=== PATIENT | male | born 1945 | race American Indian/Alaskan Native ===

== ENCOUNTER 2019-06-04 16:38 | Outpatient (CLI) | payer SELFPAY ==
[2019-06-04 17:12] LABS: Basophils # (Auto) 0.1 K/mm3 (0.0-0.1); Eosinophils # (Auto) 0.1 K/mm3 (0.0-0.4); Eosinophils % (Auto) 1.5 % (0.0-4.3); Hematocrit 34.4 % (35.5-45.6); Hemoglobin 10.9 gm/dl (11.8-15.2); Lymphocytes # (Auto) 0.8 K/mm3 (1.2-5.4); Lymphocytes % (Auto) 10.1 % (13.4-35.0); Mean Corpuscular HGB Conc 32 % (32-34); Mean Corpuscular Volume 86 fl (84-94); Monocytes # (Auto) 0.5 K/mm3 (0.0-0.8); Monocytes % (Auto) 6.3 % (0.0-7.3); Platelet Count 264 K/mm3 (140-440); Red Blood Count 4.02 M/mm3 (3.65-5.03); Red Cell Distribution Width 19.3 % (13.2-15.2)
[2019-06-04 17:46] LABS: INR 5.77 (0.87-1.13)
== END 2019-06-04 16:39 | disposition home or self-care (01) ==
LOC: LAB 16:38
PROVIDERS: ATTEND Internal Medicine
DX: I48.2 Chronic atrial fibrillation (principal); I12.0 Hypertensive chronic kidney disease with stage 5 chronic kidney disease or end stage renal disease; E11.22 Type 2 diabetes mellitus with diabetic chronic kidney disease; N18.6 End stage renal disease
CPT/HCPCS: 36415; 85025; 85610

== ENCOUNTER 2020-10-07 20:45 | Inpatient (IN) | payer MEDICARE ==
--- NOTE | 2020-10-07 21:07 | Consultation ---
History of Present Illness Consult date: 10/07/20 Medications and Allergies Allergies Allergy/AdvReac Type Severity Reaction Status Date / Time minoxidil Allergy Severe Angioedema Verified 07/30/13 01:36 Home Medications Medication Instructions Recorded Confirmed Last Taken Type Glimepiride [Amaryl] 1 mg PO QAM #30 tablet 08/09/13 Unknown Rx Metoprolol [Lopressor TAB] 100 mg PO BID #60 tablet 08/09/13 Unknown Rx Pantoprazole [Protonix] 40 mg PO QDAY #30 tablet 08/09/13 Unknown Rx Sodium Bicarbonate 650 mg PO TID #90 tablet 08/09/13 Unknown Rx Warfarin [Coumadin] 5 mg PO QDAY #30 tablet 08/09/13 Unknown Rx Warfarin [Coumadin] 5 mg PO QDAY #30 tablet 08/09/13 Unknown Rx cloNIDine [Catapres] 0.2 mg PO TID #90 tablet 08/09/13 Unknown Rx dilTIAZem CD [Cardizem CD] 120 mg PO BID #60 cap 08/09/13 Unknown Rx Assessment and Plan [facility] Tele[facility] Consult Services Date of Service: 10/07/2020 20:41:16 Impression: Rule Out Acute Ischemic Stroke Comments/Sign-Out: Patient with history of stroke (Aug), GI bleed (one week ago), CKD, left leg amputation Presents with aphasia Head CT: No acute Intracranial hemorrhage. NIHSS 14 Symptoms/presentation is consistent with Acute Ischemic Stroke. Due to recent Stroke and recent GI Bleed he is not a candidate for IV Alteplase. Will do STAT head and neck CTA to investigate for Large Vessel Occlusion. Mechanism of Stroke: Small Vessel Disease Metrics: Last Known Well: 10/07/2020 19:45:00 [facility] Notification Time: 10/07/2020 20:41:00 Arrival Time: 10/07/2020 20:45:00 Stamp Time: 10/07/2020 20:41:16 Time First Login Attempt: 10/07/2020 20:45:02 Video Start Time: 10/07/2020 20:45:02 Symptoms: aphasia NIHSS Start Assessment Time: 10/07/2020 20:56:00 Patient is not a candidate for Alteplase/Activase. Patient was not deemed candidate for Alteplase/Activase thrombolytics because of GI Malignancy or GI Bleeding (Within 21 Days). Video End Time: 10/07/2020 21:08:10 CT head was reviewed. Clinical Presentation is Suggestive of Large Vessel Occlusive Disease, Recommendations are as Follows CTA Head and Neck. ED Physician notified of diagnostic impression and management plan on 10/07/2020 21:11:45 Our recommendations are outlined below. Recommendations: Activate Stroke Protocol Admission/Order Set Stroke/Telemetry Floor Neuro Checks Bedside Swallow Eval DVT Prophylaxis IV Fluids, Normal Saline Head of Bed 30 Degrees Euglycemia and Avoid Hyperthermia (PRN Acetaminophen) Antiplatelet therapy if no contraindication (given recent GI Bleed) Noncontrast brain MRI consider ECHO Physical Therapy/Occupational Therapy/Speech Therapy Routine Consultation with Inhouse Neurology for Follow up Care Sign Out: Discussed with Emergency Department Provider History of Present Illness: Patient is a 74 year old Male. Patient was brought by EMS for symptoms of aphasia Patient with history of stroke (Aug), GI bleed (one week ago), CKD, left leg amputation last known well per EMS and Presenting symptoms/Chief compl aint/reason for consult: 19:45 Lost ability to speak. Anticoagulation or Antiplatelet use: no Chart reviewed for Pertinent medical, surgical, family history. Chart reviewed for Medications list and allergies. Pertinent positive and negative review of systems noted in History of Present Illness. There is history of recent stroke. Past Medical History: Stroke Anticoagulant use: No Antiplatelet use: No Examination: BP(171/83), Pulse(114), Blood Glucose(pending) 1A: Level of Consciousness - Movements to Pain + 2 1B: Ask Month and Age - Aphasic + 2 1C: Blink Eyes & Squeeze Hands - Performs Both Tasks + 0 2: Test Horizontal Extraocular Movements - Normal + 0 3: Test Visual Basurto - No Visual Loss + 0 4: Test Facial Palsy (Use Grimace if Obtunded) - Partial paralysis (lower face) + 2 5A: Test Left Arm Motor Drift - Drift, but doesn't hit bed + 1 5B: Test Right Arm Motor Drift - No Drift for 10 Seconds + 0 6A: Test Left Leg Motor Drift - Drift, hits bed + 2 6B: Test Right Leg Motor Drift - No Drift for 5 Seconds + 0 7: Test Limb Ataxia (FNF/Heel-Garibay) - No Ataxia + 0 8: Test Sensation - Normal; No sensory loss + 0 9: Test Language/Aphasia - Mute/Global Aphasia: No Usable Speech/Auditory Comprehension + 3 10: Test Dysarthria - Mute/Anarthric + 2 11: Test Extinction/Inattention - No abnormality + 0 NIHSS Score: 14 Patient/Family was informed the Neurology Consult would happen via TeleHealth consult by way of interactive audio and video telecommunications and consented to receiving care in this manner. Due to the immediate potential for life-threatening deterioration due to underlying acute neurologic illness, I spent 23 minutes providing critical care. This time includes time for face to face visit via telemedicine, review of medical records, imaging studies and discussion of findings with providers, the patient and/or family. Dr Taye Jensen [facility] Case [id number]
[2020-10-07] MEDS ORDERED: ASPIRIN 325 MG TAB PO ONE (21:18)
--- NOTE | 2020-10-07 21:18 | Cat Scan Report ---
CT HEAD WITHOUT CONTRAST INDICATION / CLINICAL INFORMATION: neuro deficits <6hrs or sx present upon awakening. Cerebrovascular accident. Code stroke patient. TECHNIQUE: All CT scans at this location are performed using CT dose reduction for ALARA by means of automated e xposure control. COMPARISON: None available. FINDINGS: HEMORRHAGE: No evidence of intracranial hemorrhage or extra-axial fluid collection. EXTRA-AXIAL SPACES: Cortical sulci and sylvian fissures are enlarged reflecting a degree of parenchym al volume loss which is within normal limits for the patient's age of . Basilar cisterns have an unre markable appearance. VENTRICULAR SYSTEM: The third and lateral ventricles are enlarged reflecting presence of age related parenchymal volume loss. CEREBRAL PARENCHYMA: A large area of decreased brain parenchymal attenuation is seen in the right cer ebral hemisphere involving portions of the frontal and parietal lobes. The appearance suggests the pr esence of a remote right MCA infarction. An area of decreased attenuation along the superior margin o f the insular cortex on the left may represent a remote small infarction. I do not identify definite evidence of an acute infarction. MIDLINE SHIFT OR HERNIATION: There is no mass effect. CEREBELLUM / BRAINSTEM: Brainstem has an unremarkable appearance. Age related cerebellar atrophy is n oted. MIDLINE STRUCTURES:Pituitary gland has an unremarkable appearance. No abnormalities are seen in the p ineal region. INTRACRANIAL VESSELS:Calcified atherosclerotic plaque is present along the course of the cavernous se gments of both internal carotid arteries. Similar findings are seen at the distal vertebral arteries. ORBITS: visualized portions of the orbits have an unremarkable appearance. SOFT TISSUES of HEAD: No significant abnormality. CALVARIUM: Evaluation of bone windows reveals no abnormalities. PARANASAL SINUSES / MASTOID AIR CELLS: Paranasal sinuses are free from inflammatory mucosal disease. Mastoid air cells are normally pneumatized. IMPRESSION: 1. Findings indicate the presence of remote right MCA infarction and possible old left insular infarc tion. 2. No indication of intracranial hemorrhage or mass. CODE STROKE: Time of Communication (GUEST SERVICES ATTENDANT/CDT): 2010 Central standard time Licensed Practitioner Receiving Report: Dr. Fox of the [facility] emergency de partment. Signer Name: Christiano Hopper MD Signed: 10/07/2020 9:14 PM Workstation Name: [id number]
--- NOTE | 2020-10-07 21:18 | Emergency Department Report ---
HPI - General Time Seen by Provider: 10/07/20 20:49 - HPI HPI: Room 1 The patient is a 74-year-old male present with a chief complaint of aphasia. Per EMS patient began having difficulty speaking approximately 1 hour prior to arrival. Patient has had a recent CVA but was able to speak per EMS. Approximate 1 hour prior to arrival the patient appeared to attempt to speak but was not able to get any words out. Patient mumbles and moans sounds but no clear words are appreciated. Patient communicates by shaking and nodding his head ED Past Medical Hx - Past Medical History Hx Hypertension: Yes Hx CVA: Yes Hx Diabetes: Yes Additional medical history: GI bleed - Family History Family history: no significant - Social History Smoking Status: Unknown if ever smoked Substance Use Type: None - Medications Home Medications: Home Medications Medication Instructions Recorded Confirmed Last Taken Type Glimepiride [Amaryl] 1 mg PO QAM #30 tablet 08/09/13 10/07/20 1 Day Ago Rx ~10/06/20 Pantoprazole [Protonix] 40 mg PO QDAY #30 tablet 08/09/13 10/07/20 1 Day Ago Rx ~10/06/20 Apixaban [Eliquis] 2.5 mg PO BID 10/07/20 10/07/20 1 Day Ago History ~10/06/20 AtorvaSTATin [Lipitor] 40 mg PO QHS 10/07/20 10/07/20 1 Day Ago History ~10/06/20 Calcium Acetate [Phoslo] 667 mg PO TID 10/07/20 10/07/20 1 Day Ago History ~10/06/20 Cyproheptadine 4 mg PO DAILY 10/07/20 10/07/20 Unknown History Folic Acid 1 mg PO DAILY 10/07/20 10/07/20 1 Day Ago History ~10/06/20 L. Acidophilus/Bifid. Animalis 1 each PO DAILY 10/07/20 10/07/20 Unknown History [Dialyvite Chewable Probiotic] Losartan [Cozaar] 25 mg PO QDAY 10/07/20 10/07/20 1 Day Ago History ~10/06/20 Metoprolol [Lopressor TAB] 50 mg PO BID 10/07/20 10/07/20 1 Day Ago History ~10/06/20 Vancomycin 1,250 mg/12.5 ml Vl 125 mg PO DAILY 10/07/20 10/07/20 1 Day Ago History ~10/06/20 amLODIPine [Norvasc] 10 mg PO DAILY 10/07/20 10/07/20 1 Day Ago History ~10/06/20 ED Review of Systems ROS: Stated complaint: POSS STROKE Other details as noted in HPI Comment: Unobtainable due to pts medical conditions (Aphasia) Physical Exam - Physical Exam Physical Exam: GENERAL: The patient is well-developed well-nourished male lying on stretcher not appearing to be in acute distress. [] HEENT: Normocephalic. Atraumatic. Extraocular motions are intact. Patient has moist mucous membranes. NECK: Supple. Trachea midline CHEST/LUNGS: Clear to auscultation. There is no respiratory distress noted. HEART/CARDIOVASCULAR: Regular. There is no tachycardia. There is no gallop rub or murmur. ABDOMEN: Abdomen is soft, nontender. Patient has normal bowel sounds. There is no abdominal distention. SKIN: There is no rash. There is no edema. There is no diaphoresis. NEURO: The patient is awake and alert. The patient is cooperative. The patient is aphasic. Cranial nerves II to XII grossly intact with exception of tongue deviating to the right MUSCULOSKELETAL: There is no evidence of acute injury. ED Course - Consultations Consultation #1: 10/07/20 21:12 Case discussed with telemetry neurologist-no TPA. Recommend CTA brain and neck. If negative admit for CVA work-up ED Medical Decision Making - Lab Data Result diagrams: 10/07/20 21:09 10/07/20 21:09 - Radiology Data Radiology results: report reviewed (CT head, CTA head, CTA neck), image reviewed (CT head, CTA neck, CTA head) [facility] [address] [place] [address] Cat Scan Report Signed Patient: Rob HARTMAN JR MR#: [id number] 5 : 1945 Acct:[id number] Age/Sex: 74 / M ADM Date: 10/07/20 Loc: ED Attending Dr: Ordering Physician: SAUNDRA PARKINSON MD Date of Service: 10/07/20 Procedure(s): CT head/brain wo con Accession Number(s): [id number] cc: SAUNDRA PARKINSON MD CT HEAD WITHOUT CONTRAST INDICATION / CLINICAL INFORMATION: neuro deficits <6hrs or sx present upon awakening. Cerebrovascular accident. Code stroke patient. TECHNIQUE: All CT scans at this location are performed using CT dose reduction for ALARA by means of automated exposure control. COMPARISON: None available. FINDINGS: HEMORRHAGE: No evidence of intracranial hemorrhage or extra-axial fluid collection. EXTRA-AXIAL SPACES: Cortical sulci and sylvian fissures are enlarged reflecting a degree of parenchymal volume loss which is within normal limits for the patient's age of . Basilar cisterns have an unremarkable appearance. VENTRICULAR SYSTEM: The third and lateral ventricles are enlarged reflecting presence of age related parenchymal volume loss. CEREBRAL PARENCHYMA: A large area of decreased brain parenchymal attenuation is seen in the right cerebral hemisphere involving portions of the frontal and parietal lobes. The appearance suggests the presence of a remote right MCA infarction. An area of decreased attenuation along the superior margin of the insular cortex on the left may represent a remote small infarction. I do not identify definite evidence of an acute infarction. MIDLINE SHIFT OR HERNIATION: There is no mass effect. CEREBELLUM / BRAINSTEM: Brainstem has an unremarkable appearance. Age related cerebellar atrophy is noted. MIDLINE STRUCTURES:Pituitary gland has an unremarkable appearance. No abnormalities are seen in the pineal region. INTRACRANIAL VESSELS:Calcified atherosclerotic plaque is present along the course of the cavernous segments of both internal carotid arteries. Similar findings are seen at the distal vertebral arteries. ORBITS: visualized portions of the orbits have an unremarkable appearance. SOFT TISSUES of HEAD: No significant abnormality. CALVARIUM: Evaluation of bone windows reveals no abnor malities. PARANASAL SINUSES / MASTOID AIR CELLS: Paranasal sinuses are free from inflammatory mucosal disease. Mastoid air cells are normally pneumatized. IMPRESSION: 1. Findings indicate the presence of remote right MCA infarction and possible old left insular infarction. 2. No indication of intracranial hemorrhage or mass. CODE STROKE: Time of Communication (VALVE LAPPER/CDT): 2010 Central standard time Licensed Practitioner Receiving Report: Dr. Parkinson of the [facility] emergency department. Signer Name: Christiano Hopper MD Signed: 10/07/2020 9:14 PM Workstation Name: [id number] Transcribed By: Dictated By: Christiano Hopper MD Electronically Authenticated By: Christiano Hopper MD Signed Date/Time: 10/07/202113 DD/ 99 TD/TT: [facility] [address] [id number] Cat Scan Report Signed Patient: Rob HARTMAN JR MR#: [id number] 5 : 1945 Acct:[id number] Age/Sex: 74 / M ADM Date: 10/07/20 Loc: ED Attending Dr: Ordering Physician: GERALD VALDEZ MD Date of Service: 10/07/20 Procedure(s): CT angio neck Accession Number(s): [id number] cc: GERALD VALDEZ MD CTA neck without and with intravenous contrast material CLINICAL HISTORY: stroke TECHNIQUE: Following acquisition of a timing bolus 0.625 mm thick contiguous axial scans were obtained from aortic arch to the skull base during rapid bolus intravenous contrast infusion. In addition to evaluation of axial source images multiplanar reconstructions were produced and reviewed for this report. 3 plane MIP reconstructions were produced and reviewed. Contrast dose report: Omnipaque 350: 100 ml, administered intravenously All CT examinations performed at this facility utilize modulated dose reduction, iterative reconstruction or weight-ba sed dosing, as appropriate, to obtain a radiation dose which is as low as can reasonably be achieved. FINDINGS: Thoracic aorta:Calcified atherosclerotic plaque is present along the aortic arch. No additional abnormalities are identified along the course of the visualized portions of the thoracic aor ta..The origins of the great vessels have an unremarkable appearance. Brachiocephalic artery, left common carotid artery origin and left subclavian artery are all free from hemodynamically significant atherosclerotic disease.. Right carotid artery: Mild calcified atherosclerotic plaque is seen at the right carotid bifurcation. There is no associated stenosis. Common carotid artery and cervical segments of the R ICA are free from significant atherosclerotic disease. Left carotid artery: Mild calcified atherosclerotic plaque is observed at the left carotid bifurcation. Left common carotid artery and cervical portions of the LICA are free from significant intercranial atherosclerotic disease. Posterior circulation: Right vertebral artery is dominant. Both vertebral arteries contribute to the basilar artery origin. The degree of stenosis, if any, is determined utilizing NASCET like criteria. In this case there is no indication of hemodynamically significant stenosis at the carotid bifurcations or elsewhere. Evaluation of the nonvascular soft tissue structures reveal no abnormality. There is no indication of cervical lymphadenopathy. No abnormalities are seen along the course of the airway. Visualized portions of the parotid glands and the submandibular salivary glands have a normal a ppearance. Thyroid gland has a normal appearance. Evaluation of the lung apices reveals no evidence of lung nodule or infiltrate. Small bilateral pleural effusions are demonstrated. Evaluation of the cervical spine is remarkable for widespread cervical spondylosis with no definite central canal stenosis. Note is made of a multi lumen right internal jugular central venous catheter. Catheter tip is not included on this study. IMPRESSION: 1. No indication of hemodynamically significant stenosis at the carotid bifurcations or elsewhere. Signer Name: Christiano Hopper MD Signed: 10/07/2020 10:53 PM Workstation Name: [id number] Transcribed By: Dictated By: Christiano Hopper MD Electronically Authenticated By: Christiano Hopper MD Signed Date/Time: 10/07/202252 DD/ 33 TD/TT: [place] [address] Cat Scan Report Signed Patient: Rob HARTMAN JR MR#: [id number] 5 : 1945 Acct:[id number] Age/Sex: 74 / M ADM Date: 10/07/20 Loc: ED Attending Dr: Ordering Physician: GERALD VALDEZ MD Date of Service: 10/07/20 Procedure(s): CT angio head Accession Number(s): [id number] cc: GERALD VALDEZ MD CTA head with intravenous contrast CLINICAL HISTORY: stroke TECHNIQUE: 0.625 mm thick contiguous axial scans were obtained from the skull base to the skull vertex during rapid bolus administration of intravenous contrast material. Multiplanar reconstructions were produced in the coronal and sagittal planes. In addition 3 plane MIP instructions were produced and reviewed for this report. The axial source images and reconstructed images were reviewed for this report. CONTRAST DOSE REPORT: Omnipaque 350: 100 ml administered intravenously. All CT scans at this location are performed using CT dose reduction for ALARA by means of automated exposure control. FINDINGS: Internal carotid arteries: Calcified atherosclerotic plaque is present along the course of the cavernous segments of both internal carotid arteries. There is no associated hemodynamically significant stenosis. Middle cerebral arteries:Normal and symmetrical M1 segments of the middle cerebral arteries are demonstrated. No abnormalities are seen on evaluation of the insular or opercular branches. Anterior cerebral arteries:Bilaterally symmetrical A1 segments are demonstrated. An intact anterior communicating artery is identified. No abnormalities are seen along the course of the A2 segments or their visualized pericallosal branches. Vertebral arteries:Bilaterally symmetrical vertebral arteries are demonstrated. Both vert ebral arteries contribute to the basilar artery origin. Basilar artery:Basilar artery has an unremarkable appearance. Posterior cerebral arteries: Bilaterally symmetrical posterior cerebral arteries are identified. Small posterior communicating arteries are present bilaterally. Dural sinuses: Dural venous sinuses are well demonstrated on this exam. There is no evidence of dural sinus thrombosis. IMPRESSION: 1. No evidence of intracranial stenosis or large vessel occlusion. Signer Name: Christiano Hopper MD Signed: 10/07/2020 10:48 PM Workstation Name: [id number] Transcribed By: Dictated By: Christiano Hopper MD Electronically Authenticated By: Christiano Hopper MD Signed Date/Time: 10/07/202247 DD/ 37 TD/TT: - Medical Decision Making Patient took Eliquis today. Subsequently, aspirin not administered in the ED - Differential Diagnosis CVA Critical care attestation.: If time is entered above; I have spent that time in minutes in the direct care of this critically ill patient, excluding procedure time. ED Disposition Clinical Impression: CVA (cerebral vascular accident) Disposition: -09 OP ADMIT IP TO THIS HOSP Is pt being admited?: Yes Does the pt Need Aspirin: No Condition: Fair Referrals: EMERALD HAYES MD [Primary Care Provider] - 3-5 Days Time of Disposition: 23:05 (Hospitalist paged (Dr Gaston))
[2020-10-07 21:21] LABS: Basophils # (Auto) 0.1 K/mm3 (0.0-0.1); Eosinophils # (Auto) 0.3 K/mm3 (0.0-0.4); Hematocrit 22.9 % (35.5-45.6); Hemoglobin 7.7 gm/dl (11.8-15.2); Lymphocytes # (Auto) 0.9 K/mm3 (1.2-5.4); Lymphocytes % (Auto) 15.7 % (13.4-35.0); Mean Corpuscular HGB Conc 34 % (32-34); Mean Corpuscular Volume 89 fl (84-94); Monocytes # (Auto) 0.5 K/mm3 (0.0-0.8); Monocytes % (Auto) 8.8 % (0.0-7.3); Platelet Count 192 K/mm3 (140-440); Red Blood Count 2.58 M/mm3 (3.65-5.03); Red Cell Distribution Width 16.9 % (13.2-15.2)
[2020-10-07] MEDS ORDERED: ASPIRIN EC 325 MG TAB PO ONE (21:21)
[2020-10-07 21:30] LABS: Calcium 9.7 mg/dL (8.4-10.2)
[2020-10-07 21:34] LABS: INR 1.15 (0.87-1.13)
[2020-10-07 21:48] LABS: Chol/HDL Ratio 1.84 %
--- NOTE | 2020-10-07 22:53 | Cat Scan Report ---
CTA head with intravenous contrast CLINICAL HISTORY: stroke TECHNIQUE: 0.625 mm thick contiguous axial scans were obtained from the skull base to the skull vertex during r apid bolus administration of intravenous contrast material. Multiplanar reconstructions were produced in the coronal and sagittal planes. In addition 3 plane MIP instructions were produced and reviewed for this report. The axial source images and reconstructed images were reviewed for this report. CONTRAST DOSE REPORT: Omnipaque 350: 100 ml administered intravenously. All CT scans at this location are performed using CT dose reduction for ALARA by means of automated e xposure control. FINDINGS: Internal carotid arteries: Calcified atherosclerotic plaque is present along the course of the cavern ous segments of both internal carotid arteries. There is no associated hemodynamically significant st enosis. Middle cerebral arteries:Normal and symmetrical M1 segments of the middle cerebral arteries are demon strated. No abnormalities are seen on evaluation of the insular or opercular branches. Anterior cerebral arteries:Bilaterally symmetrical A1 segments are demonstrated. An intact anterior c ommunicating artery is identified. No abnormalities are seen along the course of the A2 segments or t heir visualized pericallosal branches. Vertebral arteries:Bilaterally symmetrical vertebral arteries are demonstrated. Both vertebral arteri es contribute to the basilar artery origin. Basilar artery:Basilar artery has an unremarkable appearance. Posterior cerebral arteries: Bilaterally symmetrical posterior cerebral arteries are identified. Smal l posterior communicating arteries are present bilaterally. Dural sinuses: Dural venous sinuses are well demonstrated on this exam. There is no evidence of dural sinus thrombosis. IMPRESSION: 1. No evidence of intracranial stenosis or large vessel occlusion. Signer Name: Christiano Hopper MD Signed: 10/07/2020 10:48 PM Workstation Name: [id number]
--- NOTE | 2020-10-07 22:58 | Cat Scan Report ---
CTA neck without and with intravenous contrast material CLINICAL HISTORY: stroke TECHNIQUE: Following acquisition of a timing bolus 0.625 mm thick contiguous axial scans were obtained from aort ic arch to the skull base during rapid bolus intravenous contrast infusion. In addition to evaluation of axial source images multiplanar reconstructions were produced and reviewed for this report. 3 masoud ne MIP reconstructions were produced and reviewed. Contrast dose report: Omnipaque 350: 100 ml, administered intravenously All CT examinations performed at this facility utilize modulated dose reduction, iterative reconstruc tion or weight-based dosing, as appropriate, to obtain a radiation dose which is as low as can reason ably be achieved. FINDINGS: Thoracic aorta:Calcified atherosclerotic plaque is present along the aortic arch. No additional abnor malities are identified along the course of the visualized portions of the thoracic aorta..The origin s of the great vessels have an unremarkable appearance. Brachiocephalic artery, left common carotid a rtery origin and left subclavian artery are all free from hemodynamically significant atherosclerotic disease.. Right carotid artery: Mild calcified atherosclerotic plaque is seen at the right carotid bifurcation. There is no associated stenosis. Common carotid artery and cervical segments of the R ICA are free f rom significant atherosclerotic disease. Left carotid artery: Mild calcified atherosclerotic plaque is observed at the left carotid bifurcatio n. Left common carotid artery and cervical portions of the LICA are free from significant intercrania l atherosclerotic disease. Posterior circulation: Right vertebral artery is dominant. Both vertebral arteries contribute to the basilar artery origin. The degree of stenosis, if any, is determined utilizing NASCET like criteria. In this case there is no indication of hemodynamically significant stenosis at the carotid bifurcations or elsewhere. Evaluation of the nonvascular soft tissue structures reveal no abnormality. There is no indication of cervical lymphadenopathy. No abnormalities are seen along the course of the airway. Visualized porti ons of the parotid glands and the submandibular salivary glands have a normal appearance. Thyroid gla nd has a normal appearance. Evaluation of the lung apices reveals no evidence of lung nodule or infil trate. Small bilateral pleural effusions are demonstrated. Evaluation of the cervical spine is remarkable for widespread cervical spondylosis with no definite c entral canal stenosis. Note is made of a multi lumen right internal jugular central venous catheter. Catheter tip is not inc luded on this study. IMPRESSION: 1. No indication of hemodynamically significant stenosis at the carotid bifurcations or elsewhere. Signer Name: Christiano Hopper MD Signed: 10/07/2020 10:53 PM Workstation Name: [id number]
[2020-10-07] MEDS ORDERED: ONDANSETRON 4 MG/2 ML INJ IV PRN ×2 (23:14)
[2020-10-07] MEDS ORDERED: PROMETHAZINE 25 MG RECT SUPP PR PRN (23:14)
[2020-10-07] MEDS ORDERED: ACETAMINOPHEN 325 MG TAB PO PRN (23:14)
[2020-10-07] MEDS ORDERED: MAGNESIUM HYDROXIDE (MOM) ORAL LIQD UDC PO PRN (23:14)
[2020-10-07] MEDS ORDERED: METOCLOPRAMIDE 10 MG TAB PO PRN (23:14)
[2020-10-07] MEDS ORDERED: DEXTROSE 50% IN WATER (25GM) 50 ML SYRINGE IV PRN (23:14)
[2020-10-07] MEDS ORDERED: SODIUM CHLORIDE 0.9% 1000 ML 1,000 ML IV SCH (23:15)
--- NOTE | 2020-10-07 23:29 | History and Physical Report ---
History of Present Illness Date of examination: 10/07/20 Date of admission: 10/07/2020 Chief complaint: Aphasia History of present illness: 74-year-old male with known history of hypertension, diabetes mellitus, history of GI bleed and CVA in the past presented to the emergency room today with chief complaint of difficulty speaking for about an hour prior to arrival in the emergency room. Most of the history was gotten from the ER staff as patient is only able to mumble some words. He was also able to respond by nodding or shaking his head when asked questions. Patient was said to have had a stroke about a week ago. Upon arrival in the emergency room patient's condition improved and was able to put out some words. He was also evaluated by the tele-neurologist. He was deemed not to be a TPA candidate . CT scan of the head reveals: the presence of remote right MCA infarction and possible old left insular infarction. No indication of intracranial hemorrhage or mass He has been admitted for evaluation of possible CVA. Past History Past Medical History: diabetes, GERD, hypertension, hyperlipidemia, stroke, other (GI bleed) Past Surgical History: No surgical history Social history: no significant social history Family history: no significant family history Medications and Allergies Allergies Allergy/AdvReac Type Severity Reaction Status Date / Time minoxidil Allergy Severe Angioedema Verified 07/30/13 01:36 Home Medications Medication Instructions Recorded Confirmed Last Taken Type Glimepiride [Amaryl] 1 mg PO QAM #30 tablet 08/09/13 10/07/20 1 Day Ago Rx ~10/06/20 Pantoprazole [Protonix] 40 mg PO QDAY #30 tablet 08/09/13 10/07/20 1 Day Ago Rx ~10/06/20 Apixaban [Eliquis] 2.5 mg PO BID 10/07/20 10/07/20 1 Day Ago History ~10/06/20 AtorvaSTATin [Lipitor] 40 mg PO QHS 10/07/20 10/07/20 1 Day Ago History ~10/06/20 Calcium Acetate [Phoslo] 667 mg PO TID 10/07/20 10/07/20 1 Day Ago History ~10/06/20 Cyproheptadine 4 mg PO DAILY 10/07/20 10/07/20 Unknown History Folic Acid 1 mg PO DAILY 10/07/20 10/07/20 1 Day Ago History ~10/06/20 L. Acidophilus/Bifid. Animalis 1 each PO DAILY 10/07/20 10/07/20 Unknown History [Dialyvite Chewable Probiotic] Losartan [Cozaar] 25 mg PO QDAY 10/07/20 10/07/20 1 Day Ago History ~10/06/20 Metoprolol [Lopressor TAB] 50 mg PO BID 10/07/20 10/07/20 1 Day Ago History ~10/06/20 Vancomycin 1,250 mg/12.5 ml Vl 125 mg PO DAILY 10/07/20 10/07/20 1 Day Ago History ~10/06/20 amLODIPine [Norvasc] 10 mg PO DAILY 10/07/20 10/07/20 1 Day Ago History ~10/06/20 Active Meds: Active Medications Acetaminophen (Tylenol) 650 mg PO Q4H PRN PRN Reason: Pain MILD(1-3)/Fever >100.5/HAMMONDS Acetaminophen (Tylenol) 650 mg PO Q4H PRN PRN Reason: Pain, Mild (1-3) Bisacodyl (Dulcolax) 10 mg [place] QDAY PRN PRN Reason: Constipation Magnesium Hydroxide (Milk Of Magnesia) 30 ml PO Q4H PRN PRN Reason: Constipation Metoclopramide HCl (Reglan) 10 mg PO Q6H PRN PRN Reason: Nausea And Vomiting Ondansetron HCl (Zofran) 4 mg IV Q8H PRN PRN Reason: Nausea And Vomiting Promethazine HCl (Phenergan) 25 mg [place] Q6H PRN PRN Reason: Nausea And Vomiting Sodium Chloride (Sodium Chloride Flush Syringe 10 Ml) 10 ml IV BID [place] Sodium Chloride (Sodium Chloride Flush Syringe 10 Ml) 10 ml IV PRN PRN PRN Reason: LINE FLUSH Sodium Chloride (Sodium Chloride Flush Syringe 10 Ml) 10 ml INJ PRN PRN PRN Reason: LINE FLUSH Review of Systems ROS unobtainable: due to mental status Exam - Constitutional Vitals: Temp Pulse Resp BP Pulse Ox 83 18 164/89 96 10/07/20 22:47 10/07/20 22:47 10/07/20 22:47 10/07/20 22:47 General appearance: Present: no acute distress, well-nourished, other (Moderate Pallor) - EENT Eyes: Present: PERRL, EOM intact. Absent: scleral icterus ENT: hearing intact, clear oral mucosa, dentition normal - Neck Neck: Present: supple, normal ROM - Respiratory Respiratory effort: normal Respiratory: bilateral: CTA - Cardiovascular Rhythm: regular Heart Sounds: Present: S1 & S2. Absent: gallop, systolic murmur, diastolic murmur, rub - Extremities Extremities: No edema, Full ROM, abnormal (Bilateral BKA, Dressing over stump of right BKA) Peripheral Pulses: within normal limits - Abdominal General gastrointestinal: Present: soft, non-tender, non-distended, normal bowel sounds. Absent: mass - Integumentary Integumentary: Present: clear, warm, dry - Musculoskeletal Musculoskeletal: strength equal bilaterally - Psychiatric Psychiatric: cooperative - Neurologic Neurologic: CNII-XII intact, moves all extremities, other (Mild facial assymetry) HEART Score - HEART Score Troponin: Troponin T 0.358 ng/mL (0.00-0.029) H* 10/07/20 21:09 Results - Labs CBC & Chem 7: 10/07/20 21:09 10/07/20 21:09 Labs: Abnormal lab results 10/07/20 10/07/20 10/07/20 Range/Units 21:09 21:09 21:09 RBC 2.58 L (3.65-5.03) M/mm3 Hgb 7.7 L (11.8-15.2) gm/dl Hct 22.9 L (35.5-45.6) % RDW 16.9 H (13.2-15.2) % [place] % (Auto) 8.8 H (0.0-7.3) % Eos % (Auto) 5.0 H (0.0-4.3) % Lymph # (Auto) 0.9 L (1.2-5.4) K/mm3 INR 1.15 H (0.87-1.13) Thrombin Time (15.1-19.6) Sec. Creatinine 3.4 H (0.8-1.3) mg/dL Glucose 195 H (75-100) mg/dL POC Glucose (70-105) mg/dL Troponin T 0.358 H* (0.00-0.029) ng/mL LDL Cholesterol Direct 38 L (50-130) mg/dL HDL Cholesterol 64 H (40-59) mg/dL 10/07/20 10/07/20 Range/Units 21:09 21:34 RBC (3.65-5.03) M/mm3 Hgb (11.8-15.2) gm/dl Hct (35.5-45.6) % RDW (13.2-15.2) % [place] % (Auto) (0.0-7.3) % Eos % (Auto) (0.0-4.3) % Lymph # (Auto) (1.2-5.4) K/mm3 INR (0.87-1.13) Thrombin Time 15.0 L (15.1-19.6) Sec. Creatinine (0.8-1.3) mg/dL Glucose (75-100) mg/dL POC Glucose 253 H (70-105) mg/dL Troponin T (0.00-0.029) ng/mL LDL Cholesterol Direct (50-130) mg/dL HDL Cholesterol (40-59) mg/dL Assessment and Plan - Patient Problems (1) CVA (cerebral vascular accident) Current Visit: Yes Status: Acute Plan to address problem: Patient will be scheduled for carotid Doppler and MRI of the brain. We will place a consult to neurology for evaluation. We will also place patient on daily aspirin and statin (2) Anemia Current Visit: No Status: Chronic Plan to address problem: This appears chronic. We will monitor CBC and transfuse with packed red blood cells if needed. (3) Hypertension Current Visit: No Status: Chronic Plan to address problem: We will monitor vital signs closely and resume routine home medications once reconciled. (4) Type 2 diabetes mellitus Current Visit: No Status: Chronic Plan to address problem: We will monitor Accu-Cheks closely. (5) End stage renal disease Current Visit: No Status: Chronic Plan to address problem: Will appreciate Nephrology follow up. (6) DVT prophylaxis Current Visit: Yes Status: Acute Plan to address problem: Patient currently on anticoagulation. (7) Full code status Current Visit: Yes Status: Acute
[2020-10-08] MEDS ORDERED: METOPROLOL TARTRATE 50 MG TAB PO SCH (08:00)
[2020-10-08] MEDS ORDERED: VANCOMYCIN PO SCH (10:00)
[2020-10-08] MEDS ORDERED: [UNRECOGNIZED DRUG - OTHER] PO SCH (10:00)
[2020-10-08] MEDS ORDERED: ASPIRIN 325 MG TAB PO SCH (10:00)
--- NOTE | 2020-10-08 10:19 | Consultation ---
Past History Past Medical History: diabetes, GERD, hypertension, hyperlipidemia, stroke, other (GI bleed) Past Surgical History: No surgical history Social history: no significant social history Family history: no significant family history Medications and Allergies Allergies Allergy/AdvReac Type Severity Reaction Status Date / Time minoxidil Allergy Severe Angioedema Verified 07/30/13 01:36 Home Medications Medication Instructions Recorded Confirmed Last Taken Type Glimepiride [Amaryl] 1 mg PO QAM #30 tablet 08/09/13 10/07/20 1 Day Ago Rx ~10/06/20 Pantoprazole [Protonix] 40 mg PO QDAY #30 tablet 08/09/13 10/07/20 1 Day Ago Rx ~10/06/20 Apixaban [Eliquis] 2.5 mg PO BID 10/07/20 10/07/20 1 Day Ago History ~10/06/20 AtorvaSTATin [Lipitor] 40 mg PO QHS 10/07/20 10/07/20 1 Day Ago History ~10/06/20 Calcium Acetate [Phoslo] 667 mg PO TID 10/07/20 10/07/20 1 Day Ago History ~10/06/20 Cyproheptadine 4 mg PO DAILY 10/07/20 10/07/20 Unknown History Folic Acid 1 mg PO DAILY 10/07/20 10/07/20 1 Day Ago History ~10/06/20 L. Acidophilus/Bifid. Animalis 1 each PO DAILY 10/07/20 10/07/20 Unknown History [Dialyvite Chewable Probiotic] Losartan [Cozaar] 25 mg PO QDAY 10/07/20 10/07/20 1 Day Ago History ~10/06/20 Metoprolol [Lopressor TAB] 50 mg PO BID 10/07/20 10/07/20 1 Day Ago History ~10/06/20 Vancomycin 1,250 mg/12.5 ml Vl 125 mg PO DAILY 10/07/20 10/07/20 1 Day Ago History ~10/06/20 amLODIPine [Norvasc] 10 mg PO DAILY 10/07/20 10/07/20 1 Day Ago History ~10/06/20 Active Meds: Active Medications Acetaminophen (Tylenol) 650 mg PO Q4H PRN PRN Reason: Pain, Mild (1-3) Amlodipine Besylate (Amlodipine) 10 mg PO DAILY@0800 [place] Apixaban (Eliquis) 2.5 mg PO BID [facility] [place]; Protocol Aspirin (Halfprin Ec) 81 mg PO QDAY [facility] [place] Atorvastatin Calcium (Lipitor) 40 mg PO QHS [facility] [place] Bisacodyl (Dulcolax) 10 mg [place] QDAY PRN PRN Reason: Constipation Calcium Acetate (Phoslo) 667 mg PO TIDWM [facility] [place] Cyproheptadine HCl (Periactin) 4 mg PO DAILY [facility] [place] Dextrose (D50w (25gm) Syringe) 0 ml IV Q30MIN PRN; Protocol PRN Reason: Hypoglycemia Folic Acid (Folvite) 1 mg PO DAILY [facility] [place] Hydralazine HCl (Apresoline) 100 mg PO TID [facility] [place] Sodium Chloride (Nacl 0.9% 1000 Ml) 1,000 mls @ 75 mls/hr IV DIRECT [facility] [place] Insulin Human Lispro (Humalog) 0 unit SUB-Q ACHS [facility] [place]; Protocol Lactobacillus Acidophilus (Lactinex) 1 each PO QDAY [facility] [place] Losartan Potassium (Cozaar) 25 mg PO QDAY [facility] [place] Magnesium Hydroxide (Milk Of Magnesia) 30 ml PO Q4H PRN PRN Reason: Constipation Metoclopramide HCl (Reglan) 5 mg PO Q6H PRN PRN Reason: Nausea And Vomiting Metoprolol Tartrate (Metoprolol) 50 mg PO BID@0800,1700 [facility] [place] Morphine Sulfate (Morphine) 2 mg IV Q4H PRN PRN Reason: Pain, Moderate (4-6) Ondansetron HCl (Zofran) 4 mg IV Q8H PRN PRN Reason: Nausea And Vomiting Pantoprazole Sodium (Protonix) 40 mg PO QDAY [facility] [place] Promethazine HCl (Phenergan) 25 mg [place] Q6H PRN PRN Reason: Nausea And Vomiting Sodium Chloride (Sodium Chloride Flush Syringe 10 Ml) 10 ml IV BID [facility] [place] Sodium Chloride (Sodium Chloride Flush Syringe 10 Ml) 10 ml IV PRN PRN PRN Reason: LINE FLUSH Physical Examination Vital Signs Pulse Resp BP Pulse Ox 83 12 171/83 99 10/07/20 21:46 10/07/20 21:46 10/07/20 21:46 10/07/20 21:46 Results 10/07/20 21:09 10/07/20 21:09 Coagulation 10/07/20 Range/Units 21:09 PT 14.8 (12.2-14.9) Sec. INR 1.15 H (0.87-1.13) APTT 33.0 (24.2-36.6) Sec. Lipids 10/07/20 Range/Units 21:09 Triglycerides 97 (2-149) mg/dL Cholesterol 118 (50-199) mg/dL HDL Cholesterol 64 H (40-59) mg/dL Cholesterol/HDL Ratio 1.84 % CBC 10/07/20 Range/Units 21:09 WBC 5.5 (4.5-11.0) K/mm3 RBC 2.58 L (3.65-5.03) M/mm3 Hgb 7.7 L (11.8-15.2) gm/dl Hct 22.9 L (35.5-45.6) % Plt Count 192 (140-440) K/mm3 Lymph # (Auto) 0.9 L (1.2-5.4) K/mm3 [place] # (Auto) 0.5 (0.0-0.8) K/mm3 Eos # (Auto) 0.3 (0.0-0.4) K/mm3 Baso # (Auto) 0.1 (0.0-0.1) K/mm3 Comprehensive Metabolic Panel 10/07/20 Range/Units 21:09 Sodium 137 (137-145) mmol/L Potassium 3.7 (3.6-5.0) mmol/L Chloride 98.9 (98-107) mmol/L Carbon Dioxide 27 (22-30) mmol/L BUN 15 (9-20) mg/dL Creatinine 3.4 H (0.8-1.3) mg/dL Glucose 195 H (75-100) mg/dL Calcium 9.7 (8.4-10.2) mg/dL Assessment and Plan full consult dictated.
[2020-10-08] MEDS ORDERED: SODIUM CHLORIDE 0.9% 1000 ML 1,000 ML ONE (10:20)
[2020-10-08] MEDS ORDERED: PANTOPRAZOLE 40 MG TAB PO ONE (10:21)
[2020-10-08] MEDS ORDERED: METOPROLOL TARTRATE 50 MG TAB ONE (10:21)
[2020-10-08] MEDS ORDERED: FOLIC ACID 1 MG TAB ONE (10:21)
[2020-10-08] MEDS ORDERED: ASPIRIN EC 81 MG TAB PO ONE (10:22)
[2020-10-08] MEDS ORDERED: hydrALAZINE 100 MG TAB ONE ×2 (10:22→11:42)
[2020-10-08] MEDS ORDERED: amLODIPine 10 MG TAB ONE (10:22)
[2020-10-08] MEDS ORDERED: APIXABAN 5 MG TAB ONE (10:22)
[2020-10-08] MEDS ORDERED: LOSARTAN 50 MG TAB ONE (10:23)
[2020-10-08] MEDS: PANTOPRAZOLE 40 MG TAB PO SCH (10:40)
[2020-10-08] MEDS: ASPIRIN EC 81 MG TAB PO SCH (10:40)
[2020-10-08] MEDS: hydrALAZINE 100 MG TAB PO SCH ×3 (10:41→21:40)
[2020-10-08] MEDS: FOLIC ACID 1 MG TAB PO SCH (10:41)
[2020-10-08] MEDS: amLODIPine 10 MG TAB PO SCH (10:50)
[2020-10-08] MEDS: LOSARTAN 25 MG TAB PO SCH (10:50)
[2020-10-08] MEDS: APIXABAN 2.5 MG TAB PO SCH ×2 (10:50→21:40)
[2020-10-08] MEDS: INSULIN LISPRO 100 UNIT/ML VIAL 3 mL SUB-Q SCH ×4 (11:25→21:40)
[2020-10-08] MEDS ORDERED: METOPROLOL TARTRATE 5 MG/5 ML INJ IV ONE (11:42)
[2020-10-08] MEDS: LACTINEX CHEW TAB PO SCH (12:05)
[2020-10-08] MEDS: CALCIUM ACETATE 667 MG CAP PO SCH ×2 (12:06)
[2020-10-08] MEDS: CYPROHEPTADINE 4 MG TAB PO SCH (12:06)
[2020-10-08] MEDS: METOPROLOL TARTRATE 5 MG/5 ML INJ IV SCH (12:07)
--- NOTE | 2020-10-08 14:20 | Progress Note ---
Assessment and Plan Assessment and plan: 74-year-old male with known history of hypertension, end-stage renal disease, on HD, diabetes mellitus, bilateral BKA, history of GI bleed and CVA in the past presented to the emergency room today with chief complaint of difficulty speaking for about an hour prior to arrival in the emergency room. Most of the history was gotten from the ER staff as patient is only able to mumble some words. He was also able to respond by nodding or shaking his head when asked questions. Patient was said to have had a stroke about a week ago. Upon arrival in the emergency room patient's condition improved and was able to put out some words. He was also evaluated by the tele-neurologist. He was deemed not to be a TPA candidate . CT scan of the head reveals: the presence of remote right MCA infarction and possible old left insular infarction. No indication of intracranial hemorrhage or mass He has been admitted for evaluation of possible CVA. CT head shows findings consistent with remote right MCA infarct and possible old left insular infarct. (1) CVA (cerebral vascular accident) Current Visit: Yes Status: Acute Plan to address problem: Patient will be scheduled for carotid Doppler and MRI of the brain. We will place a consult to neurology for evaluation. We will also place patient on daily aspirin and statin Monitor closely H&H has patient has a history of remote GI bleed (2) anemia Current Visit: No Status: Chronic Plan to address problem: This appears chronic. We will monitor CBC and transfuse with packed red blood cells if needed. (3) Hypertension Current Visit: No Status: Chronic Plan to address problem: We will monitor vital signs closely and resume routine home medications once reconciled. (4) Type 2 diabetes mellitus Current Visit: No Status: Chronic Plan to address problem: We will monitor Accu-Cheks closely. (5) End stage renal disease Current Visit: No Status: Chronic Plan to address problem: Will appreciate Nephrology follow up. (6) bilateral BKA Will obtain physical therapy evaluation and treat continue wound care [7] DVT prophylaxis Current Visit: Yes Status: Acute Plan to address problem: Patient currently on anticoagulation. (8) Full code status Current Visit: Yes Status: Acute History Interval history: Patient seen and examined, still expressive aphasia Hospitalist Physical - Physical exam Narrative exam: VITAL SIGNS: Reviewed. GENERAL: The patient appears normally developed, Vital signs as documented. HEAD: No signs of head trauma. EYES: Pupils are equal. Extraocular motions intact. EARS: Hearing grossly intact. MOUTH: Oropharynx is normal. NECK: No adenopathy, no JVD. CHEST: Chest with clear breath sounds bilaterally. No wheezes, rales, or rhon chi. CARDIAC: Regular rate and rhythm. S1 and S2, without murmurs, gallops, or rubs. VASCULAR: No Edema. Peripheral pulses normal and equal in all extremities. ABDOMEN: Soft, non tender and non distended. No rebound or guarding, and no masses palpated. Bowel Sounds normal. MUSCULOSKELETAL: Good range of motion of all major joints patient also noted to have (Bilateral BKA, Dressing over stump of right BKA) with cast. Extremities without clubbing, cyanosis or edema. NEUROLOGIC EXAM: Alert and oriented x 3 No focal sensory or strength deficits except for mild facial asymmetry. Speech normal. Follows commands. PSYCHIATRIC: Mood normal. SKIN: detail exam as documented in skin assessment - Constitutional Vitals: Temp Pulse Resp BP Pulse Ox 98.4 F 86 22 172/82 99 10/08/20 07:30 10/08/20 12:07 10/08/20 11:00 10/08/20 12:07 10/08/20 11:00 General appearance: Present: no acute distress, well-nourished, other (Moderate Pallor) HEART Score - HEART Score Troponin: Troponin T 0.358 ng/mL (0.00-0.029) H* 10/07/20 21:09 Results - Labs CBC & Chem 7: 10/07/20 21:09 10/07/20 21:09 Labs: Laboratory Last Values WBC 5.5 K/mm3 (4.5-11.0) 10/07/20 21:09 RBC 2.58 M/mm3 (3.65-5.03) L 10/07/20 21:09 Hgb 7.7 gm/dl (11.8-15.2) L 10/07/20 21:09 Hct 22.9 % (35.5-45.6) L 10/07/20 21:09 MCV 89 fl (84-94) 10/07/20 21:09 MCH 30 pg (28-32) 10/07/20 21: MCHC 34 % (32-34) 10/07/20 21:09 RDW 16.9 % (13.2-15.2) H 10/07/20 21:09 Plt Count 192 K/mm3 (140-440) 10/07/20 21:09 Lymph % (Auto) 15.7 % (13.4-35.0) 10/07/20 21:09 [place] % (Auto) 8.8 % (0.0-7.3) H 10/07/20 21:09 Eos % (Auto) 5.0 % (0.0-4.3) H 10/07/20 21:09 Baso % (Auto) 1.0 % (0.0-1.8) 10/07/20 21:09 Lymph # (Auto) 0.9 K/mm3 (1.2-5.4) L 10/07/20 21:09 [place] # (Auto) 0.5 K/mm3 (0.0-0.8) 10/07/20 21:09 Eos # (Auto) 0.3 K/mm3 (0.0-0.4) 10/07/20 21:09 Baso # (Auto) 0.1 K/mm3 (0.0-0.1) 10/07/20 21:09 Seg Neutrophils % 69.5 % (40.0-70.0) 10/07/20 21:09 Seg Neutrophils # 3.8 K/mm3 (1.8-7.7) 10/07/20 21:09 PT 14.8 Sec. (12.2-14.9) 10/07/20 21:09 INR 1.15 (0.87-1.13) H 10/07/20 21:09 APTT 33.0 Sec. (24.2-36.6) 10/07/20 21:09 Thrombin Time 15.0 Sec. (15.1-19.6) L 10/07/20 21:09 Sodium 137 mmol/L (137-145) 10/07/20 21:09 Potassium 3.7 mmol/L (3.6-5.0) 10/07/20 21:09 Chloride 98.9 mmol/L (98-107) 10/07/20 21:09 Carbon Dioxide 27 mmol/L (22-30) 10/07/20 21:09 Anion Gap 15 mmol/L 10/07/20 21:09 BUN 15 mg/dL (9-20) 10/07/20 21:09 Creatinine 3.4 mg/dL (0.8-1.3) H 10/07/20 21:09 Estimated GFR 22 ml/min 10/07/20 21:09 BUN/Creatinine Ratio 4 % 10/07/20 21:09 Glucose 195 mg/dL (75-100) H 10/07/20 21:09 POC Glucose 114 mg/dL (70-105) H 10/08/20 10:31 Calcium 9.7 mg/dL (8.4-10.2) 10/07/20 21:09 Troponin T 0.358 ng/mL (0.00-0.029) H* 10/07/20 21:09 Triglycerides 97 mg/dL (2-149) 10/07/20 21:09 Cholesterol 118 mg/dL (50-199) 10/07/20 21:09 LDL Cholesterol Direct 38 mg/dL (50-130) L 10/07/20 21:09 HDL Cholesterol 64 mg/dL (40-59) H 10/07/20 21:09 Cholesterol/HDL Ratio 1.84 % 10/07/20 21:09 [place]aley/IV: IV Catheter Type [Right INT / Saline Lock Antecubital] Active Medications - Current Medications Current Medications: Generic Name Dose Route Start Last Admin Trade Name Freq PRN Reason Stop Dose Admin Acetaminophen 650 mg 10/07/20 23:14 Tylenol PO Q4H PRN Pain, Mild (1-3) Amlodipine Besylate 10 mg 10/08/20 08:00 10/08/20 10:50 Amlodipine PO 10 mg DAILY@0800 [facility] Administration Apixaban 2.5 mg 10/08/20 10:00 10/08/20 10:50 Eliquis PO 2.5 mg BID [facility] Administration Protocol Aspirin 81 mg 10/08/20 10:00 10/08/20 10:40 Halfprin Ec PO 81 mg QDAY [facility] Administration Atorvastatin Calcium 40 mg 10/08/20 22:00 Lipitor PO QHS [facility] Bisacodyl 10 mg 10/07/20 23:14 Dulcolax AL QDAY PRN Constipation Calcium Acetate 667 mg 10/08/20 08:00 10/08/20 12:06 Phoslo PO 667 mg TIDWM [facility] Administration Cyproheptadine HCl 4 mg 10/08/20 10:00 10/08/20 12:06 Periactin PO 4 mg DAILY [facility] Administration Dextrose 0 ml 10/07/20 23:14 D50w (25gm) Syringe IV Q30MIN PRN Hypoglycemia Protocol Folic Acid 1 mg 10/08/20 10:00 10/08/20 10:41 Folvite PO 1 mg DAILY [facility] Administration Hydralazine HCl 100 mg 10/08/20 09:00 10/08/20 13:47 Apresoline PO 100 mg TID [facility] Administration Sodium Chloride 1,000 mls @ 75 mls/hr 10/07/20 23:15 Nacl 0.9% 1000 Ml IV DIRECT [facility] Insulin Human Lispro 0 unit 10/08/20 07:30 10/08/20 11:54 Humalog SUB-Q Not Given ACHS [facility] Protocol Lactobacillus Acidophilus 1 each 10/08/20 10:00 10/08/20 12:05 Lactinex PO 1 each QDAY [facility] Administration Losartan Potassium 25 mg 10/08/20 10:00 10/08/20 10:50 Cozaar PO 25 mg QDAY [facility] Administration Magnesium Hydroxide 30 ml 10/07/20 23:14 Milk Of Magnesia PO Q4H PRN Constipation Metoclopramide HCl 5 mg 10/07/20 23:14 Reglan PO Q6H PRN Nausea And Vomiting Metoprolol Tartrate 2.5 mg 10/08/20 12:00 10/08/20 12:07 Metoprolol IV 2.5 mg Q6HR [facility] Administration Morphine Sulfate 2 mg 10/07/20 23:14 Morphine IV Q4H PRN Pain, Moderate (4-6) Ondansetron HCl 4 mg 10/07/20 23:14 Zofran IV Q8H PRN Nausea And Vomiting Pantoprazole Sodium 40 mg 10/08/20 10:00 10/08/20 10:40 Protonix PO 40 mg QDAY [facility] Administration Promethazine HCl 25 mg 10/07/20 23:14 Phenergan AL Q6H PRN Nausea And Vomiting Sodium Chloride 10 ml 10/08/20 10:00 10/08/20 12:07 Sodium Chloride Flush Syringe 10 Ml IV 10 ml BID [facility] Administration Sodium Chloride 10 ml 10/07/20 23:14 Sodium Chloride Flush Syringe 10 Ml IV PRN PRN LINE FLUSH Nutrition/Malnutrition Assess - Dietary Evaluation Nutrition/Malnutrition Findings: Nutrition Notes Start: 10/08/20 13:04 Freq: Status: Active Protocol: Document 10/08/20 13:05 AYE (Rec: 10/08/20 13:12 AYE [email or web address]) Nutrition Notes Need for Assessment generated from: MD Order Initial or Follow up Assessment Current Diagnosis CKD (stage V CKD),Diabetes, Hypertension,Stroke, Hyperlipidemia Other Pertinent Diagnosis CVA Current Diet NPO Labs/Tests Reviewed Pertinent Medications Phoslo, Periactin, Folic acid, Lactinex, NS at 75ml/hr Height 5 ft 7 in Weight 76.249 kg [place] Body Weight (kg) 67.27 BMI 26.3 Weight Status Appropriate Subjective/Other Information RD consulted for diet education and NTR recommendations. Pt in ED at this time. [employer] evaluation ordered. Burn Absent Trauma Absent Minimum of two criteria No #1 Nutrition Diagnosis Inadequate oral intake Etiology recent CVA As Evidenced by Signs and Symptoms pt NPO; awaiting [employer] evaluation Is patient on ventilator? No Is Patient Ambulatory and/or Out of Bed No REE-([place]-St. Jeor-confined to bed) 4310.533 Calculation [facility] Additional Notes Pro needs >1.2g/kg: >91g/day Fluid needs 1-1.5L/day Nutrition Intervention Change Diet Order: Diet advancement to renal/ Consistent CHO when medically feasible Goal #1 Diet advancement to meet nutrient needs Anticipated Discharge Needs: Renal/CHO-controlled diet Follow-Up By: 10/10/20 Additional Comments F/U: diet advancement, diet education needs
--- NOTE | 2020-10-08 14:38 | Consultation ---
History of Present Illness - Reason for Consult Consult date: 10/08/20 end stage renal disease - History of Present Illness Mr. Cordero is a 74yo with ESRD on HD TTS who presents to the ED with change in mental status. He reports that on Friday am he was in usual state of health. He went to dialysis and completed his treatment which was uneventful. He reports that he was awakened from sleep by his later that afternoon and was unable to speak. EMS was called and patient was transported to the ED. Past History Past Medical History: atrial fib, diabetes, GERD, hypertension, hyperlipidemia, stroke, other (GI bleed) Past Surgical History: No surgical history Social history: no significant social history Family history: no significant family history Medications and Allergies Allergies Allergy/AdvReac Type Severity Reaction Status Date / Time minoxidil Allergy Severe Angioedema Verified 07/30/13 01:36 Home Medications Medication Instructions Recorded Confirmed Last Taken Type Glimepiride [Amaryl] 1 mg PO QAM #30 tablet 08/09/13 10/07/20 1 Day Ago Rx ~10/06/20 Pantoprazole [Protonix] 40 mg PO QDAY #30 tablet 08/09/13 10/07/20 1 Day Ago Rx ~10/06/20 Apixaban [Eliquis] 2.5 mg PO BID 10/07/20 10/07/20 1 Day Ago History ~10/06/20 AtorvaSTATin [Lipitor] 40 mg PO QHS 10/07/20 10/07/20 1 Day Ago History ~10/06/20 Calcium Acetate [Phoslo] 667 mg PO TID 10/07/20 10/07/20 1 Day Ago History ~10/06/20 Cyproheptadine 4 mg PO DAILY 10/07/20 10/07/20 Unknown History Folic Acid 1 mg PO DAILY 10/07/20 10/07/20 1 Day Ago History ~10/06/20 L. Acidophilus/Bifid. Animalis 1 each PO DAILY 10/07/20 10/07/20 Unknown History [Dialyvite Chewable Probiotic] Losartan [Cozaar] 25 mg PO QDAY 10/07/20 10/07/20 1 Day Ago History ~10/06/20 Metoprolol [Lopressor TAB] 50 mg PO BID 10/07/20 10/07/20 1 Day Ago History ~10/06/20 Vancomycin 1,250 mg/12.5 ml Vl 125 mg PO DAILY 10/07/20 10/07/20 1 Day Ago History ~10/06/20 amLODIPine [Norvasc] 10 mg PO DAILY 10/07/20 10/07/20 1 Day Ago History ~10/06/20 Active Meds: Active Medications Acetaminophen (Tylenol) 650 mg PO Q4H PRN PRN Reason: Pain, Mild (1-3) Amlodipine Besylate (Amlodipine) 10 mg PO DAILY@0800 [facility] Last Admin: 10/08/20 10:50 Dose: 10 mg Documented by: Apixaban (Eliquis) 2.5 mg PO BID [facility]; Protocol Last Admin: 10/08/20 10:50 Dose: 2.5 mg Documented by: Aspirin (Halfprin Ec) 81 mg PO QDAY [facility] Last Admin: 10/08/20 10:40 Dose: 81 mg Documented by: Atorvastatin Calcium (Lipitor) 40 mg PO QHS [facility] Bisacodyl (Dulcolax) 10 mg AR QDAY PRN PRN Reason: Constipation Calcium Acetate (Phoslo) 667 mg PO TIDWM [facility] Last Admin: 10/08/20 12:06 Dose: 667 mg Documented by: Cyproheptadine HCl (Periactin) 4 mg PO DAILY [facility] Last Admin: 10/08/20 12:06 Dose: 4 mg Documented by: Dextrose (D50w (25gm) Syringe) 0 ml IV Q30MIN PRN; Protocol PRN Reason: Hypoglycemia Folic Acid (Folvite) 1 mg PO DAILY [facility] Last Admin: 10/08/20 10:41 Dose: 1 mg Documented by: Hydralazine HCl (Apresoline) 100 mg PO TID [facility] Last Admin: 10/08/20 13:47 Dose: 100 mg Documented by: Sodium Chloride (Nacl 0.9% 1000 Ml) 1,000 mls @ 75 mls/hr IV DIRECT [facility] Insulin Human Lispro (Humalog) 0 unit SUB-Q ACHS [facility]; Protocol Last Admin: 10/08/20 11:54 Dose: Not Given Documented by: Lactobacillus Acidophilus (Lactinex) 1 each PO QDAY [facility] Last Admin: 10/08/20 12:05 Dose: 1 each Documented by: Losartan Potassium (Cozaar) 25 mg PO QDAY [facility] Last Admin: 10/08/20 10:50 Dose: 25 mg Documented by: Magnesium Hydroxide (Milk Of Magnesia) 30 ml PO Q4H PRN PRN Reason: Constipation Metoclopramide HCl (Reglan) 5 mg PO Q6H PRN PRN Reason: Nausea And Vomiting Metoprolol Tartrate (Metoprolol) 2.5 mg IV Q6HR [facility] Last Admin: 10/08/20 12:07 Dose: 2.5 mg Documented by: Morphine Sulfate (Morphine) 2 mg IV Q4H PRN PRN Reason: Pain, Moderate (4-6) Ondansetron HCl (Zofran) 4 mg IV Q8H PRN PRN Reason: Nausea And Vomiting Pantoprazole Sodium (Protonix) 40 mg PO QDAY [facility] Last Admin: 10/08/20 10:40 Dose: 40 mg Documented by: Promethazine HCl (Phenergan) 25 mg AR Q6H PRN PRN Reason: Nausea And Vomiting Sodium Chloride (Sodium Chloride Flush Syringe 10 Ml) 10 ml IV BID [facility] Last Admin: 10/08/20 12:07 Dose: 10 ml Documented by: Sodium Chloride (Sodium Chloride Flush Syringe 10 Ml) 10 ml IV PRN PRN PRN Reason: LINE FLUSH Review of Systems All systems: negative Exam - Vital Signs Vital signs: Vital Signs Pulse Resp BP Pulse Ox 83 12 171/83 99 10/07/20 21:46 10/07/20 21:46 10/07/20 21:46 10/07/20 21:46 - General Appearance General appearance: well-developed, well-nourished EENT: ATNC Respiratory: Clear to Ascultation Heart: regular, S1S2 Gastrointestinal: Present: other (PD cathter in place). Absent: normal, tenderness, distended Integumentary: no rash, warm and dry Neurologic: other (slurred speech) Musculoskeletal: Present: other (Bilateral BKA) Psychiatric: cooperative Results - Lab Results 10/07/20 21:09 10/07/20 21:09 Most recent lab results Calcium 9.7 mg/dL (8.4-10.2) 10/07/20 21:09 Assessment and Plan Impression * End stage renal disease * Acute CVA * Atrial fibrillation * Peripheral artery disease * Anemia secondary to ESRD * Secondary hyperparathyroidism Plan * No acute need for hemodialysis today * Will continue HD TTS schedule * Neurology recommendations reviewed * Transfuse pRBC prn * Epogen TIW * Renal diet * Dose medications for renal function
[2020-10-08] MEDS ORDERED: EPOETIN ALFA 20,000 UNIT/1 ML INJ IV PRN (19:53)
[2020-10-08] MEDS ORDERED: SODIUM CHLORIDE 0.9% 100 ML IV PRN (19:53)
--- NOTE | 2020-10-08 21:20 | Consultation ---
REFERRING PHYSICIAN: Hospitalist service. HISTORY OF PRESENT ILLNESS: The patient known to me in the office. He is a pleasant 74-year-old -[place] gentleman with history of recent CVA and GI bleed, CKD, left leg amputation, presents with aphasia and acute ischemic stroke. Was seen by Neurology, deemed not a candidate for thrombectomy. He is seen in the Emergency Room, room #1. He is communicative, but with slurred speech. PAST MEDICAL HISTORY: As aforementioned. PHYSICAL EXAMINATION: VITAL SIGNS: Blood pressure is 180/90. He is afebrile. Tele reveals AFib with controlled ventricular response. HEENT: Sclerae are anicteric. PERRL. NECK: Supple, no masses. CHEST: Clear to auscultation bilaterally. Good air movement. CARDIOVASCULAR: Irregularly irregular with controlled ventricular response. ABDOMEN: Soft, nontender, nondistended. Normoactive bowel sounds in all 4 quadrants. EXTREMITIES: No cyanosis, clubbing, edema. Good peripheral pulses. SKIN: Intact. No rashes. LABORATORY DATA: CT shows no evidence of intracranial stenosis or large vessel occlusion, remote right MCA infarction and possible left inferior infarction noted. No intracranial hemorrhage or mass. EKG reveals AFib with CVR. Mild elevation of troponin of 0.35, creatinine is 3.4. WBC is 5.5, hemoglobin 7.7, hematocrit 22.9, platelets 192. ASSESSMENT AND PLAN: In summary, the patient is a pleasant 74-year-old -[place] gentleman. 1. Acute ischemic stroke with dysphagia. 2. Recent cerebrovascular accident. 3. Recent gastrointestinal bleed. 4. History of end-stage renal disease, on hemodialysis. 5. History of atrial fibrillation, on long-term systemic anticoagulation. 6. Peripheral vascular disease with left leg amputation. 7. Anemia, likely multifactorial, recent gastrointestinal bleed and anemia of chronic disease. 8. Hypertension. 9. Diabetes. PLAN: At this point, we will recheck echocardiogram. Add IV. The patient is not taking p.o. medications obviously due to stroke. We will add IV beta blockade. Watch blood pressure. Obviously no Eliquis due to n.p.o. status as well. Consider IV heparin when okay from a neurologic standpoint given recent CVA and risk of hemorrhagic conversion. MRI is pending today. I will follow along. Thank you for this consultation. [facility]# [id number] SBM/NTS
[2020-10-09] MEDS: METOPROLOL TARTRATE 5 MG/5 ML INJ IV SCH ×2 (00:45→05:37)
[2020-10-09 06:19] LABS: Hematocrit 23.6 % (35.5-45.6); Hemoglobin 7.7 gm/dl (11.8-15.2); Mean Corpuscular HGB Conc 33 % (32-34); Mean Corpuscular Volume 90 fl (84-94); Platelet Count 206 K/mm3 (140-440); Red Blood Count 2.63 M/mm3 (3.65-5.03); Red Cell Distribution Width 17.5 % (13.2-15.2)
[2020-10-09 06:36] LABS: Calcium 10.5 mg/dL (8.4-10.2)
--- NOTE | 2020-10-09 10:26 | Progress Note ---
Assessment and Plan Impression * End stage renal disease * Acute CVA * Atrial fibrillation * Peripheral artery disease * Anemia secondary to ESRD * Secondary hyperparathyroidism Plan * Will continue HD TTS schedule * Neurology recommendations reviewed * Transfuse pRBC prn * Epogen TIW * Renal diet * Dose medications for renal function Subjective Date of service: 10/09/20 Principal diagnosis: esrd Interval history: resting in bed today Objective - Exam Narrative Exam: General appearance: well-developed, well-nourished EENT: ATNC Respiratory: Clear to Ascultation Heart: regular, S1S2 Gastrointestinal: Present: other (PD cathter in place). Absent: normal, tenderness, distended Integumentary: no rash, warm and dry Neurologic: other (slurred speech) Musculoskeletal: Present: other (Bilateral BKA) Psychiatric: cooperative - Vital Signs Vital signs: Vital Signs - 12hr 10/08/20 10/08/20 10/09/20 23:13 23:15 00:45 Temperature 99.3 F Pulse Rate 114 H 118 H Respiratory 17 Rate Blood Pressure 141/83 141/83 O2 Sat by Pulse 97 95 Oximetry 10/09/20 10/09/20 10/09/20 01:26 03:30 05:37 Temperature 98.1 F Pulse Rate 120 H 100 H 115 H Respiratory 18 Rate Blood Pressure 136/75 136/83 O2 Sat by Pulse 100 Oximetry - Lab 10/09/20 04:18 10/09/20 04:18 Most recent lab results Calcium 10.5 mg/dL (8.4-10.2) H 10/09/20 04:18 Medications & Allergies - Medications Allergies/Adverse Reactions: Allergies minoxidil Allergy (Severe, Verified 07/30/13 01:36) Angioedema Home Medications: Home Medications Medication Instructions Recorded Confirmed Last Taken Type Glimepiride [Amaryl] 1 mg PO QAM #30 tablet 08/09/13 10/07/20 1 Day Ago Rx ~10/06/20 Pantoprazole [Protonix] 40 mg PO QDAY #30 tablet 08/09/13 10/07/20 1 Day Ago Rx ~10/06/20 Apixaban [Eliquis] 2.5 mg PO BID 10/07/20 10/07/20 1 Day Ago History ~10/06/20 AtorvaSTATin [Lipitor] 40 mg PO QHS 10/07/20 10/07/20 1 Day Ago History ~10/06/20 Calcium Acetate [Phoslo] 667 mg PO TID 10/07/20 10/07/20 1 Day Ago History ~10/06/20 Cyproheptadine 4 mg PO DAILY 10/07/20 10/07/20 Unknown History Folic Acid 1 mg PO DAILY 10/07/20 10/07/20 1 Day Ago History ~10/06/20 L. Acidophilus/Bifid. Animalis 1 each PO DAILY 10/07/20 10/07/20 Unknown History [Dialyvite Chewable Probiotic] Losartan [Cozaar] 25 mg PO QDAY 10/07/20 10/07/20 1 Day Ago History ~10/06/20 Metoprolol [Lopressor TAB] 50 mg PO BID 10/07/20 10/07/20 1 Day Ago History ~10/06/20 Vancomycin 1,250 mg/12.5 ml Vl 125 mg PO DAILY 10/07/20 10/07/20 1 Day Ago History ~10/06/20 amLODIPine [Norvasc] 10 mg PO DAILY 10/07/20 10/07/20 1 Day Ago History ~10/06/20 Active Medications: Generic Name Dose Route Start Last Admin Trade Name Freq PRN Reason Stop Dose Admin Acetaminophen 650 mg 10/07/20 23:14 Tylenol PO Q4H PRN Pain, Mild (1-3) Amlodipine Besylate 10 mg 10/08/20 08:00 10/08/20 10:50 Amlodipine PO 10 mg DAILY@0800 [facility] Administration Aspirin 81 mg 10/08/20 10:00 10/08/20 10:40 Halfprin Ec PO 81 mg QDAY [facility] Administration Atorvastatin Calcium 40 mg 10/08/20 22:00 10/08/20 21:40 Lipitor PO 40 mg QHS [facility] Administration Bisacodyl 10 mg 10/07/20 23:14 Dulcolax [place] QDAY PRN Constipation Calcium Acetate 667 mg 10/08/20 08:00 10/08/20 12:06 Phoslo PO 667 mg TIDWM [facility] Administration Cyproheptadine HCl 4 mg 10/08/20 10:00 10/08/20 12:06 Periactin PO 4 mg DAILY [facility] Administration Dextrose 0 ml 10/07/20 23:14 D50w (25gm) Syringe IV Q30MIN PRN Hypoglycemia Protocol Epoetin Theron 20,000 unit 10/08/20 19:53 Procrit IV BRYAN PRN hemodialysis Ferrous Sulfate 325 mg 10/09/20 10:00 Feosol PO BID [facility] Folic Acid 1 mg 10/08/20 10:00 10/08/20 10:41 Folvite PO 1 mg DAILY [facility] Administration Hydralazine HCl 100 mg 10/08/20 09:00 10/08/20 21:40 Apresoline PO 100 mg TID [facility] Administration Sodium Chloride 1,000 mls @ 75 mls/hr 10/07/20 23:15 Nacl 0.9% 1000 Ml IV DIRECT [facility] Sodium Chloride 100 mls @ 999 mls/hr 10/08/20 19:53 Nacl 0.9% IV BRYAN PRN Hypotension Insulin Human Lispro 0 unit 10/08/20 07:30 10/08/20 21:40 Humalog SUB-Q Not Given ACHS [facility] Protocol Lactobacillus Acidophilus 1 each 10/08/20 10:00 10/08/20 12:05 Lactinex PO 1 each QDAY [facility] Administration Losartan Potassium 25 mg 10/08/20 10:00 10/08/20 10:50 Cozaar PO 25 mg QDAY [facility] Administration Magnesium Hydroxide 30 ml 10/07/20 23:14 Milk Of Magnesia PO Q4H PRN Constipation Metoclopramide HCl 5 mg 10/07/20 23:14 Reglan PO Q6H PRN Nausea And Vomiting Metoprolol Tartrate 2.5 mg 10/08/20 12:00 10/09/20 05:37 Metoprolol IV 2.5 mg Q6HR [facility] Administration Morphine Sulfate 2 mg 10/07/20 23:14 Morphine IV Q4H PRN Pain, Moderate (4-6) Ondansetron HCl 4 mg 10/07/20 23:14 Zofran IV Q8H PRN Nausea And Vomiting Pantoprazole Sodium 40 mg 10/08/20 10:00 10/08/20 10:40 Protonix PO 40 mg QDAY [facility] Administration Promethazine HCl 25 mg 10/07/20 23:14 Phenergan [place] Q6H PRN Nausea And Vomiting Sodium Chloride 10 ml 10/08/20 10:00 10/08/20 21:40 Sodium Chloride Flush Syringe 10 Ml IV 10 ml BID [facility] Administration Sodium Chloride 10 ml 10/07/20 23:14 Sodium Chloride Flush Syringe 10 Ml IV PRN PRN LINE FLUSH
[2020-10-09] MEDS: INSULIN LISPRO 100 UNIT/ML VIAL 3 mL SUB-Q SCH ×3 (10:39→22:46)
--- NOTE | 2020-10-09 11:13 | Progress Note ---
Assessment and Plan tele reviewed - in AFib HR mostly 90s with intermittent bouts of RVR HR 120s noted overnight, isolated PVCs. Pt's diet has been advanced to regular diet with thin liquids per speech therapy. Optimize HR - convert IV lopressor to PO lopressor and titrate as tolerated, d/c hydralazine. Neuro w/u in progress. Pt underwent brain MRI today, results pending. Cont to hold home Eliquis pending neuro w/u. Recommend resumption of systemic AC if/when ok per neurology team. Await echo. Will follow. The patient has been seen in conjunction with Dr. Navarro who agrees with the assessment and plan of care. - Patient Problems (1) Atrial fibrillation Current Visit: Yes Status: Acute (2) CVA (cerebral vascular accident) Current Visit: Yes Status: Suspected (3) History of CVA (cerebrovascular accident) Current Visit: Yes Status: Chronic (4) ESRD on dialysis Current Visit: Yes Status: Chronic (5) Anemia Current Visit: Yes Status: Chronic (6) History of GI bleed Current Visit: Yes Status: Chronic (7) PVD (peripheral vascular disease) Current Visit: Yes Status: Chronic (8) History of leg amputation Current Visit: Yes Status: Chronic (9) Hypertension Current Visit: Yes Status: Chronic (10) Diabetes Current Visit: Yes Status: Chronic (11) NSTEMI (non-ST elevated myocardial infarction) Current Visit: Yes Status: Acute Plan to address problem: suspect type II Subjective Date of service: 10/09/20 Principal diagnosis: esrd Interval history: pt resting in bed, no current cardiac complaints. tele reviewed - in AFib HR mostly 90s with intermittent bouts of RVR HR 120s noted overnight, isolated PVCs. Objective Vital Signs Temp Pulse Resp BP Pulse Ox 10/09/20 07:17 98.1 F 96 H 20 150/86 100 10/09/20 05:37 115 H 136/83 10/09/20 03:30 98.1 F 100 H 18 136/75 100 10/09/20 01:26 120 H 10/09/20 00:45 118 H 141/83 10/08/20 23:15 99.3 F 114 H 17 141/83 95 10/08/20 23:13 97 10/08/20 19:12 98.4 F 103 H 18 149/82 95 10/08/20 17:00 102 H 16 143/87 10/08/20 16:00 98.4 F 87 21 142/87 98 10/08/20 15:01 93 H 24 145/81 97 10/08/20 14:00 157/96 10/08/20 13:00 90 25 H 164/92 10/08/20 12:07 86 172/82 10/08/20 12:00 92 H 14 172/82 98 - Labs and Meds CBC 10/09/20 Range/Units 04:18 WBC 8.2 (4.5-11.0) K/mm3 RBC 2.63 L (3.65-5.03) M/mm3 Hgb 7.7 L (11.8-15.2) gm/dl Hct 23.6 L (35.5-45.6) % Plt Count 206 (140-440) K/mm3 Comprehensive Metabolic Panel 10/09/20 Range/Units 04:18 Sodium 139 (137-145) mmol/L Potassium 3.7 (3.6-5.0) mmol/L Chloride 99.9 (98-107) mmol/L Carbon Dioxide 26 (22-30) mmol/L BUN 32 H (9-20) mg/dL Creatinine 6.0 H D (0.8-1.3) mg/dL Glucose 146 H (75-100) mg/dL Calcium 10.5 H (8.4-10.2) mg/dL
--- NOTE | 2020-10-09 11:22 | Progress Note ---
Assessment and Plan Assessment and plan: 74-year-old male with known history of hypertension, end-stage renal disease, on HD, diabetes mellitus, bilateral BKA, history of GI bleed and CVA in the past presented to the emergency room today with chief complaint of difficulty speaking for about an hour prior to arrival in the emergency room. Most of the history was gotten from the ER staff as patient is only able to mumble some words. He was also able to respond by nodding or shaking his head when asked questions. Patient was said to have had a stroke about a week ago. Upon arrival in the emergency room patient's condition improved and was able to put out some words. He was also evaluated by the tele-neurologist. He was deemed not to be a TPA candidate . CT scan of the head reveals: the presence of remote right MCA infarction and possible old left insular infarction. No indication of intracranial hemorrhage or mass He has been admitted for evaluation of possible CVA. CT head shows findings consistent with remote right MCA infarct and possible old left insular infarct. MRI pending 10/09: Discussed with the who informs me that the patient had a recent episode of GI bleed. And her primary doctors recommended iron sulfate. I do not have full data to display she also tells me that his hemoglobin was 13 prior to the GI bleed hospitalization. We will try to obtain records as patient is on anticoagulation therapy with Eliquis. We will start the patient on iron supplements. Nephrology is following awaiting for continued hemodialysis. I have updated the . Will obtain speech therapy. Also monitors hemoglobin closely. (1) CVA (cerebral vascular accident) with expressive aphasia Current Visit: Yes Status: Acute Plan to address problem: Patient will be scheduled for carotid Doppler and MRI of the brain. We will place a consult to neurology for evaluation. We will also place patient on daily aspirin and statin Monitor closely H&H has patient has a history of remote GI bleed (2) anemia of chronic disease with history of recent GI bleed Current Visit: No Status: Chronic Plan to address problem: This appears chronic. We will monitor CBC and transfuse with packed red blood cells if needed. (3) Hypertension Current Visit: No Status: Chronic Plan to address problem: We will monitor vital signs closely and resume routine home medications once reconciled. (4) Type 2 diabetes mellitus Current Visit: No Status: Chronic Plan to address problem: We will monitor Accu-Cheks closely. (5) End stage renal disease Current Visit: No Status: Chronic Plan to address problem: Will appreciate Nephrology follow up. (6) bilateral BKA Will obtain physical therapy evaluation and treat continue wound care We will also obtain wound care [7] DVT prophylaxis Current Visit: Yes Status: Acute Plan to address problem: Patient currently on anticoagulation. (8) Full code status Current Visit: Yes Status: Acute History Interval history: Patient seen and examined, still expressive aphasia otherwise no other acute issues reported overnight. Hospitalist Physical - Physical exam Narrative exam: VITAL SIGNS: Reviewed. GENERAL: The patient appears normally developed, Vital signs as documented. HEAD: No signs of head trauma. EYES: Pupils are equal. Extraocular motions intact. EARS: Hearing grossly intact. MOUTH: Oropharynx is normal. NECK: No adenopathy, no JVD. CHEST: Chest with clear breath sounds bilaterally. No wheezes, rales, or rhonchi. CARDIAC: Regular rate and rhythm. S1 and S2, without murmurs, gallops, or rubs. VASCULAR: No Edema. Peripheral pulses normal and equal in all extremities. ABDOMEN: Soft, non tender and non distended. No rebound or guarding, and no masses palpated. Bowel Sounds normal. MUSCULOSKELETAL: Good range of motion of all major joints patient also noted to have (Bilateral BKA, Dressing over stump of right BKA) with cast. Extremities without clubbing, cyanosis or edema. NEUROLOGIC EXAM: Alert and oriented x 3 No focal sensory or strength deficits except for mild facial asymmetry. Expressive aphasia. Follows commands. PSYCHIATRIC: Mood normal. SKIN: detail exam as documented in skin assessment - Constitutional Vitals: Temp Pulse Resp BP Pulse Ox 98.1 F 96 H 20 150/86 100 10/09/20 07:17 10/09/20 07:17 10/09/20 07:17 10/09/20 07:17 10/09/20 07:17 General appearance: Present: no acute distress, well-nourished, other (Moderate Pallor) HEART Score - HEART Score Troponin: Troponin T 0.358 ng/mL (0.00-0.029) H* 10/07/20 21:09 Results - Labs CBC & Chem 7: 10/09/20 04:18 10/09/20 04:18 Labs: Laboratory Last Values WBC 8.2 K/mm3 (4.5-11.0) 10/09/20 04:18 RBC 2.63 M/mm3 (3.65-5.03) L 10/09/20 04:18 Hgb 7.7 gm/dl (11.8-15.2) L 10/09/20 04:18 Hct 23.6 % (35.5-45.6) L 10/09/20 04:18 MCV 90 fl (84-94) 10/09/20 04:18 MCH 29 pg (28-32) 10/09/20 04:18 MCHC 33 % (32-34) 10/09/20 04:18 RDW 17.5 % (13.2-15.2) H 10/09/20 04:18 Plt Count 206 K/mm3 (140-440) 10/09/20 04:18 Lymph % (Auto) 15.7 % (13.4-35.0) 10/07/20 21:09 [place] % (Auto) 8.8 % (0.0-7.3) H 10/07/20 21:09 Eos % (Auto) 5.0 % (0.0-4.3) H 10/07/20 21:09 Baso % (Auto) 1.0 % (0.0-1.8) 10/07/20 21:09 Lymph # (Auto) 0.9 K/mm3 (1.2-5.4) L 10/07/20 21:09 [place] # (Auto) 0.5 K/mm3 (0.0-0.8) 10/07/20 21:09 Eos # (Auto) 0.3 K/mm3 (0.0-0.4) 10/07/20 21:09 Baso # (Auto) 0.1 K/mm3 (0.0-0.1) 10/07/20 21:09 Seg Neutrophils % 69.5 % (40.0-70.0) 10/07/20 21:09 Seg Neutrophils # 3.8 K/mm3 (1.8-7.7) 10/07/20 21:09 PT 14.8 Sec. (12.2-14.9) 10/07/20 21:09 INR 1.15 (0.87-1.13) H 10/07/20 21:09 APTT 33.0 Sec. (24.2-36.6) 10/07/20 21:09 Thrombin Time 15.0 Sec. (15.1-19.6) L 10/07/20 21:09 Sodium 139 mmol/L (137-145) 10/09/20 04:18 Potassium 3.7 mmol/L (3.6-5.0) 10/09/20 04:18 Chloride 99.9 mmol/L (98-107) 10/09/20 04:18 Carbon Dioxide 26 mmol/L (22-30) 10/09/20 04:18 Anion Gap 17 mmol/L 10/09/20 04:18 BUN 32 mg/dL (9-20) H 10/09/20 04:18 Creatinine 6.0 mg/dL (0.8-1.3) H D 10/09/20 04:18 Estimated GFR 11 ml/min 10/09/20 04:18 BUN/Creatinine Ratio 5 % 10/09/20 04:18 Glucose 146 mg/dL (75-100) H 10/09/20 04:18 POC Glucose 146 mg/dL (70-105) H 10/09/20 07:31 Calcium 10.5 mg/dL (8.4-10.2) H 10/09/20 04:18 Troponin T 0.358 ng/mL (0.00-0.029) H* 10/07/20 21:09 Triglycerides 97 mg/dL (2-149) 10/07/20 21:09 Cholesterol 118 mg/dL (50-199) 10/07/20 21:09 LDL Cholesterol Direct 38 mg/dL (50-130) L 10/07/20 21:09 HDL Cholesterol 64 mg/dL (40-59) H 10/07/20 21:09 Cholesterol/HDL Ratio 1.84 % 10/07/20 21:09 Whaley/IV: IV Catheter Type [Right INT / Saline Lock Antecubital] Active Medications - Current Medications Current Medications: Generic Name Dose Route Start Last Admin Trade Name Freq PRN Reason Stop Dose Admin Acetaminophen 650 mg 10/07/20 23:14 Tylenol PO Q4H PRN Pain, Mild (1-3) Amlodipine Besylate 10 mg 10/08/20 08:00 10/08/20 10:50 Amlodipine PO 10 mg DAILY@0800 FRANCOIS Administration Aspirin 81 mg 10/08/20 10:00 10/08/20 10:40 Halfprin Ec PO 81 mg QDAY FRANCOIS Administration Atorvastatin Calcium 40 mg 10/08/20 22:00 10/08/20 21:40 Lipitor PO 40 mg QHS FRANCOIS Administration Bisacodyl 10 mg 10/07/20 23:14 Dulcolax NE QDAY PRN Constipation Calcium Acetate 667 mg 10/08/20 08:00 10/08/20 12:06 Phoslo PO 667 mg TIDWM FRANCOIS Administration Cyproheptadine HCl 4 mg 10/08/20 10:00 10/08/20 12:06 Periactin PO 4 mg DAILY FRANCOIS Administration Dextrose 0 ml 10/07/20 23:14 D50w (25gm) Syringe IV Q30MIN PRN Hypoglycemia Protocol Epoetin Theron 20,000 unit 10/08/20 19:53 Procrit IV BRYAN PRN hemodialysis Ferrous Sulfate 325 mg 10/09/20 10:00 Feosol PO BID [facility] Folic Acid 1 mg 10/08/20 10:00 10/08/20 10:41 Folvite PO 1 mg DAILY [facility] Administration Hydralazine HCl 100 mg 10/08/20 09:00 10/08/20 21:40 Apresoline PO 100 mg TID [facility] Administration Sodium Chloride 1,000 mls @ 75 mls/hr 10/07/20 23:15 Nacl 0.9% 1000 Ml IV DIRECT [facility] Sodium Chloride 100 mls @ 999 mls/hr 10/08/20 19:53 Nacl 0.9% IV BRYAN PRN Hypotension Insulin Human Lispro 0 unit 10/08/20 07:30 10/09/20 10:39 Humalog SUB-Q Not Given ACHS [facility] Protocol Lactobacillus Acidophilus 1 each 10/08/20 10:00 10/08/20 12:05 Lactinex PO 1 each QDAY [facility] Administration Losartan Potassium 25 mg 10/08/20 10:00 10/08/20 10:50 Cozaar PO 25 mg QDAY [facility] Administration Magnesium Hydroxide 30 ml 10/07/20 23:14 Milk Of Magnesia PO Q4H PRN Constipation Metoclopramide HCl 5 mg 10/07/20 23:14 Reglan PO Q6H PRN Nausea And Vomiting Metoprolol Tartrate 2.5 mg 10/08/20 12:00 10/09/20 05:37 Metoprolol IV 2.5 mg Q6HR FRANCOIS Administration Morphine Sulfate 2 mg 10/07/20 23:14 Morphine IV Q4H PRN Pain, Moderate (4-6) Ondansetron HCl 4 mg 10/07/20 23:14 Zofran IV Q8H PRN Nausea And Vomiting Pantoprazole Sodium 40 mg 10/08/20 10:00 10/08/20 10:40 Protonix PO 40 mg QDAY FRANCOIS Administration Promethazine HCl 25 mg 10/07/20 23:14 Phenergan NE Q6H PRN Nausea And Vomiting Sodium Chloride 10 ml 10/08/20 10:00 10/08/20 21:40 Sodium Chloride Flush Syringe 10 Ml IV 10 ml BID FRANCOIS Administration Sodium Chloride 10 ml 10/07/20 23:14 Sodium Chloride Flush Syringe 10 Ml IV PRN PRN LINE FLUSH Nutrition/Malnutrition Assess - Dietary Evaluation Nutrition/Malnutrition Findings: Nutrition Notes Start: 10/08/20 13:04 Freq: Status: Active Protocol: Document 10/08/20 13:05 AYE (Rec: 10/08/20 13:12 [facility] SRW- [id number]) Nutrition Notes Need for Assessment generated from: MD Order Initial or Follow up Assessment Current Diagnosis CKD (stage V CKD),Diabetes, Hypertension,Stroke, Hyperlipidemia Other Pertinent Diagnosis CVA Current Diet NPO Labs/Tests Reviewed Pertinent Medications Phoslo, Periactin, Folic acid, Lactinex, NS at 75ml/hr Height 5 ft 7 in Weight 76.249 kg [place] Body Weight (kg) 67.27 BMI 26.3 Weight Status Appropriate Subjective/Other Information RD consulted for diet education and NTR recommendations. Pt in ED at this time. [employer] evaluation ordered. Burn Absent Trauma Absent Minimum of two criteria No #1 Nutrition Diagnosis Inadequate oral intake Etiology recent CVA As Evidenced by Signs and Symptoms pt NPO; awaiting [employer] evaluation Is patient on ventilator? No Is Patient Ambulatory and/or Out of Bed No REE-([facility]-confined to bed) [phone] Calculation Used for Recommendations [facility] Additional Notes Pro needs >1.2g/kg: >91g/day Fluid needs 1-1.5L/day Nutrition Intervention Change Diet Order: Diet advancement to renal/ Consistent CHO when medically feasible Goal #1 Diet advancement to meet nutrient needs Anticipated Discharge Needs: Renal/CHO-controlled diet Follow-Up By: 10/10/20 Additional Comments F/U: diet advancement, diet education needs
[2020-10-09] MEDS: CALCIUM ACETATE 667 MG CAP PO SCH ×3 (11:44→16:14)
--- NOTE | 2020-10-09 11:51 | Consultation ---
History of Present Illness Consult date: 10/09/20 Reason for Consult: Stroke Chief complaint: Difficulty w/ speech History of present illness: 74 yo male with afib, htn, dm, hld, gerd, GI bleed, 09/30/2020 CVA (acute ischemic stroke), bilateral BKA who presented to the ED w/ acute onset of difficulty w/ speech and getting words out. Evaluted by telestroke and no IV-tPA given. CTA Head/Neck were negative for a LVO. Patient notes that his speech has improved since the initial event but notes continued left arm weakness. Notes a previous cva that had affected the right side of his body. Past History Past Medical History: atrial fib, diabetes, GERD, hypertension, hyperlipidemia, stroke, other (GI bleed) Past Surgical History: No surgical history Social history: no significant social history Family history: no significant family history Medications and Allergies Allergies Allergy/AdvReac Type Severity Reaction Status Date / Time minoxidil Allergy Severe Angioedema Verified 07/30/13 01:36 Home Medications Medication Instructions Recorded Confirmed Last Taken Type Glimepiride [Amaryl] 1 mg PO QAM #30 tablet 08/09/13 10/07/20 1 Day Ago Rx ~10/06/20 Pantoprazole [Protonix] 40 mg PO QDAY #30 tablet 08/09/13 10/07/20 1 Day Ago Rx ~10/06/20 Apixaban [Eliquis] 2.5 mg PO BID 10/07/20 10/07/20 1 Day Ago History ~10/06/20 AtorvaSTATin [Lipitor] 40 mg PO QHS 10/07/20 10/07/20 1 Day Ago History ~10/06/20 Calcium Acetate [Phoslo] 667 mg PO TID 10/07/20 10/07/20 1 Day Ago History ~10/06/20 Cyproheptadine 4 mg PO DAILY 10/07/20 10/07/20 Unknown History Folic Acid 1 mg PO DAILY 10/07/20 10/07/20 1 Day Ago History ~10/06/20 L. Acidophilus/Bifid. Animalis 1 each PO DAILY 10/07/20 10/07/20 Unknown History [Dialyvite Chewable Probiotic] Losartan [Cozaar] 25 mg PO QDAY 10/07/20 10/07/20 1 Day Ago History ~10/06/20 Metoprolol [Lopressor TAB] 50 mg PO BID 10/07/20 10/07/20 1 Day Ago History ~10/06/20 Vancomycin 1,250 mg/12.5 ml Vl 125 mg PO DAILY 10/07/20 10/07/20 1 Day Ago History ~10/06/20 amLODIPine [Norvasc] 10 mg PO DAILY 10/07/20 10/07/20 1 Day Ago History ~10/06/20 Active Meds: Active Medications Acetaminophen (Tylenol) 650 mg PO Q4H PRN PRN Reason: Pain, Mild (1-3) Amlodipine Besylate (Amlodipine) 10 mg PO DAILY@0800 [facility] Last Admin: 10/08/20 10:50 Dose: 10 mg Documented by: Aspirin (Halfprin Ec) 81 mg PO QDAY [facility] Last Admin: 10/08/20 10:40 Dose: 81 mg Documented by: Atorvastatin Calcium (Lipitor) 40 mg PO QHS [facility] Last Admin: 10/08/20 21:40 Dose: 40 mg Documented by: Bisacodyl (Dulcolax) 10 mg NM QDAY PRN PRN Reason: Constipation Calcium Acetate (Phoslo) 667 mg PO TIDWM [facility] Last Admin: 10/08/20 12:06 Dose: 667 mg Documented by: Cyproheptadine HCl (Periactin) 4 mg PO DAILY [facility] Last Admin: 10/08/20 12:06 Dose: 4 mg Documented by: Dextrose (D50w (25gm) Syringe) 0 ml IV Q30MIN PRN; Protocol PRN Reason: Hypoglycemia Epoetin Theron (Procrit) 20,000 unit IV BRYAN PRN PRN Reason: hemodialysis Ferrous Sulfate (Feosol) 325 mg PO BID [facility] Folic Acid (Folvite) 1 mg PO DAILY [facility] Last Admin: 10/08/20 10:41 Dose: 1 mg Documented by: Sodium Chloride (Nacl 0.9% 1000 Ml) 1,000 mls @ 75 mls/hr IV DIRECT [facility] Sodium Chloride (Nacl 0.9%) 100 mls @ 999 mls/hr IV BRYAN PRN PRN Reason: Hypotension Insulin Human Lispro (Humalog) 0 unit SUB-Q ACHS [facility]; Protocol Last Admin: 10/09/20 10:39 Dose: Not Given Documented by: Lactobacillus Acidophilus (Lactinex) 1 each PO QDAY [facility] Last Admin: 10/08/20 12:05 Dose: 1 each Documented by: Losartan Potassium (Cozaar) 25 mg PO QDAY [facility] Last Admin: 10/08/20 10:50 Dose: 25 mg Documented by: Magnesium Hydroxide (Milk Of Magnesia) 30 ml PO Q4H PRN PRN Reason: Constipation Metoclopramide HCl (Reglan) 5 mg PO Q6H PRN PRN Reason: Nausea And Vomiting Metoprolol Tartrate (Metoprolol) 50 mg PO TID [facility] Morphine Sulfate (Morphine) 2 mg IV Q4H PRN PRN Reason: Pain, Moderate (4-6) Ondansetron HCl (Zofran) 4 mg IV Q8H PRN PRN Reason: Nausea And Vomiting Pantoprazole Sodium (Protonix) 40 mg PO QDAY [facility] Last Admin: 10/08/20 10:40 Dose: 40 mg Documented by: Promethazine HCl (Phenergan) 25 mg NM Q6H PRN PRN Reason: Nausea And Vomiting Sodium Chloride (Sodium Chloride Flush Syringe 10 Ml) 10 ml IV BID [facility] Last Admin: 10/08/20 21:40 Dose: 10 ml Documented by: Sodium Chloride (Sodium Chloride Flush Syringe 10 Ml) 10 ml IV PRN PRN PRN Reason: LINE FLUSH Sucralfate (Carafate) 1 gm PO [facility] Stop: 10/10/20 16:31 Review of Systems All systems: negative (except as per HPI;) Physical Examination - Vital Signs Vital Signs: Vital Signs Pulse Resp BP Pulse Ox 83 12 171/83 99 10/07/20 21:46 10/07/20 21:46 10/07/20 21:46 10/07/20 21:46 - Additional Exam Additional Exam: Gen: nad, well-nourished; Head: normocephalic; Eyes: no gaze deviation; no ptosis; ENT: normal vocalization; CVS: warm and well-perfused; Pulm: no respiratory distress; GI: non-distended, non-protuberant; Ext: no cyanosis or edema appreciated w/ BKA bilaterally; Skin: no acute rash or hives at distal extremities; Heme: no pathologic bruising or ecchymosis at distal extremities; Neuro: alert, oriented to name, age, month, surroundings, moderate dysarthria, no aphasia, CN 2 - PERRL, visual hernandez grossly intact, CN 3, 4, 6 - EOMI, CN 5 - facial sensation symmetric to light touch, CN 7 - facial movement decreased on the left, CN 8 - hearing grossly intact, CN 9, 10 - swallows spontaneously, CN 11 - shrug symmetric, CN 12 - tongue midline; Motor - at least 4-/5 at RUE and at least 3/5 at LUE; at least 4-/5 at proximal BLEs; Sensory - light touch decreased at LUE, Cerebellar - fnf difficulty L>R due to weakness o/w intact; cannot participate w/ hts secondary to bilateral BKAs, Gait - deferred secondary bilateral BKA; NIHSS (1a.) Level of Consciousness:0 (1b.) LOC Questions:0 (1c.) LOC Commands:0 (2.) Best Gaze:0 (3.) Visual:0 (4.) Facial Palsy:1 (5a.) Motor Arm, Left:2 (5b.) Motor Arm, Right:1 (6a.) Motor Leg, Left:0 (6b.) Motor Leg, Right:0 (7.) Limb Ataxia:0 (8.) Sensory:1 (9.) Best Language:0 (10.) Dysarthria:2 (11.) Extinction and Inattention:0 NIHSS Total Score:7 Results - Laboratory Findings CBC and BMP: 10/09/20 04:18 10/09/20 04:18 Abnormal Lab Findings: Abnormal Labs 10/07/20 10/07/20 10/07/20 21:09 21:09 21:09 RBC 2.58 L Hgb 7.7 L Hct 22.9 L RDW 16.9 H [place] % (Auto) 8.8 H Eos % (Auto) 5.0 H Lymph # (Auto) 0.9 L INR 1.15 H Thrombin Time BUN Creatinine 3.4 H Glucose 195 H POC Glucose Calcium Troponin T 0.358 H* LDL Cholesterol Direct 38 L HDL Cholesterol 64 H 10/07/20 10/07/20 10/08/20 21:09 21:34 10:31 RBC Hgb Hct RDW [place] % (Auto) Eos % (Auto) Lymph # (Auto) INR Thrombin Time 15.0 L BUN Creatinine Glucose POC Glucose 253 H 114 H Calcium Troponin T LDL Cholesterol Direct HDL Cholesterol 10/08/20 10/08/20 10/09/20 16:37 20:33 04:18 RBC 2.63 L Hgb 7.7 L Hct 23.6 L RDW 17.5 H [place] % (Auto) Eos % (Auto) Lymph # (Auto) INR Thrombin Time BUN Creatinine Glucose POC Glucose 135 H 127 H Calcium Troponin T LDL Cholesterol Direct HDL Cholesterol 10/09/20 10/09/20 04:18 07:31 RBC Hgb Hct RDW [place] % (Auto) Eos % (Auto) Lymph # (Auto) INR Thrombin Time BUN 32 H Creatinine 6.0 H D Glucose 146 H POC Glucose 146 H Calcium 10.5 H Troponin T LDL Cholesterol Direct HDL Cholesterol Assessment and Plan 74 yo male with afib, htn, dm, hld, gerd, GI bleed, 09/30/2020 CVA (acute ischemic stroke), bilateral BKA who presents w/ transient worsening of his dysar thria and ability to get words out. PLAN 1. Acute Ischemic Stroke: ideally patient should be on anticoagulation but hx of GI bleed contraindicates use of anticoagulatoin unless cleared by GI; re commend watchman procedure for afib-related strokes w/ anticoagulation as a contraindication; if okay by GI, recommend Enteric-coated ASA 325 mg PO qday (currently on ASA 81 mg qday) OR Plavix 75 mg PO qday (until anticoagulation vs. watchman procedure is addressed), images not available to me of the MRI Brain w/o contrast (report pending), unremarkable (per report) CTA Head/Neck w/ & w/o contrast; long-term risk factor modificaiton of htn, dm, hld; SBP goal 140-180 mmHg and DBP 80-100 mmHg for 48 more hours. Statin therapy for a goal LDL of 70, when patient passes swallow evaluation. PT/OT/ST/Swallow evaluation. Long- term risk-factor modification, including a strict diet/exercise regimen for secondary stroke prophylaxis. 2. Hypertension - goal SBP 140-180 mmHg and DBP 80-100 mmHg for 48 more hours. 3. Diabetes Mellitus - maintain euglycemia. 4. Hyperlipidemia - goal LDL of 70 w/ statin therapy if no contraindications. 5. Dysarthria / Dysphagia - st / swallow evaluation/monitoring. 6. Left arm > Right arm weakness - pt/ot evaluation/monitoring. 7. Anemia - per primary / GI. 8. Hx of GI bleed - clearance for safety of use of anticoagulation o/w watchman procedure for secondary stroke prophylaxis in the setting of afib. Jeancarlos Henderson MD Neurology
[2020-10-09] MEDS: LOSARTAN 25 MG TAB PO SCH (11:59)
[2020-10-09] MEDS: LACTINEX CHEW TAB PO SCH (11:59)
[2020-10-09] MEDS: FERROUS SULFATE 325 MG TAB PO SCH ×2 (11:59→22:44)
[2020-10-09] MEDS ORDERED: METOPROLOL TARTRATE 50 MG TAB PO SCH (12:00)
[2020-10-09] MEDS: FOLIC ACID 1 MG TAB PO SCH (12:00)
[2020-10-09] MEDS: ASPIRIN EC 81 MG TAB PO SCH (12:00)
[2020-10-09] MEDS: SUCRALFATE 1 GM TAB PO SCH ×3 (12:12→22:43)
[2020-10-09] MEDS: amLODIPine 10 MG TAB PO SCH (12:12)
[2020-10-09] MEDS: PANTOPRAZOLE 40 MG TAB PO SCH (12:12)
--- NOTE | 2020-10-09 12:39 | Vascular Lab Report ---
DUPLEX DOPPLER ULTRASOUND CAROTID, BILATERAL INDICATION / CLINICAL INFORMATION: stroke. COMPARISON: None available. FINDINGS: RIGHT CAROTID: Small amount of plaque - PLAQUE ESTIMATE (%): < 50% - CCA velocity: 90 cm/sec. - ICA peak systolic velocity: 65 cm/sec. - ICA/CCA PSV Ratio: 1.04 Right Vertebral Artery: Antegrade flow. LEFT CAROTID: Small amount of plaque - PLAQUE ESTIMATE: < 50% - CCA velocity: 85 cm/sec. - ICA peak systolic velocity: 60 cm/sec. - ICA/CCA PSV Ratio: 0.78 Left Vertebral Artery: Antegrade flow. IMPRESSION: 1. Right Internal Carotid Artery: Less than 50% diameter stenosis. 2. Left Internal Carotid Artery: Less than 50% diameter stenosis. Velocity criteria are extrapolated from diameter data as defined by the Society of Radiologists in Ul trasound Consensus Conference, Radiology 2003; 229;340-346. NO STENOSIS (NORMAL) * Plaque = none; ICA PSV < 125 cm/sec; ICA/CCA PSV Ratio < 2.0 <50% STENOSIS * Plaque < 50%; ICA PSV < 125 cm/sec; ICA/CCA PSV Ratio < 2.0 50-69% STENOSIS * Plaque > 50%; ICA PSV = 125-230 cm/sec; ICA/CCA PSV Ratio = 2.0-4.0 >70% BUT <100% STENOSIS * Plaque > 50%; ICA PSV > 230 cm/sec; ICA/CCA PSV Ratio > 4.0 NEAR OCCLUSION * Plaque = visible lumen; ICA PSV = high/low/none; ICA/CCA PSV Ratio = variable TOTAL OCCLUSION * Plaque = no lumen; ICA PSV = none; ICA/CCA PSV Ratio = N/A Signer Name: Tyrel Vieira MD Signed: 10/09/2020 12:33 PM Workstation Name: [id number]
--- NOTE | 2020-10-09 12:51 | Magnetic Resonance Report ---
MR brain wo con INDICATION / CLINICAL INFORMATION: Difficulty speaking.. TECHNIQUE: Multiplanar, multisequence MR images of the brain were obtained. COMPARISON: MRI 11/15/2014, CT head 10/07/2020 FINDINGS: INTRACRANIAL: With cephalization from remote right MCA distribution infarction. There is DWI signal h yperintensity seen within the left centrum semiovale on image 21 of series 5 and a punctate focus inv olving the precentral gyrus on image 23 series 5. There is normalization of ADC and possibly slight h ypointensity seen on image 21 of series 501. There is T2 signal hyperintensity involving the left pre central gyrus without DWI intensity. Remote left insular infarct. No hemorrhage. Ventricular caliber is normal. No extra-axial collection. No mass. No herniation. Major intracranial vascular flow voids are preserved. ORBITS: No significant abnormality of visualized orbits. SINUSES / MASTOIDS: No significant abnormality of visualized sinuses and mastoid air cells. ADDITIONAL FINDINGS: None. IMPRESSION: 1. Suspect a small subacute infarction involving the left centrum semiovale and possibly a tiny focus of subacute infarct involving the left precentral gyrus. 2. There are also remote infarctions involving the left precentral gyrus and in the right MCA territo ry but they are new compared to 2013. Signer Name: Dustin Lee MD Signed: 10/09/2020 12:47 PM Workstation Name: [id number]
[2020-10-09] MEDS: CYPROHEPTADINE 4 MG TAB PO SCH (16:14)
[2020-10-09] MEDS: METOPROLOL TARTRATE 50 MG TAB PO SCH ×2 (16:17→22:44)
[2020-10-10 05:18] LABS: Hematocrit 20.8 % (35.5-45.6); Hemoglobin 6.8 gm/dl (11.8-15.2); Mean Corpuscular HGB Conc 33 % (32-34); Mean Corpuscular Volume 91 fl (84-94); Platelet Count 172 K/mm3 (140-440); Red Cell Distribution Width 17.5 % (13.2-15.2)
[2020-10-10 05:36] LABS: Calcium 10.3 mg/dL (8.4-10.2)
[2020-10-10] MEDS: INSULIN LISPRO 100 UNIT/ML VIAL 3 mL SUB-Q SCH ×4 (08:40→21:46)
[2020-10-10] MEDS: SUCRALFATE 1 GM TAB PO SCH ×3 (08:56→17:07)
[2020-10-10] MEDS: CALCIUM ACETATE 667 MG CAP PO SCH ×3 (08:58→17:06)
[2020-10-10] MEDS: LACTINEX CHEW TAB PO SCH (09:03)
[2020-10-10] MEDS: PANTOPRAZOLE 40 MG TAB PO SCH (09:04)
[2020-10-10] MEDS: ASPIRIN EC 81 MG TAB PO SCH (09:04)
[2020-10-10] MEDS: FERROUS SULFATE 325 MG TAB PO SCH ×2 (09:04→21:41)
[2020-10-10] MEDS: FOLIC ACID 1 MG TAB PO SCH (09:05)
--- NOTE | 2020-10-10 09:28 | Progress Note ---
Assessment and Plan Impression * End stage renal disease * Acute CVA * Atrial fibrillation * Peripheral artery disease * Anemia secondary to ESRD * Secondary hyperparathyroidism Plan * Will continue HD TTS schedule * Neurology recommendations reviewed * Transfuse pRBC prn * Epogen TIW * Renal diet * Dose medications for renal function Subjective Date of service: 10/10/20 Principal diagnosis: esrd Interval history: resting in bed today Objective - Exam Narrative Exam: General appearance: well-developed, well-nourished EENT: ATNC Respiratory: Clear to Ascultation Heart: regular, S1S2 Gastrointestinal: Present: other (PD cathter in place). Absent: normal, tenderness, distended Integumentary: no rash, warm and dry Neurologic: other (slurred speech) Musculoskeletal: Present: other (Bilateral BKA) Psychiatric: cooperative - Vital Signs Vital signs: Vital Signs - 12hr 10/09/20 10/09/20 10/09/20 22:00 22:44 23:05 Temperature 97.9 F Pulse Rate 89 93 H Pulse Rate [ 89 From Monitor] Respiratory 18 14 Rate Blood Pressure 148/85 147/81 O2 Sat by Pulse 99 99 Oximetry 10/10/20 10/10/20 10/10/20 02:00 03:32 08:28 Temperature 98.4 F Pulse Rate 93 H 95 H Pulse Rate [ From Monitor] Respiratory 18 Rate Blood Pressure 139/80 O2 Sat by Pulse 98 95 Oximetry 10/10/20 08:50 Temperature Pulse Rate 111 H Pulse Rate [ From Monitor] Respiratory 20 Rate Blood Pressure 141/78 O2 Sat by Pulse 99 Oximetry - Lab 10/10/20 04:32 10/10/20 04:32 Most recent lab results Calcium 10.3 mg/dL (8.4-10.2) H 10/10/20 04:32 Medications & Allergies - Medications Allergies/Adverse Reactions: Allergies minoxidil Allergy (Severe, Verified 07/30/13 01:36) Angioedema Home Medications: Home Medications Medication Instructions Recorded Confirmed Last Taken Type Glimepiride [Amaryl] 1 mg PO QAM #30 tablet 08/09/13 10/07/20 1 Day Ago Rx ~10/06/20 Pantoprazole [Protonix] 40 mg PO QDAY #30 tablet 08/09/13 10/07/20 1 Day Ago Rx ~10/06/20 Apixaban [Eliquis] 2.5 mg PO BID 10/07/20 10/07/20 1 Day Ago History ~10/06/20 AtorvaSTATin [Lipitor] 40 mg PO QHS 10/07/20 10/07/20 1 Day Ago History ~10/06/20 Calcium Acetate [Phoslo] 667 mg PO TID 10/07/20 10/07/20 1 Day Ago History ~10/06/20 Cyproheptadine 4 mg PO DAILY 10/07/20 10/07/20 Unknown History Folic Acid 1 mg PO DAILY 10/07/20 10/07/20 1 Day Ago History ~10/06/20 L. Acidophilus/Bifid. Animalis 1 each PO DAILY 10/07/20 10/07/20 Unknown History [Dialyvite Chewable Probiotic] Losartan [Cozaar] 25 mg PO QDAY 10/07/20 10/07/20 1 Day Ago History ~10/06/20 Metoprolol [Lopressor TAB] 50 mg PO BID 10/07/20 10/07/20 1 Day Ago History ~10/06/20 Vancomycin 1,250 mg/12.5 ml Vl 125 mg PO DAILY 10/07/20 10/07/20 1 Day Ago History ~10/06/20 amLODIPine [Norvasc] 10 mg PO DAILY 10/07/20 10/07/20 1 Day Ago History ~10/06/20 Active Medications: Generic Name Dose Route Start Last Admin Trade Name Freq PRN Reason Stop Dose Admin Acetaminophen 650 mg 10/07/20 23:14 Tylenol PO Q4H PRN Pain, Mild (1-3) Amlodipine Besylate 10 mg 10/08/20 08:00 10/09/20 12:12 Amlodipine PO 10 mg DAILY@0800 FRANCOIS Administration Aspirin 81 mg 10/08/20 10:00 10/10/20 09:04 Halfprin Ec PO 81 mg QDAY FRANCOIS Administration Atorvastatin Calcium 40 mg 10/08/20 22:00 10/09/20 22:44 Lipitor PO 40 mg QHS FRANCOIS Administration Bisacodyl 10 mg 10/07/20 23:14 Dulcolax NM QDAY PRN Constipation Calcium Acetate 667 mg 10/08/20 08:00 10/10/20 08:58 Phoslo PO 667 mg TIDWM FRANCOIS Administration Cyproheptadine HCl 4 mg 10/08/20 10:00 10/09/20 16:14 Periactin PO 4 mg DAILY FRANCOIS Administration Dextrose 0 ml 10/07/20 23:14 D50w (25gm) Syringe IV Q30MIN PRN Hypoglycemia Protocol Epoetin Theron 20,000 unit 10/08/20 19:53 Procrit IV BRYAN PRN hemodialysis Ferrous Sulfate 325 mg 10/09/20 10:00 10/10/20 09:04 Feosol PO 325 mg BID FRANCOIS Administration Folic Acid 1 mg 10/08/20 10:00 10/10/20 09:05 Folvite PO 1 mg DAILY FRANCOIS Administration Sodium Chloride 1,000 mls @ 75 mls/hr 10/07/20 23:15 Nacl 0.9% 1000 Ml IV DIRECT FRANCOIS Sodium Chloride 100 mls @ 999 mls/hr 10/08/20 19:53 Nacl 0.9% IV BRYAN PRN Hypotension Insulin Human Lispro 0 unit 10/08/20 07:30 10/10/20 08:40 Humalog SUB-Q Not Given ACHS [facility] Protocol Lactobacillus Acidophilus 1 each 10/08/20 10:00 10/10/20 09:03 Lactinex PO 1 each QDAY FRANCOIS Administration Losartan Potassium 25 mg 10/08/20 10:00 10/09/20 11:59 Cozaar PO 25 mg QDAY FRANCOIS Administration Magnesium Hydroxide 30 ml 10/07/20 23:14 Milk Of Magnesia PO Q4H PRN Constipation Metoclopramide HCl 5 mg 10/07/20 23:14 Reglan PO Q6H PRN Nausea And Vomiting Metoprolol Tartrate 50 mg 10/09/20 14:00 10/09/20 22:44 Metoprolol PO 50 mg TID FRANCOIS Administration Morphine Sulfate 2 mg 10/07/20 23:14 Morphine IV Q4H PRN Pain, Moderate (4-6) Ondansetron HCl 4 mg 10/07/20 23:14 Zofran IV Q8H PRN Nausea And Vomiting Pantoprazole Sodium 40 mg 10/08/20 10:00 10/10/20 09:04 Protonix PO 40 mg QDAY FRANCOIS Administration Promethazine HCl 25 mg 10/07/20 23:14 Phenergan NM Q6H PRN Nausea And Vomiting Sodium Chloride 10 ml 10/08/20 10:00 10/10/20 09:05 Sodium Chloride Flush Syringe 10 Ml IV 10 ml BID FRANCOIS Administration Sodium Chloride 10 ml 10/07/20 23:14 Sodium Chloride Flush Syringe 10 Ml IV PRN PRN LINE FLUSH Sucralfate 1 gm 10/09/20 12:00 10/10/20 08:56 Carafate PO 10/10/20 16:31 1 gm ACHS FRANCOIS Administration
[2020-10-10] MEDS: amLODIPine 10 MG TAB PO SCH (10:00)
[2020-10-10] MEDS: LOSARTAN 25 MG TAB PO SCH (10:00)
[2020-10-10] MEDS: CYPROHEPTADINE 4 MG TAB PO SCH (10:00)
--- NOTE | 2020-10-10 10:33 | Progress Note ---
Assessment and Plan tele reviewed - in AFib HR 90 - 120s. Optimize HR - increase PO lopressor and titrate as tolerated, d/c hydralazine. tte reviewed - normal EF, negative bubble study. CE elevation appears c/w NSTEMI type II. Pt noted to have significant anemia. Recommend further eval/management of anemia per primary. Brain MRI shows small subacute infarction involving left centrum semiovale and possibly a tiny focus of subacute infarct involving the left precentral gyrus, remote infarctions involving left precentral gyrus and in the right MCA terr itory but they are new compared to 2014. Neuro w/u in progress. Cont to hold home Eliquis pending neuro w/u and in setting of anemia. Recommend resumption of systemic AC if/when ok per neurology team. Pt reports full compliance with home NOAC and thus he may require transition to coumadin given recurrent CVA. The patient has been seen in conjunction with Dr. Navarro who agrees with the assessment and plan of care. - Patient Problems (1) Atrial fibrillation Current Visit: Yes Status: Acute (2) CVA (cerebral vascular accident) Current Visit: Yes Status: Suspected (3) History of CVA (cerebrovascular accident) Current Visit: Yes Status: Chronic (4) ESRD on dialysis Current Visit: Yes Status: Chronic (5) Anemia Current Visit: Yes Status: Chronic (6) History of GI bleed Current Visit: Yes Status: Chronic (7) PVD (peripheral vascular disease) Current Visit: Yes Status: Chronic (8) History of leg amputation Current Visit: Yes Status: Chronic (9) Hypertension Current Visit: Yes Status: Chronic (10) Diabetes Current Visit: Yes Status: Chronic (11) NSTEMI (non-ST elevated myocardial infarction) Current Visit: Yes Status: Acute Plan to address problem: suspect type II Subjective Date of service: 10/10/20 Principal diagnosis: esrd Interval history: pt seen in dialysis, no current cardiac complaints. tele reviewed - in AFib HR mostly 90s - 120s overnight. Objective Last Vital Signs Temp 98.4 F 10/10/20 03:32 Pulse 111 H 10/10/20 08:50 Resp 20 10/10/20 08:50 BP 141/78 10/10/20 08:50 Pulse Ox 99 10/10/20 08:50 - Physical Examination General: No Apparent Distress Cardiac: Positive: irregularly irregular, S1/S2 Lungs: Positive: Decreased Breath Sounds Abdomen: Negative: Tender Skin: Negative: Rash - Labs and Meds CBC 10/10/20 Range/Units 04:32 WBC 7.5 (4.5-11.0) K/mm3 RBC 2.30 L (3.65-5.03) M/mm3 Hgb 6.8 L (11.8-15.2) gm/dl Hct 20.8 L (35.5-45.6) % Plt Count 172 (140-440) K/mm3 Comprehensive Metabolic Panel 10/10/20 Range/Units 04:32 Sodium 141 (137-145) mmol/L Potassium 3.8 (3.6-5.0) mmol/L Chloride 102.0 (98-107) mmol/L Carbon Dioxide 24 (22-30) mmol/L BUN 42 H (9-20) mg/dL Creatinine 7.8 H (0.8-1.3) mg/dL Glucose 55 L (75-100) mg/dL Calcium 10.3 H (8.4-10.2) mg/dL - Telemetry EKG Rhythm: Atrial Fibrillation
[2020-10-10] MEDS ORDERED: SODIUM CHLORIDE 0.9% 500 ML 500 ML IV SCH (12:30)
[2020-10-10 15:01] LABS: Hepatitis B Surface Antigen Non-Reactive (Negative); Hepatitis C Virus Antibody Non-Reactive (NonReactive)
--- NOTE | 2020-10-10 16:09 | Progress Note ---
Assessment and Plan Assessment and plan: --Anemia/acute blood loss anemia; Type and cross, transfuse 1 unit of PRBC Closely monitor H&H --Acute CVA; Not a candidate for TPA, aspirin and statin Neurology evaluation noted and appreciated Patient was not on anticoagulation for A. fib due to Recent severe GI bleeding Physical therapy occupational therapy rehabilitation --History of CVA; With residual weakness, continue PT OT supportive care --History of atrial fibrillation; rate controlled Continue AV octaviano blocking agents, not on anticoagulation Secondary to severe GI bleeding requiring blood transfusion --End-stage renal disease; on hemodialysis Nephrology following, HD per schedule --History of GI bleeding in the past; Severe anemia, closely monitor H&H Transfuse if Hb is less than 7, GI consult as needed --Peripheral vascular disease; continue antiplatelets and statins Supportive care --History of bilateral BKA; Physical therapy occupational therapy supportive care --DVT prophylaxis; SCDs No pharmacologic anticoagulation in view of severe anemia And GI bleeding --Full CODE STATUS; We will closely monitor the patient and adjust management as needed Water Valve Repairer recommendations noted and appreciated DC planning per case management when medically stable Plan of care reviewed with the patient and his nurse History Interval history: I have seen and examined the patient at the bedside today Patient's chart and medications reviewed Patient has mild drop in H&H hemoglobin today 6.8 Vital signs noted Hospitalist Physical - Constitutional Vitals: Temp Pulse Resp BP Pulse Ox 98.4 F 111 H 20 141/78 99 10/10/20 03:32 10/10/20 08:50 10/10/20 08:50 10/10/20 08:50 10/10/20 08:50 General appearance: Present: mild distress, well-nourished, other (Chronically ill looking) - EENT Eyes: Present: PERRL, EOM intact - Neck Neck: Present: supple, normal ROM - Respiratory Respiratory effort: normal Respiratory: bilateral: diminished, rhonchi, negative: rales, wheezing - Cardiovascular Rhythm: regular Heart Sounds: Present: S1 & S2 - Extremities Extremities: abnormal (Bilateral BKA) HEART Score - HEART Score Troponin: Troponin T 0.410 ng/mL (0.00-0.029) H* 10/10/20 04:32 Results - Labs CBC & Chem 7: 10/10/20 04:32 10/10/20 04:32 Labs: Laboratory Last Values WBC 7.5 K/mm3 (4.5-11.0) 10/10/20 04:32 RBC 2.30 M/mm3 (3.65-5.03) L 10/10/20 04:32 Hgb 6.8 gm/dl (11.8-15.2) L 10/10/20 04:32 Hct 20.8 % (35.5-45.6) L 10/10/20 04:32 MCV 91 fl (84-94) 10/10/20 04:32 MCH 30 pg (28-32) 10/10/20 04:32 MCHC 33 % (32-34) 10/10/20 04:32 RDW 17.5 % (13.2-15.2) H 10/10/20 04:32 Plt Count 172 K/mm3 (140-440) 10/10/20 04:32 Lymph % (Auto) 15.7 % (13.4-35.0) 10/07/20 21:09 George % (Auto) 8.8 % (0.0-7.3) H 10/07/20 21:09 Eos % (Auto) 5.0 % (0.0-4.3) H 10/07/20 21:09 Baso % (Auto) 1.0 % (0.0-1.8) 10/07/20 21:09 Lymph # (Auto) 0.9 K/mm3 (1.2-5.4) L 10/07/20 21:09 George # (Auto) 0.5 K/mm3 (0.0-0.8) 10/07/20 21:09 Eos # (Auto) 0.3 K/mm3 (0.0-0.4) 10/07/20 21:09 Baso # (Auto) 0.1 K/mm3 (0.0-0.1) 10/07/20 21:09 Seg Neutrophils % 69.5 % (40.0-70.0) 10/07/20 21:09 Seg Neutrophils # 3.8 K/mm3 (1.8-7.7) 10/07/20 21:09 PT 14.8 Sec. (12.2-14.9) 10/07/20 21:09 INR 1.15 (0.87-1.13) H 10/07/20 21:09 APTT 33.0 Sec. (24.2-36.6) 10/07/20 21:09 Thrombin Time 15.0 Sec. (15.1-19.6) L 10/07/20 21:09 Sodium 141 mmol/L (137-145) 10/10/20 04:32 Potassium 3.8 mmol/L (3.6-5.0) 10/10/20 04:32 Chloride 102.0 mmol/L (98-107) 10/10/20 04:32 Carbon Dioxide 24 mmol/L (22-30) 10/10/20 04:32 Anion Gap 19 mmol/L 10/10/20 04:32 BUN 42 mg/dL (9-20) H 10/10/20 04:32 Creatinine 7.8 mg/dL (0.8-1.3) H 10/10/20 04:32 Estimated GFR 8 ml/min 10/10/20 04:32 BUN/Creatinine Ratio 5 % 10/10/20 04:32 Glucose 55 mg/dL (75-100) L 10/10/20 04:32 POC Glucose 144 mg/dL (70-105) H 10/10/20 13:57 Calcium 10.3 mg/dL (8.4-10.2) H 10/10/20 04:32 Troponin T 0.410 ng/mL (0.00-0.029) H* 10/10/20 04:32 Triglycerides 97 mg/dL (2-149) 10/07/20 21:09 Cholesterol 118 mg/dL (50-199) 10/07/20 21:09 LDL Cholesterol Direct 38 mg/dL (50-130) L 10/07/20 21:09 HDL Cholesterol 64 mg/dL (40-59) H 10/07/20 21:09 Cholesterol/HDL Ratio 1.84 % 10/07/20 21:09 Hepatitis A IgM Ab Non-reactive (NonReactive) 10/10/20 14:24 Hep Bs Antigen Non-reactive (Negative) 10/10/20 14:24 Hep B Core IgM Ab Non-reactive (NonReactive) 10/10/20 14:24 Hepatitis C Antibody Non-reactive (NonReactive) 10/10/20 14:24 Blood Type O POSITIVE 10/10/20:20 Antibody Screen Negative 10/10/20 14:20 Crossmatch See Detail 10/10/20 14:20 - Diagnostic Impressions Diagnostic Impressions: Echocardiogram 10/07/20 23:22 Transthoracic Echocardiogram Indication: Stroke BP: 136/83 HR: 92 Conclusions *The left ventricular chamber size is normal. *Mild concentric left ventricular hypertrophy is observed. *The estimated ejection fraction is 50-55%. *Abnormal left ventricular diastolic function is observed. *The left atrium is severely dilated. *The right ventricular global systolic function is mildly reduced. *The right atrium is moderate to severely dilated. *No atrial septal defected is demonstrated by agitated saline contrast. *There is mild tricuspid regurgitation. *The right ventricular systolic pressure is calculated at 62 mmHg. Findings Left Ventricle: The left ventricular chamber size is normal. Mild concentric left ventricular hypertrophy is observed. Global left ventricular wall motion and contractility are within normal limits. Global left ventricular systolic function is normal. The estimated ejection fraction is 50-55%. Abnormal left ventricular diastolic function is observed. Left Atrium: The left atrium is severely dilated. Right Ventricle: The right ventricular cavity size is normal. The right ventricular global systolic function is mildly reduced. Right Atrium: The right atrium is moderate to severely dilated. No atrial septal defected is demonstrated by agitated saline contrast. Mitral Valve: The mitral valve leaflets are mildly thickened. There is mild mitral regurgitation. Tricuspid Valve: The tricuspid valve leaflets are normal. There is mild tricuspid regurgitation. The right ventricular systolic pressure is calculated at 62 mmHg. Pulmonic Valve: The pulmonic valve appears normal. There is trace pulmonic regurgitation. Pericardium: There is no pericardial effusion. Venous: The inferior vena cava is dilated. Measurements Chambers 2D Name Value Normal Range IVSd (2D) 1.44 cm (0.6 - 1.1) LVPWd (2D) 1.18 cm (0.6 - 1.1) LVIDd (2D) 5.3 cm (3.7 - 5.6) LVIDs (2D) 4.25 cm (2 - 3.8) LV FS (2D) 19.78 % - EF Teichholz (2D) 40.24 % - Ao root diameter (2D) 3.15 cm (2 - 3.7) Volumes/Mass Name Value Normal Range LA ESV SP 4CH (A/L) 111.72 ml - LA ESV SP 2CH (A/L) 109.85 ml - LA ESV BP (A/L) 111.95 ml - LA ESV BP (A/L) index 62.93 ml/m2 - LA ESV SP 4CH (MOD) 105.89 ml - LA ESV SP 2CH (MOD) 103.64 ml - LA ESV BP (MOD) 110.1 ml - LA ESV BP (MOD) index 59.2 ml/m2 - Aortic Valve Name Value Normal Range AV Vmax 2.44 m/sec - AV VTI 42.43 cm - AV peak gradient 23.82 mmHg - AV mean gradient 11.98 mmHg - LVOT diameter 2.01 cm - LVOT Vmax 1.17 m/sec - LVOT VTI 21.23 cm - LVOT peak gradient 5.51 mmHg - LVOT mean gradient 2.95 mmHg - SV LVOT 67.48 ml - MARY (continuity Vmax) 1.53 cm2 - MARY (continuity VTI) 1.59 cm2 - Ascending Ao 3.99 cm - Mitral Valve Name Value Normal Range MV PHT 48.72 msec - MR Vmax 4.9 m/sec - MVA (PHT) 4.52 cm2 - Tricuspid Valve Name Value Normal Range TR Vmax 3.7 m/sec - TR peak gradient 54.73 mmHg - RAP 8 mmHg - RVSP 62 mmHg - IVC diameter 2.24 cm (1.2 - 2.3) Pulmonic Valve/Qp:Qs Name Value Normal Range ND end-diastolic Vmax 0.86 m/sec - PV acceleration time 68.51 msec - Whaley/IV: IV Catheter Type [Right INT / Saline Lock Antecubital] Active Medications - Current Medications Current Medications: Generic Name Dose Route Start Last Admin Trade Name Freq PRN Reason Stop Dose Admin Acetaminophen 650 mg 10/07/20 23:14 Tylenol PO Q4H PRN Pain, Mild (1-3) Amlodipine Besylate 10 mg 10/08/20 08:00 10/10/20 10:00 Amlodipine PO Not Given DAILY@0800 FRANCOIS Aspirin 81 mg 10/08/20 10:00 10/10/20 09:04 Halfprin Ec PO 81 mg QDAY FRANCOIS Administration Atorvastatin Calcium 40 mg 10/08/20 22:00 10/09/20 22:44 Lipitor PO 40 mg QHS FRANCOIS Administration Bisacodyl 10 mg 10/07/20 23:14 Dulcolax ND QDAY PRN Constipation Calcium Acetate 667 mg 10/08/20 08:00 10/10/20 10:00 Phoslo PO Not Given TIDWM FRANCOIS Cyproheptadine HCl 4 mg 10/08/20 10:00 10/10/20 10:00 Periactin PO Not Given DAILY [facility] Dextrose 0 ml 10/07/20 23:14 D50w (25gm) Syringe IV Q30MIN PRN Hypoglycemia Protocol Epoetin Theron 20,000 unit 10/08/20 19:53 Procrit IV BRYAN PRN hemodialysis Ferrous Sulfate 325 mg 10/09/20 10:00 10/10/20 09:04 Feosol PO 325 mg BID FRANCOIS Administration Folic Acid 1 mg 10/08/20 10:00 10/10/20 09:05 Folvite PO 1 mg DAILY FRANCOIS Administration Sodium Chloride 1,000 mls @ 75 mls/hr 10/07/20 23:15 Nacl 0.9% 1000 Ml IV DIRECT FRANCOIS Sodium Chloride 100 mls @ 999 mls/hr 10/08/20 19:53 Nacl 0.9% IV BRYAN PRN Hypotension Sodium Chloride 500 mls @ 0 mls/hr 10/10/20 12:30 Nacl 0.9% 500 Ml IV 10/10/20 19:00 ONCE FRANCOIS As Directed Insulin Human Lispro 0 unit 10/08/20 07:30 10/10/20 11:30 Humalog SUB-Q Not Given ACHS [facility] Protocol Lactobacillus Acidophilus 1 each 10/08/20 10:00 10/10/20 09:03 Lactinex PO 1 each QDAY FRANCOIS Administration Losartan Potassium 25 mg 10/08/20 10:00 10/10/20 10:00 Cozaar PO Not Given QDAY [facility] Magnesium Hydroxide 30 ml 10/07/20 23:14 Milk Of Magnesia PO Q4H PRN Constipation Metoclopramide HCl 5 mg 10/07/20 23:14 Reglan PO Q6H PRN Nausea And Vomiting Metoprolol Tartrate 100 mg 10/10/20 22:00 Metoprolol PO BID [facility] Morphine Sulfate 2 mg 10/07/20 23:14 Morphine IV Q4H PRN Pain, Moderate (4-6) Ondansetron HCl 4 mg 10/07/20 23:14 Zofran IV Q8H PRN Nausea And Vomiting Pantoprazole Sodium 40 mg 10/08/20 10:00 10/10/20 09:04 Protonix PO 40 mg QDAY FRANCOIS Administration Promethazine HCl 25 mg 10/07/20 23:14 Phenergan ND Q6H PRN Nausea And Vomiting Sodium Chloride 10 ml 10/08/20 10:00 10/10/20 09:05 Sodium Chloride Flush Syringe 10 Ml IV 10 ml BID FRANCOIS Administration Sodium Chloride 10 ml 10/07/20 23:14 Sodium Chloride Flush Syringe 10 Ml IV PRN PRN LINE FLUSH Sucralfate 1 gm 10/09/20 12:00 10/10/20 10:00 Carafate PO 10/10/20 16:31 Not Given ACHS [facility] Nutrition/Malnutrition Assess - Dietary Evaluation Nutrition/Malnutrition Findings: Nutrition Notes Start: 10/08/20 13:04 Freq: Status: Active Protocol: Document 10/10/20 10:15 LM (Rec: 10/10/20 10:20 LM [id number]) Nutrition Notes Initial or Follow up Brief Note Current Diagnosis CKD (stage V CKD),Diabetes, Hypertension,Stroke, Hyperlipidemia Other Pertinent Diagnosis CVA Current Diet [facility] soft w/ ground meats/ consistent CHO/renal Height 5 ft 7 in Weight 74.5 kg [place] Body Weight (kg) 67.27 BMI 25.7 Subjective/Other Information Pt at HD at time of visit. Diet advanced to mech soft per INTEGRATION SOFTWARE DEVELOPER. Minimum of two criteria No Reduced Kindergarten Tutor Strength Measurably Reduced (severe) Nutrition Intervention Follow-Up By: 10/12/20 Additional Comments F/U for diet education, intakes
[2020-10-10] MEDS: ACETAMINOPHEN 325 MG TAB PO PRN ×2 (18:04→21:45)
[2020-10-10] MEDS: VANCOMYCIN 250 MG/10 ML ORAL LIQD PO SCH (18:50)
[2020-10-10] MEDS: METOPROLOL TARTRATE 50 MG TAB PO SCH (21:41)
[2020-10-11] MEDS: VANCOMYCIN 250 MG/10 ML ORAL LIQD PO SCH ×5 (05:51→17:27)
[2020-10-11] MEDS: INSULIN LISPRO 100 UNIT/ML VIAL 3 mL SUB-Q SCH ×5 (08:46→22:05)
[2020-10-11] MEDS: METOPROLOL TARTRATE 50 MG TAB PO SCH ×3 (08:48→21:49)
[2020-10-11] MEDS: METOPROLOL TARTRATE 5 MG/5 ML INJ IV SCH (08:48)
[2020-10-11] MEDS: hydrALAZINE 100 MG TAB PO SCH (08:49)
--- NOTE | 2020-10-11 09:36 | Progress Note ---
Assessment and Plan Impression * End stage renal disease * Acute CVA * Atrial fibrillation * Peripheral artery disease * Anemia secondary to ESRD * Secondary hyperparathyroidism Plan * Will continue HD TTS schedule * Neurology recommendations reviewed * Transfuse pRBC prn * Epogen TIW * Renal diet * Dose medications for renal function * ok to dc from renal standpoint Subjective Date of service: 10/11/20 Principal diagnosis: esrd Interval history: resting in bed today Objective - Exam Narrative Exam: General appearance: well-developed, well-nourished EENT: ATNC Respiratory: Clear to Ascultation Heart: regular, S1S2 Gastrointestinal: Present: other (PD cathter in place). Absent: normal, tenderness, distended Integumentary: no rash, warm and dry Neurologic: other (slurred speech) Musculoskeletal: Present: other (Bilateral BKA) Psychiatric: cooperative - Vital Signs Vital signs: Vital Signs - 12hr 10/10/20 10/10/20 10/10/20 21:41 23:13 23:22 Temperature 99.0 F Pulse Rate 114 H 99 H Pulse Rate [ 114 H From Monitor] Respiratory 18 18 Rate Blood Pressure 134/73 154/83 O2 Sat by Pulse 100 99 Oximetry 10/11/20 10/11/20 10/11/20 02:00 03:46 06:16 Temperature 98.0 F 98.3 F Pulse Rate 99 H Pulse Rate [ From Monitor] Respiratory 18 Rate Blood Pressure 123/84 O2 Sat by Pulse Oximetry 10/11/20 08:11 Temperature Pulse Rate Pulse Rate [ 114 H From Monitor] Respiratory 18 Rate Blood Pressure O2 Sat by Pulse 99 Oximetry - Lab 10/10/20 04:32 10/10/20 04:32 Most recent lab results Calcium 10.3 mg/dL (8.4-10.2) H 10/10/20 04:32 Medications & Allergies - Medications Allergies/Adverse Reactions: Allergies minoxidil Allergy (Severe, Verified 07/30/13 01:36) Angioedema Home Medications: Home Medications Medication Instructions Recorded Confirmed Last Taken Type Glimepiride [Amaryl] 1 mg PO QAM #30 tablet 08/09/13 10/07/20 1 Day Ago Rx ~10/06/20 Pantoprazole [Protonix] 40 mg PO QDAY #30 tablet 08/09/13 10/07/20 1 Day Ago Rx ~10/06/20 Apixaban [Eliquis] 2.5 mg PO BID 10/07/20 10/07/20 1 Day Ago History ~10/06/20 AtorvaSTATin [Lipitor] 40 mg PO QHS 10/07/20 10/07/20 1 Day Ago History ~10/06/20 Calcium Acetate [Phoslo] 667 mg PO TID 10/07/20 10/07/20 1 Day Ago History ~10/06/20 Cyproheptadine 4 mg PO DAILY 10/07/20 10/07/20 Unknown History Folic Acid 1 mg PO DAILY 10/07/20 10/07/20 1 Day Ago History ~10/06/20 L. Acidophilus/Bifid. Animalis 1 each PO DAILY 10/07/20 10/07/20 Unknown History [Dialyvite Chewable Probiotic] Losartan [Cozaar] 25 mg PO QDAY 10/07/20 10/07/20 1 Day Ago History ~10/06/20 Metoprolol [Lopressor TAB] 50 mg PO BID 10/07/20 10/07/20 1 Day Ago History ~10/06/20 Vancomycin 1,250 mg/12.5 ml Vl 125 mg PO DAILY 10/07/20 10/07/20 1 Day Ago History ~10/06/20 amLODIPine [Norvasc] 10 mg PO DAILY 10/07/20 10/07/20 1 Day Ago History ~10/06/20 Active Medications: Generic Name Dose Route Start Last Admin Trade Name Freq PRN Reason Stop Dose Admin Acetaminophen 650 mg 10/07/20 23:14 10/10/20 21:45 Tylenol PO 650 mg Q4H PRN Administration Pain, Mild (1-3) Amlodipine Besylate 10 mg 10/08/20 08:00 10/10/20 10:00 Amlodipine PO Not Given DAILY@0800 FRANCOIS Aspirin 81 mg 10/08/20 10:00 10/10/20 09:04 Halfprin Ec PO 81 mg QDAY FRANCOIS Administration Atorvastatin Calcium 40 mg 10/08/20 22:00 10/10/20 21:47 Lipitor PO 40 mg QHS FRANCOIS Administration Bisacodyl 10 mg 10/07/20 23:14 Dulcolax NE QDAY PRN Constipation Calcium Acetate 667 mg 10/08/20 08:00 10/10/20 17:06 Phoslo PO 667 mg TIDWM FRANCOIS Administration Cyproheptadine HCl 4 mg 10/08/20 10:00 10/10/20 10:00 Periactin PO Not Given DAILY [facility] Dextrose 0 ml 10/07/20 23:14 D50w (25gm) Syringe IV Q30MIN PRN Hypoglycemia Protocol Epoetin Theron 20,000 unit 10/08/20 19:53 Procrit IV BRYAN PRN hemodialysis Ferrous Sulfate 325 mg 10/09/20 10:00 10/10/20 21:41 Feosol PO 325 mg BID [facility] Administration Folic Acid 1 mg 10/08/20 10:00 10/10/20 09:05 Folvite PO 1 mg DAILY [facility] Administration Sodium Chloride 1,000 mls @ 75 mls/hr 10/07/20 23:15 Nacl 0.9% 1000 Ml IV DIRECT FRANCOIS Sodium Chloride 100 mls @ 999 mls/hr 10/08/20 19:53 Nacl 0.9% IV BRAYN PRN Hypotension Insulin Human Lispro 0 unit 10/08/20 07:30 10/11/20 08:48 Humalog SUB-Q Not Given ACHS [facility] Protocol Lactobacillus Acidophilus 1 each 10/08/20 10:00 10/10/20 09:03 Lactinex PO 1 each QDAY [facility] Administration Losartan Potassium 25 mg 10/08/20 10:00 10/10/20 10:00 Cozaar PO Not Given QDAY [facility] Magnesium Hydroxide 30 ml 10/07/20 23:14 Milk Of Magnesia PO Q4H PRN Constipation Metoclopramide HCl 5 mg 10/07/20 23:14 Reglan PO Q6H PRN Nausea And Vomiting Metoprolol Tartrate 100 mg 10/10/20 22:00 10/10/20 21:41 Metoprolol PO 100 mg BID [facility] Administration Morphine Sulfate 2 mg 10/07/20 23:14 Morphine IV Q4H PRN Pain, Moderate (4-6) Ondansetron HCl 4 mg 10/07/20 23:14 Zofran IV Q8H PRN Nausea And Vomiting Pantoprazole Sodium 40 mg 10/08/20 10:00 10/10/20 09:04 Protonix PO 40 mg QDAY [facility] [place] Administration Promethazine HCl 25 mg 10/07/20 23:14 Phenergan NE Q6H PRN Nausea And Vomiting Sodium Chloride 10 ml 10/08/20 10:00 10/10/20 21:48 Sodium Chloride Flush Syringe 10 Ml IV 10 ml BID FRANCOIS Administration Sodium Chloride 10 ml 10/07/20 23:14 Sodium Chloride Flush Syringe 10 Ml IV PRN PRN LINE FLUSH Vancomycin HCl 125 mg 10/10/20 18:00 10/11/20 06:50 Vancomycin Po PO 125 mg Q6HR FRANCOIS Administration
[2020-10-11 10:26] LABS: Hematocrit 28.1 % (35.5-45.6); Hemoglobin 9.2 gm/dl (11.8-15.2)
--- NOTE | 2020-10-11 10:34 | Progress Note ---
Assessment and Plan Assessment and plan: --Anemia/acute blood loss anemia; Status post 1 unit PRBC transfusion Hb improved from 6.8-9.2 Closely monitor, transfuse additional PRBC as needed --Acute CVA; Not a candidate for TPA, aspirin and statin Neurology evaluation noted and appreciated Patient was not on anticoagulation for A. fib due to Recent severe GI bleeding Decision to start anticoagulation per cardio/GI/Neurology Physical therapy occupational therapy rehabilitation --History of CVA; With residual weakness, continue PT OT supportive care MRI; small subacute infarction left centrum semiovale --History of atrial fibrillation; rate controlled Continue AV octaviano blocking agents, not on anticoagulation Secondary to severe GI bleeding requiring blood transfusion --End-stage renal disease; on hemodialysis Nephrology following, HD per schedule --History of GI bleeding in the past; Severe anemia, closely monitor H&H Transfuse if Hb is less than 7, GI consult as needed --Peripheral vascular disease; continue antiplatelets and statins Supportive care --History of bilateral BKA; Physical therapy occupational therapy supportive care --DVT prophylaxis; SCDs No pharmacologic anticoagulation in view of severe anemia And GI bleeding --Full CODE STATUS; We will closely monitor the patient and adjust management as needed Return Checker recommendations noted and appreciated DC planning per case management when medically stable Plan of care reviewed with the patient and his nurse History Interval history: I have seen and examined the patient at the bedside Patient's chart and medications reviewed Patient is receiving wound care Feels better no new complaints Vital signs reviewed Hospitalist Physical - Constitutional Vitals: Temp Pulse Resp BP Pulse Ox 98.3 F 114 H 18 123/84 99 10/11/20 06:16 10/11/20 08:11 10/11/20 08:11 10/11/20 03:46 10/11/20 08:11 General appearance: Present: mild distress, well-nourished, other (Chronically ill looking) - EENT Eyes: Present: PERRL, EOM intact - Neck Neck: Present: supple, normal ROM - Respiratory Respiratory effort: normal Respiratory: bilateral: diminished, negative: rales, rhonchi, wheezing - Cardiovascular Rhythm: regular Heart Sounds: Present: S1 & S2 - Extremities Extremities: no ischemia, No edema, abnormal (Bilateral BKA) - Abdominal General gastrointestinal: soft, non-tender, non-distended, normal bowel sounds - Integumentary Integumentary: Present: clear, warm - Psychiatric Psychiatric: appropriate mood/affect, cooperative - Neurologic Neurologic: CNII-XII intact, moves all extremities HEART Score - HEART Score Troponin: Troponin T 0.410 ng/mL (0.00-0.029) H* 10/10/20 04:32 Results - Labs CBC & Chem 7: 10/11/20 09:36 10/11/20 09:36 Labs: Laboratory Last Values WBC 7.5 K/mm3 (4.5-11.0) 10/10/20 04:32 RBC 2.30 M/mm3 (3.65-5.03) L 10/10/20 04:32 Hgb 9.2 gm/dl (11.8-15.2) L 10/11/20 09:36 Hct 20.8 % (35.5-45.6) L 10/10/20 04:32 MCV 91 fl (84-94) 10/10/20 04:32 MCH 30 pg (28-32) 10/10/20 04:32 MCHC 33 % (32-34) 10/10/20 04:32 RDW 17.5 % (13.2-15.2) H 10/10/20 04:32 Plt Count 172 K/mm3 (140-440) 10/10/20 04:32 Lymph % (Auto) 15.7 % (13.4-35.0) 10/07/20 21:09 Teller % (Auto) 8.8 % (0.0-7.3) H 10/07/20 21:09 Eos % (Auto) 5.0 % (0.0-4.3) H 10/07/20 21:09 Baso % (Auto) 1.0 % (0.0-1.8) 10/07/20 21:09 Lymph # (Auto) 0.9 K/mm3 (1.2-5.4) L 10/07/20 21:09 Teller # (Auto) 0.5 K/mm3 (0.0-0.8) 10/07/20 21:09 Eos # (Auto) 0.3 K/mm3 (0.0-0.4) 10/07/20 21:09 Baso # (Auto) 0.1 K/mm3 (0.0-0.1) 10/07/20 21:09 Seg Neutrophils % 69.5 % (40.0-70.0) 10/07/20 21:09 Seg Neutrophils # 3.8 K/mm3 (1.8-7.7) 10/07/20 21:09 PT 14.8 Sec. (12.2-14.9) 10/07/20 21:09 INR 1.15 (0.87-1.13) H 10/07/20 21:09 APTT 33.0 Sec. (24.2-36.6) 10/07/20 21:09 Thrombin Time 15.0 Sec. (15.1-19.6) L 10/07/20 21:09 Sodium 141 mmol/L (137-145) 10/10/20 04:32 Potassium 3.8 mmol/L (3.6-5.0) 10/10/20 04:32 Chloride 102.0 mmol/L (98-107) 10/10/20 04:32 Carbon Dioxide 24 mmol/L (22-30) 10/10/20 04:32 Anion Gap 19 mmol/L 10/10/20 04:32 BUN 42 mg/dL (9-20) H 10/10/20 04:32 Creatinine 7.8 mg/dL (0.8-1.3) H 10/10/20 04:32 Estimated GFR 8 ml/min 10/10/20 04:32 BUN/Creatinine Ratio 5 % 10/10/20 04:32 Glucose 55 mg/dL (75-100) L 10/10/20 04:32 POC Glucose 101 mg/dL (70-105) 10/11/20 08:28 Calcium 10.3 mg/dL (8.4-10.2) H 10/10/20 04:32 Troponin T 0.410 ng/mL (0.00-0.029) H* 10/10/20 04:32 Triglycerides 97 mg/dL (2-149) 10/07/20 21:09 Cholesterol 118 mg/dL (50-199) 10/07/20 21:09 LDL Cholesterol Direct 38 mg/dL (50-130) L 10/07/20 21:09 HDL Cholesterol 64 mg/dL (40-59) H 10/07/20 21:09 Cholesterol/HDL Ratio 1.84 % 10/07/20 21:09 Hepatitis A IgM Ab Non-reactive (NonReactive) 10/10/20 14:24 Hep Bs Antigen Non-reactive (Negative) 10/10/20 14:24 Hep B Core IgM Ab Non-reactive (NonReactive) 10/10/20 14:24 Hepatitis C Antibody Non-reactive (NonReactive) 10/10/20 14:24 Blood Type O POSITIVE 10/10/20 14:20 Antibody Screen Negative 10/10/20 14:20 Crossmatch See Detail 10/10/20 14:20 - Diagnostic Impressions Diagnostic Impressions: Echocardiogram 10/07/20 23:22 Transthoracic Echocardiogram Indication: Stroke BP: 136/83 HR: 92 Conclusions *The left ventricular chamber size is normal. *Mild concentric left ventricular hypertrophy is observed. *The estimated ejection fraction is 50-55%. *Abnormal left ventricular diastolic function is observed. *The left atrium is severely dilated. *The right ventricular global systolic function is mildly reduced. *The right atrium is moderate to severely dilated. *No atrial septal defected is demonstrated by agitated saline contrast. *There is mild tricuspid regurgitation. *The right ventricular systolic pressure is calculated at 62 mmHg. Findings Left Ventricle: The left ventricular chamber size is normal. Mild concentric left ventricular hypertrophy is observed. Global left ventricular wall motion and contractility are within normal limits. Global left ventricular systolic function is normal. The estimated ejection fraction is 50-55%. Abnormal left ventricular diastolic function is observed. Left Atrium: The left atrium is severely dilated. Right Ventricle: The right ventricular cavity size is normal. The right ventricular global systolic function is mildly reduced. Right Atrium: The right atrium is moderate to severely dilated. No atrial septal defected is demonstrated by agitated saline contrast. Mitral Valve: The mitral valve leaflets are mildly thickened. There is mild mitral regurgitation. Tricuspid Valve: The tricuspid valve leaflets are normal. There is mild tricuspid regurgitation. The right ventricular systolic pressure is calculated at 62 mmHg. Pulmonic Valve: The pulmonic valve appears normal. There is trace pulmonic regurgitation. Pericardium: There is no pericardial effusion. Venous: The inferior vena cava is dilated. Measurements Chambers 2D Name Value Normal Range IVSd (2D) 1.44 cm (0.6 - 1.1) LVPWd (2D) 1.18 cm (0.6 - 1.1) LVIDd (2D) 5.3 cm (3.7 - 5.6) LVIDs (2D) 4.25 cm (2 - 3.8) LV FS (2D) 19.78 % - EF Teichholz (2D) 40.24 % - Ao root diameter (2D) 3.15 cm (2 - 3.7) Volumes/Mass Name Value Normal Range LA ESV SP 4CH (A/L) 111.72 ml - LA ESV SP 2CH (A/L) 109.85 ml - LA ESV BP (A/L) 111.95 ml - LA ESV BP (A/L) index 62.93 ml/m2 - LA ESV SP 4CH (MOD) 105.89 ml - LA ESV SP 2CH (MOD) 103.64 ml - LA ESV BP (MOD) 110.1 ml - LA ESV BP (MOD) index 59.2 ml/m2 - Aortic Valve Name Value Normal Range AV Vmax 2.44 m/sec - AV VTI 42.43 cm - AV peak gradient 23.82 mmHg - AV mean gradient 11.98 mmHg - LVOT diameter 2.01 cm - LVOT Vmax 1.17 m/sec - LVOT VTI 21.23 cm - LVOT peak gradient 5.51 mmHg - LVOT mean gradient 2.95 mmHg - SV LVOT 67.48 ml - MARY (continuity Vmax) 1.53 cm2 - MARY (continuity VTI) 1.59 cm2 - Ascending Ao 3.99 cm - Mitral Valve Name Value Normal Range MV PHT 48.72 msec - MR Vmax 4.9 m/sec - MVA (PHT) 4.52 cm2 - Tricuspid Valve Name Value Normal Range TR Vmax 3.7 m/sec - TR peak gradient 54.73 mmHg - RAP 8 mmHg - RVSP 62 mmHg - IVC diameter 2.24 cm (1.2 - 2.3) Pulmonic Valve/Qp:Qs Name Value Normal Range TX end-diastolic Vmax 0.86 m/sec - PV acceleration time 68.51 msec - Whaley/IV: Voiding Method Urinal IV Catheter Type [Right INT / Saline Lock Antecubital] Active Medications - Current Medications Current Medications: Generic Name Dose Route Start Last Admin Trade Name Freq PRN Reason Stop Dose Admin Acetaminophen 650 mg 10/07/20 23:14 10/10/20 21:45 Tylenol PO 650 mg Q4H PRN Administration Pain, Mild (1-3) Amlodipine Besylate 10 mg 10/08/20 08:00 10/10/20 10:00 Amlodipine PO Not Given DAILY@0800 FRANCOIS Aspirin 81 mg 10/08/20 10:00 10/10/20 09:04 Halfprin Ec PO 81 mg QDAY FRANCOIS Administration Atorvastatin Calcium 40 mg 10/08/20 22:00 10/10/20 21:47 Lipitor PO 40 mg QHS FRANCOIS Administration Bisacodyl 10 mg 10/07/20 23:14 Dulcolax [place] QDAY PRN Constipation Calcium Acetate 667 mg 10/08/20 08:00 10/10/20 17:06 Phoslo PO 667 mg TIDWM FRANCOIS Administration Cyproheptadine HCl 4 mg 10/08/20 10:00 10/10/20 10:00 Periactin PO Not Given DAILY [facility] Dextrose 0 ml 10/07/20 23:14 D50w (25gm) Syringe IV Q30MIN PRN Hypoglycemia Protocol Epoetin Theron 20,000 unit 10/08/20 19:53 Procrit IV BRYAN PRN hemodialysis Ferrous Sulfate 325 mg 10/09/20 10:00 10/10/20 21:41 Feosol PO 325 mg BID FRANCOIS Administration Folic Acid 1 mg 10/08/20 10:00 10/10/20 09:05 Folvite PO 1 mg DAILY [facility]ANCOIS Administration Sodium Chloride 1,000 mls @ 75 mls/hr 10/07/20 23:15 Nacl 0.9% 1000 Ml IV DIRECT FRANOCIS Sodium Chloride 100 mls @ 999 mls/hr 10/08/20 19:53 Nacl 0.9% IV BRYAN PRN Hypotension Insulin Human Lispro 0 unit 10/08/20 07:30 10/11/20 08:48 Humalog SUB-Q Not Given ACHS [facility] Protocol Lactobacillus Acidophilus 1 each 10/08/20 10:00 10/10/20 09:03 Lactinex PO 1 each QDAY FRANCOIS Administration Losartan Potassium 25 mg 10/08/20 10:00 10/10/20 10:00 Cozaar PO Not Given QDAY FRANCOIS Magnesium Hydroxide 30 ml 10/07/20 23:14 Milk Of Magnesia PO Q4H PRN Constipation Metoclopramide HCl 5 mg 10/07/20 23:14 Reglan PO Q6H PRN Nausea And Vomiting Metoprolol Tartrate 100 mg 10/10/20 22:00 10/10/20 21:41 Metoprolol PO 100 mg BID FRANCOIS Administration Morphine Sulfate 2 mg 10/07/20 23:14 Morphine IV Q4H PRN Pain, Moderate (4-6) Ondansetron HCl 4 mg 10/07/20 23:14 Zofran IV Q8H PRN Nausea And Vomiting Pantoprazole Sodium 40 mg 10/08/20 10:00 10/10/20 09:04 Protonix PO 40 mg QDAY FRANCOIS Administration Promethazine HCl 25 mg 10/07/20 23:14 Phenergan [place] Q6H PRN Nausea And Vomiting Sodium Chloride 10 ml 10/08/20 10:00 10/10/20 21:48 Sodium Chloride Flush Syringe 10 Ml IV 10 ml BID FRANCOIS Administration Sodium Chloride 10 ml 10/07/20 23:14 Sodium Chloride Flush Syringe 10 Ml IV PRN PRN LINE FLUSH Vancomycin HCl 125 mg 10/10/20 18:00 10/11/20 06:50 Vancomycin Po PO 125 mg Q6HR FRANCOIS Administration Nutrition/Malnutrition Assess - Dietary Evaluation Nutrition/Malnutrition Findings: Nutrition Notes Start: 10/08/20 13:04 Freq: Status: Active Protocol: Document 10/10/20 10:15 LM (Rec: 10/10/20 10:20 LM [id number]) Nutrition Notes Initial or Follow up Brief Note Current Diagnosis CKD (stage V CKD),Diabetes, Hypertension,Stroke, Hyperlipidemia Other Pertinent Diagnosis CVA Current Diet [facility] soft w/ ground meats/ consistent CHO/renal Height 5 ft 7 in Weight 74.5 kg Garibaldi Body Weight (kg) 67.27 BMI 25.7 Subjective/Other Information Pt at HD at time of visit. Diet advanced to [facility] soft per CARDIOPULMONARY SPECIALIST. Minimum of two criteria No Reduced Play Back Operator Strength Measurably Reduced (severe) Nutrition Intervention Follow-Up By: 10/12/20 Additional Comments F/U for diet education, intakes
--- NOTE | 2020-10-11 10:59 | Progress Note ---
Assessment and Plan tte reviewed - EF 50-55%, mild LVH, abnormal diastolic function, LA severely dilated, RA mod to severely dilated, mild TR, pulm HTN with RVSP 62mmHg, negative bubble study. CE elevation appears c/w NSTEMI type II. Pt noted to have significant anemia. S/p PRBC tx. Further eval/management of anemia per primary. Brain MRI shows small subacute infarctions. Neuro w/u in progress. Cont to hold home Eliquis pending neuro w/u and in setting of anemia. Recommend resumption of systemic AC if/when ok per neurology team. Pt reports full compliance with home NOAC and thus he may require transition to coumadin given recurrent CVA. The patient has been seen in conjunction with Dr. Navarro who agrees with the assessment and plan of care. - Patient Problems (1) Atrial fibrillation Current Visit: Yes Status: Acute (2) CVA (cerebral vascular accident) Current Visit: Yes Status: Suspected (3) History of CVA (cerebrovascular accident) Current Visit: Yes Status: Chronic (4) ESRD on dialysis Current Visit: Yes Status: Chronic (5) Anemia Current Visit: Yes Status: Chronic (6) History of GI bleed Current Visit: Yes Status: Chronic (7) PVD (peripheral vascular disease) Current Visit: Yes Status: Chronic (8) History of leg amputation Current Visit: Yes Status: Chronic (9) Hypertension Current Visit: Yes Status: Chronic (10) Diabetes Current Visit: Yes Status: Chronic (11) NSTEMI (non-ST elevated myocardial infarction) Current Visit: Yes Status: Acute Subjective Date of service: 10/11/20 Principal diagnosis: esrd Interval history: pt resting in bed, no current cardiac complaints. tele reviewed - in AFib HR 90s. Objective Last Vital Signs Temp 98.3 F 10/11/20 06:16 Pulse 114 H 10/11/20 08:11 Resp 18 10/11/20 08:11 BP 123/84 10/11/20 03:46 Pulse Ox 99 10/11/20 08:11 - Physical Examination General: No Apparent Distress Cardiac: Positive: irregularly irregular, S1/S2 Lungs: Positive: Decreased Breath Sounds Abdomen: Negative: Tender Skin: Negative: Rash - Labs and Meds CBC 10/11/20 Range/Units 09:36 Hgb 9.2 L (11.8-15.2) gm/dl Hct 28.1 L D (35.5-45.6) % Comprehensive Metabolic Panel 10/11/20 Range/Units 09:36 Sodium 140 (137-145) mmol/L Potassium 3.2 L (3.6-5.0) mmol/L Chloride 98.9 (98-107) mmol/L Carbon Dioxide 28 (22-30) mmol/L BUN 20 (9-20) mg/dL Creatinine 5.1 H (0.8-1.3) mg/dL Glucose 95 (75-100) mg/dL Calcium 10.0 (8.4-10.2) mg/dL - Imaging and Cardiology EKG: report reviewed, image reviewed Echo: report reviewed - Telemetry EKG Rhythm: Atrial Fibrillation
[2020-10-11] MEDS: CYPROHEPTADINE 4 MG TAB PO SCH (11:05)
[2020-10-11] MEDS: FOLIC ACID 1 MG TAB PO SCH (11:05)
[2020-10-11] MEDS: PANTOPRAZOLE 40 MG TAB PO SCH (11:05)
[2020-10-11] MEDS: CALCIUM ACETATE 667 MG CAP PO SCH ×3 (11:06→17:27)
[2020-10-11] MEDS: LOSARTAN 25 MG TAB PO SCH (11:06)
[2020-10-11] MEDS: LACTINEX CHEW TAB PO SCH (11:06)
[2020-10-11] MEDS: ASPIRIN EC 81 MG TAB PO SCH (11:06)
[2020-10-11] MEDS: FERROUS SULFATE 325 MG TAB PO SCH ×2 (11:06→21:49)
[2020-10-11] MEDS: amLODIPine 10 MG TAB PO SCH (11:10)
[2020-10-11] MEDS: MORPHINE 2 MG/1 ML INJ IV PRN (13:52)
[2020-10-12] MEDS: VANCOMYCIN 250 MG/10 ML ORAL LIQD PO SCH ×4 (01:05→17:54)
--- NOTE | 2020-10-12 07:58 | Event Note ---
Date: 10/12/20 I called patient's spouse Ms. Yue Cordero at [phone] and discussed patient's condition, test reports, treatment and discharge planning Including possible placement to acute versus subacute rehab. Ms. Turner had many questions and concerns regarding his blood thinners History of chronic C. difficile and placement issues. Encouraged her to discuss with tax services specialist as well as case management. I informed patient's nurse of the above conversation
[2020-10-12] MEDS: CALCIUM ACETATE 667 MG CAP PO SCH ×3 (09:11→17:54)
[2020-10-12] MEDS: CYPROHEPTADINE 4 MG TAB PO SCH (09:11)
[2020-10-12] MEDS: METOPROLOL TARTRATE 50 MG TAB PO SCH ×2 (09:12→22:02)
[2020-10-12] MEDS: ASPIRIN EC 81 MG TAB PO SCH (09:12)
[2020-10-12] MEDS: FOLIC ACID 1 MG TAB PO SCH (09:12)
[2020-10-12] MEDS: PANTOPRAZOLE 40 MG TAB PO SCH (09:12)
[2020-10-12] MEDS: FERROUS SULFATE 325 MG TAB PO SCH ×2 (09:12→22:02)
--- NOTE | 2020-10-12 09:13 | Progress Note ---
Assessment and Plan Impression * End stage renal disease * Acute CVA * Atrial fibrillation * Peripheral artery disease * Anemia secondary to ESRD * Secondary hyperparathyroidism Plan * Will continue HD TTS schedule * Neurology recommendations reviewed * Transfuse pRBC prn * Epogen TIW * Renal diet * Dose medications for renal function * ok to dc from renal standpoint Subjective Date of service: 10/12/20 Principal diagnosis: esrd Interval history: resting in bed today Objective - Exam Narrative Exam: General appearance: well-developed, well-nourished EENT: ATNC Respiratory: Clear to Ascultation Heart: regular, S1S2 Gastrointestinal: Present: other (PD cathter in place). Absent: normal, tenderness, distended Integumentary: no rash, warm and dry Neurologic: other (slurred speech) Musculoskeletal: Present: other (Bilateral BKA) Psychiatric: cooperative - Vital Signs Vital signs: Vital Signs - 12hr 10/11/20 10/12/20 10/12/20 23:57 04:13 08:23 Temperature 98.0 F 98.0 F 98.9 F Pulse Rate 80 92 H 99 H Respiratory 18 20 16 Rate Blood Pressure 137/96 153/95 151/94 O2 Sat by Pulse 98 99 100 Oximetry 10/12/20 09:12 Temperature Pulse Rate 69 Respiratory Rate Blood Pressure 151/94 O2 Sat by Pulse Oximetry - Lab 10/11/20 09:36 10/11/20 09:36 Most recent lab results Calcium 10.0 mg/dL (8.4-10.2) 10/11/20 09:36 Medications & Allergies - Medications Allergies/Adverse Reactions: Allergies minoxidil Allergy (Severe, Verified 07/30/13 01:36) Angioedema Home Medications: Home Medications Medication Instructions Recorded Confirmed Last Taken Type Glimepiride [Amaryl] 1 mg PO QAM #30 tablet 08/09/13 10/07/20 1 Day Ago Rx ~10/06/20 Pantoprazole [Protonix] 40 mg PO QDAY #30 tablet 08/09/13 10/07/20 1 Day Ago Rx ~10/06/20 Apixaban [Eliquis] 2.5 mg PO BID 10/07/20 10/07/20 1 Day Ago History ~10/06/20 AtorvaSTATin [Lipitor] 40 mg PO QHS 10/07/20 10/07/20 1 Day Ago History ~10/06/20 Calcium Acetate [Phoslo] 667 mg PO TID 10/07/20 10/07/20 1 Day Ago History ~10/06/20 Cyproheptadine 4 mg PO DAILY 10/07/20 10/07/20 Unknown History Folic Acid 1 mg PO DAILY 10/07/20 10/07/20 1 Day Ago History ~10/06/20 L. Acidophilus/Bifid. Animalis 1 each PO DAILY 10/07/20 10/07/20 Unknown History [Dialyvite Chewable Probiotic] Losartan [Cozaar] 25 mg PO QDAY 10/07/20 10/07/20 1 Day Ago History ~10/06/20 Metoprolol [Lopressor TAB] 50 mg PO BID 10/07/20 10/07/20 1 Day Ago History ~10/06/20 Vancomycin 1,250 mg/12.5 ml Vl 125 mg PO DAILY 10/07/20 10/07/20 1 Day Ago Hi story ~10/06/20 amLODIPine [Norvasc] 10 mg PO DAILY 10/07/20 10/07/20 1 Day Ago History ~10/06/20 Active Medications: Generic Name Dose Route Start Last Admin Trade Name Freq PRN Reason Stop Dose Admin Acetaminophen 650 mg 10/07/20 23:14 10/10/20 21:45 Tylenol PO 650 mg Q4H PRN Administration Pain, Mild (1-3) Amlodipine Besylate 10 mg 10/08/20 08:00 10/11/20 11:10 Amlodipine PO Not Given DAILY@0800 FRANCOIS Aspirin 81 mg 10/08/20 10:00 10/12/20 09:12 Halfprin Ec PO 81 mg QDAY FRANCOIS Administration Atorvastatin Calcium 40 mg 10/08/20 22:00 10/11/20 21:49 Lipitor PO 40 mg QHS FRANCOIS Administration Bisacodyl 10 mg 10/07/20 23:14 Dulcolax [place] QDAY PRN Constipation Calcium Acetate 667 mg 10/08/20 08:00 10/12/20 09:11 Phoslo PO 667 mg TIDWM FRANCOIS Administration Cyproheptadine HCl 4 mg 10/08/20 10:00 10/12/20 09:11 Periactin PO 4 mg DAILY FRANCOIS Administration Dextrose 0 ml 10/07/20 23:14 D50w (25gm) Syringe IV Q30MIN PRN Hypoglycemia Protocol Epoetin Theron 20,000 unit 10/08/20 19:53 Procrit IV BRYAN PRN hemodialysis Ferrous Sulfate 325 mg 10/09/20 10:00 10/12/20 09:12 Feosol PO 325 mg BID FRANCOIS Administration Folic Acid 1 mg 10/08/20 10:00 10/12/20 09:12 Folvite PO 1 mg DAILY FRANCOIS Administration Sodium Chloride 1,000 mls @ 75 mls/hr 10/07/20 23:15 Nacl 0.9% 1000 Ml IV DIRECT FRANCOIS Sodium Chloride 100 mls @ 999 mls/hr 10/08/20 19:53 Nacl 0.9% IV BRYAN PRN Hypotension Insulin Human Lispro 0 unit 10/08/20 07:30 10/11/20 22:05 Humalog SUB-Q Not Given ACHS [facility] Protocol Lactobacillus Acidophilus 1 each 10/08/20 10:00 10/11/20 11:06 Lactinex PO Not Given QDAY [facility] Losartan Potassium 25 mg 10/08/20 10:00 10/11/20 11:06 Cozaar PO 25 mg QDAY [facility] Administration Magnesium Hydroxide 30 ml 10/07/20 23:14 Milk Of Magnesia PO Q4H PRN Constipation Metoclopramide HCl 5 mg 10/07/20 23:14 Reglan PO Q6H PRN Nausea And Vomiting Metoprolol Tartrate 100 mg 10/10/20 22:00 10/12/20 09:12 Metoprolol PO 100 mg BID FRANCOIS Administration Morphine Sulfate 2 mg 10/07/20 23:14 10/11/20 13:52 Morphine IV 2 mg Q4H PRN Administration Pain, Moderate (4-6) Ondansetron HCl 4 mg 10/07/20 23:14 Zofran IV Q8H PRN Nausea And Vomiting Pantoprazole Sodium 40 mg 10/08/20 10:00 10/12/20 09:12 Protonix PO 40 mg QDAY [facility] Administration Promethazine HCl 25 mg 10/07/20 23:14 Phenergan [place] Q6H PRN Nausea And Vomiting Sodium Chloride 10 ml 10/08/20 10:00 10/12/20 09:13 Sodium Chloride Flush Syringe 10 Ml IV 10 ml BID FRANCOIS Administration Sodium Chloride 10 ml 10/07/20 23:14 Sodium Chloride Flush Syringe 10 Ml IV PRN PRN LINE FLUSH Vancomycin HCl 125 mg 10/10/20 18:00 10/12/20 05:48 Vancomycin Po PO 125 mg Q6HR FRANCOIS Administration
[2020-10-12] MEDS ORDERED: MAGNESIUM SULFATE 2 GM/50 ML BAG IV NR (09:30)
[2020-10-12] MEDS: INSULIN LISPRO 100 UNIT/ML VIAL 3 mL SUB-Q SCH ×4 (09:33→22:01)
[2020-10-12] MEDS: LOSARTAN 25 MG TAB PO SCH (09:34)
[2020-10-12] MEDS: amLODIPine 10 MG TAB PO SCH (09:34)
[2020-10-12] MEDS: LACTINEX CHEW TAB PO SCH (09:34)
--- NOTE | 2020-10-12 11:00 | Progress Note ---
Assessment and Plan CE elevation appears c/w NSTEMI type II. Pt noted to have significant anemia requiring PRBC tx. D/w pt's via telephone - she reports h/o "bleeding gastric ulcers" diagnosed 3 weeks ago at [facility]. She also reports h/o recurrent C. Diff. and states pt is currently having diarrhea and she is requesting pt to be retested for C. Diff. Recommend GI consultation per primary team. D/w Dr. Musa. Brain MRI shows small subacute infarctions. This is pt's 3rd stroke, per his . Neuro w/u in progress. Cont to hold home Eliquis pending neuro w/u and in setting of anemia. Recommend resumption of systemic AC if/when ok per neurology and GI teams. Pt reports full compliance with home NOAC (although some of our office records indicate that pt admitted to only taking Eliquis 2.5mg daily) and thus he may require transition to coumadin given recurrent CVA in spite of NOAC use. Additionally, compliance would be easier to monitor with Coumadin. Will defer resumption of systemic AC to neurology and GI teams. Assessment and plan discussed at length with pt's via telephone. The patient has been seen in conjunction with Dr. Navarro who agrees with the assessment and plan of care. - Patient Problems (1) Atrial fibrillation Current Visit: Yes Status: Acute (2) CVA (cerebral vascular accident) Current Visit: Yes Status: Suspected (3) History of CVA (cerebrovascular accident) Current Visit: Yes Status: Chronic (4) ESRD on dialysis Current Visit: Yes Status: Chronic (5) Anemia Current Visit: Yes Status: Chronic (6) History of GI bleed Current Visit: Yes Status: Chronic (7) PVD (peripheral vascular disease) Current Visit: Yes Status: Chronic (8) History of leg amputation Current Visit: Yes Status: Chronic (9) Hypertension Current Visit: Yes Status: Chronic (10) Diabetes Current Visit: Yes Status: Chronic (11) NSTEMI (non-ST elevated myocardial infarction) Current Visit: Yes Status: Acute Subjective Date of service: 10/12/20 Principal diagnosis: esrd Interval history: pt resting in bed, no current cardiac complaints. tele reviewed - in AFib HR 80s. Objective Last Vital Signs Temp 98.9 F 10/12/20 08:23 Pulse 69 10/12/20 09:12 Resp 16 10/12/20 08:23 BP 151/94 10/12/20 09:12 Pulse Ox 100 10/12/20 08:23 - Physical Examination General: No Apparent Distress Cardiac: Positive: irregularly irregular, S1/S2 Lungs: Positive: Decreased Breath Sounds Abdomen: Negative: Tender Skin: Negative: Rash - Imaging and Cardiology EKG: report reviewed, image reviewed Echo: report reviewed (EF 50-55%, mild LVH, abnormal diastolic function, LA severely dilated, RA mod to severely dilated, mild TR, pulm HTN with RVSP 62mmHg, negative bubble study. ) - Telemetry EKG Rhythm: Atrial Fibrillation
--- NOTE | 2020-10-12 13:50 | Progress Note ---
Assessment and Plan Assessment and plan: --History of atrial fibrillation; rate controlled Continue AV octaviano blocking agents, not on anticoagulation Secondary to severe GI bleeding requiring blood transfusion. Patient is not on anticoagulation due to h/o severe GI bleeding. Will consult GI for recommendations regarding chronic anticoagulation in this A. fib patient with recurrent CVA in the setting of history of severe GI bleeding. I discussed with GI Dr. Norris --Anemia/acute blood loss anemia; Status post 1 unit PRBC transfusion Hb improved from 6.8-9.2 Closely monitor, transfuse additional PRBC as needed --Acute CVA; Not a candidate for TPA, aspirin and statin Neurology evaluation noted and appreciated Patient was not on anticoagulation for A. fib due to Recent severe GI bleeding Decision to start anticoagulation per cardio/GI/Neurology Physical therapy occupational therapy rehabilitation --History of CVA; With residual weakness, continue PT OT supportive care MRI; small subacute infarction left centrum semiovale --End-stage renal disease; on hemodialysis Nephrology following, HD per schedule --History of GI bleeding in the past; Severe anemia, closely monitor H&H Transfuse if Hb is less than 7, GI consult as needed --Peripheral vascular disease; continue antiplatelets and statins Supportive care --History of bilateral BKA; Physical therapy occupational therapy supportive care --DVT prophylaxis; SCDs No pharmacologic anticoagulation in view of severe anemia And GI bleeding --Full CODE STATUS; We will closely monitor the patient and adjust management as needed District Resource Officer recommendations noted and appreciated DC planning per case management when medically stable Plan of care reviewed with the patient and his nurse I also discussed with insurance physician Dr. Guerrero and discussed patient's condition discharge planning Possible acute rehab versus subacute versus SNF. He requested updated most recent PT evaluation report Plan of care reviewed with the patient, his nurse and the case management History Interval history: I have seen and examined the patient at the bedside this morning Patient's chart and medications reviewed Patient received hemodialysis today PT evaluated the patient and recommended acute rehab No new complaints Vital signs reviewed Hospitalist Physical - Constitutional Vitals: Temp Pulse Resp BP Pulse Ox 98.9 F 99 H 21 151/94 100 10/12/20 08:23 10/12/20 10:00 10/12/20 10:00 10/12/20 09:12 10/12/20 08:23 General appearance: Present: mild distress, well-nourished, other (Chronically ill looking) - EENT Eyes: Present: PERRL, EOM intact - Neck Neck: Present: supple, normal ROM - Respiratory Respiratory effort: normal Respiratory: bilateral: diminished, negative: rales, rhonchi, wheezing - Cardiovascular Rhythm: regular Heart Sounds: Present: S1 & S2 - Extremities Extremities: no ischemia, abnormal (Bilateral BKA) - Abdominal General gastrointestinal: soft, non-tender, non-distended, normal bowel sounds - Integumentary Integumentary: Present: clear, warm - Psychiatric Psychiatric: appropriate mood/affect, cooperative - Neurologic Neurologic: moves all extremities HEART Score - HEART Score Troponin: Troponin T 0.410 ng/mL (0.00-0.029) H* 10/10/20 04:32 Results - Labs CBC & Chem 7: 10/11/20 09:36 10/11/20 09:36 Labs: Laboratory Last Values WBC 7.5 K/mm3 (4.5-11.0) 10/10/20 04:32 RBC 2.30 M/mm3 (3.65-5.03) L 10/10/20 04:32 Hgb 9.2 gm/dl (11.8-15.2) L 10/11/20 09:36 Hct 28.1 % (35.5-45.6) L D 10/11/20 09:36 MCV 91 fl (84-94) 10/10/20 04:32 MCH 30 pg (28-32) 10/10/20 04:32 MCHC 33 % (32-34) 10/10/20 04:32 RDW 17.5 % (13.2-15.2) H 10/10/20 04:32 Plt Count 172 K/mm3 (140-440) 10/10/20 04:32 Lymph % (Auto) 15.7 % (13.4-35.0) 10/07/20 21:09 Graves % (Auto) 8.8 % (0.0-7.3) H 10/07/20 21:09 Eos % (Auto) 5.0 % (0.0-4.3) H 10/07/20 21:09 Baso % (Auto) 1.0 % (0.0-1.8) 10/07/20 21:09 Lymph # (Auto) 0.9 K/mm3 (1.2-5.4) L 10/07/20 21:09 Graves # (Auto) 0.5 K/mm3 (0.0-0.8) 10/07/20 21:09 Eos # (Auto) 0.3 K/mm3 (0.0-0.4) 10/07/20 21:09 Baso # (Auto) 0.1 K/mm3 (0.0-0.1) 10/07/20 21:09 Seg Neutrophils % 69.5 % (40.0-70.0) 10/07/20 21:09 Seg Neutrophils # 3.8 K/mm3 (1.8-7.7) 10/07/20 21:09 PT 14.8 Sec. (12.2-14.9) 10/07/20 21:09 INR 1.15 (0.87-1.13) H 10/07/20 21:09 APTT 33.0 Sec. (24.2-36.6) 10/07/20 21:09 Thrombin Time 15.0 Sec. (15.1-19.6) L 10/07/20 21:09 Sodium 140 mmol/L (137-145) 10/11/20 09:36 Potassium 3.2 mmol/L (3.6-5.0) L 10/11/20 09:36 Chloride 98.9 mmol/L (98-107) 10/11/20 09:36 Carbon Dioxide 28 mmol/L (22-30) 10/11/20 09:36 Anion Gap 16 mmol/L 10/11/20 09:36 BUN 20 mg/dL (9-20) 10/11/20 09:36 Creatinine 5.1 mg/dL (0.8-1.3) H 10/11/20 09:36 Estimated GFR 14 ml/min 10/11/20 09:36 BUN/Creatinine Ratio 4 % 10/11/20 09:36 Glucose 95 mg/dL (75-100) 10/11/20 09:36 POC Glucose 121 mg/dL (70-105) H 10/11/20 22:50 Calcium 10.0 mg/dL (8.4-10.2) 10/11/20 09:36 Troponin T 0.410 ng/mL (0.00-0.029) H* 10/10/20 04:32 Triglycerides 97 mg/dL (2-149) 10/07/20 21:09 Cholesterol 118 mg/dL (50-199) 10/07/20 21:09 LDL Cholesterol Direct 38 mg/dL (50-130) L 10/07/20 21:09 HDL Cholesterol 64 mg/dL (40-59) H 10/07/20 21:09 Cholesterol/HDL Ratio 1.84 % 10/07/20 21:09 Hepatitis A IgM Ab Non-reactive (NonReactive) 10/10/20 14:24 Hep Bs Antigen Non-reactive (Negative) 10/10/20 14:24 Hep B Core IgM Ab Non-reactive (NonReactive) 10/10/20 14:24 Hepatitis C Antibody Non-reactive (NonReactive) 10/10/20 14:24 Blood Type O POSITIVE 10/10/20 14:20 Antibody Screen Negative 10/10/20 14:20 Crossmatch See Detail 10/10/20 14:20 Microbiology: Microbiology 10/11/20 08:38 Nares - Right MRSA Culture - Preliminary - Diagnostic Impressions Diagnostic Impressions: Echocardiogram 10/07/20 23:22 Transthoracic Echocardiogram Indication: Stroke BP: 136/83 HR: 92 Conclusions *The left ventricular chamber size is normal. *Mild concentric left ventricular hypertrophy is observed. *The estimated ejection fraction is 50-55%. *Abnormal left ventricular diastolic function is observed. *The left atrium is severely dilated. *The right ventricular global systolic function is mildly reduced. *The right atrium is moderate to severely dilated. *No atrial septal defected is demonstrated by agitated saline contrast. *There is mild tricuspid regurgitation. *The right ventricular systolic pressure is calculated at 62 mmHg. Findings Left Ventricle: The left ventricular chamber size is normal. Mild concentric left ventricular hypertrophy is observed. Global left ventricular wall motion and contractility are within normal limits. Global left ventricular systolic function is normal. The estimated ejection fraction is 50-55%. Abnormal left ventricular diastolic function is observed. Left Atrium: The left atrium is severely dilated. Right Ventricle: The right ventricular cavity size is normal. The right ventricular global systolic function is mildly reduced. Right Atrium: The right atrium is moderate to severely dilated. No atrial septal defected is demonstrated by agitated saline contrast. Mitral Valve: The mitral valve leaflets are mildly thickened. There is mild mitral regurgitation. Tricuspid Valve: The tricuspid valve leaflets are normal. There is mild tricuspid regurgitation. The right ventricular systolic pressure is calculated at 62 mmHg. Pulmonic Valve: The pulmonic valve appears normal. There is trace pulmonic regurgitation. Pericardium: There is no pericardial effusion. Venous: The inferior vena cava is dilated. Measurements Chambers 2D Name Value Normal Range IVSd (2D) 1.44 cm (0.6 - 1.1) LVPWd (2D) 1.18 cm (0.6 - 1.1) LVIDd (2D) 5.3 cm (3.7 - 5.6) LVIDs (2D) 4.25 cm (2 - 3.8) LV FS (2D) 19.78 % - EF Teichholz (2D) 40.24 % - Ao root diameter (2D) 3.15 cm (2 - 3.7) Volumes/Mass Name Value Normal Range LA ESV SP 4CH (A/L) 111.72 ml - LA ESV SP 2CH (A/L) 109.85 ml - LA ESV BP (A/L) 111.95 ml - LA ESV BP (A/L) index 62.93 ml/m2 - LA ESV SP 4CH (MOD) 105.89 ml - LA ESV SP 2CH (MOD) 103.64 ml - LA ESV BP (MOD) 110.1 ml - LA ESV BP (MOD) index 59.2 ml/m2 - Aortic Valve Name Value Normal Range AV Vmax 2.44 m/sec - AV VTI 42.43 cm - AV peak gradient 23.82 mmHg - AV mean gradient 11.98 mmHg - LVOT diameter 2.01 cm - LVOT Vmax 1.17 m/sec - LVOT VTI 21.23 cm - LVOT peak gradient 5.51 mmHg - LVOT mean gradient 2.95 mmHg - SV LVOT 67.48 ml - MARY (continuity Vmax) 1.53 cm2 - MARY (continuity VTI) 1.59 cm2 - Ascending Ao 3.99 cm - Mitral Valve Name Value Normal Range MV PHT 48.72 msec - MR Vmax 4.9 m/sec - MVA (PHT) 4.52 cm2 - Tricuspid Valve Name Value Normal Range TR Vmax 3.7 m/sec - TR peak gradient 54.73 mmHg - RAP 8 mmHg - RVSP 62 mmHg - IVC diameter 2.24 cm (1.2 - 2.3) Pulmonic Valve/Qp:Qs Name Value Normal Range VT end-diastolic Vmax 0.86 m/sec - PV acceleration time 68.51 msec - Whaley/IV: Voiding Method Urinal IV Catheter Type [Right INT / Saline Lock Antecubital] Active Medications - Current Medications Current Medications: Generic Name Dose Route Start Last Admin Trade Name Freq PRN Reason Stop Dose Admin Acetaminophen 650 mg 10/07/20 23:14 10/10/20 21:45 Tylenol PO 650 mg Q4H PRN Administration Pain, Mild (1-3) Amlodipine Besylate 10 mg 10/08/20 08:00 10/12/20 09:34 Amlodipine PO Not Given DAILY@0800 FRANCOIS Aspirin 81 mg 10/08/20 10:00 10/12/20 09:12 Halfprin Ec PO 81 mg QDAY FRANCOIS Administration Atorvastatin Calcium 40 mg 10/08/20 22:00 10/11/20 21:49 Lipitor PO 40 mg QHS FRANCOIS Administration Bisacodyl 10 mg 10/07/20 23:14 Dulcolax [place] QDAY PRN Constipation Calcium Acetate 667 mg 10/08/20 08:00 10/12/20 11:53 Phoslo PO Not Given TIDWM FRANCOIS Cyproheptadine HCl 4 mg 10/08/20 10:00 10/12/20 09:11 Periactin PO 4 mg DAILY FRANCOIS Administration Dextrose 0 ml 10/07/20 23:14 D50w (25gm) Syringe IV Q30MIN PRN Hypoglycemia Protocol Epoetin Theron 20,000 unit 10/08/20 19:53 Procrit IV BRYAN PRN hemodialysis Ferrous Sulfate 325 mg 10/09/20 10:00 10/12/20 09:12 Feosol PO 325 mg BID FRANCOIS Administration Folic Acid 1 mg 10/08/20 10:00 10/12/20 09:12 Folvite PO 1 mg DAILY FRANCOIS Administration Sodium Chloride 1,000 mls @ 75 mls/hr 10/07/20 23:15 Nacl 0.9% 1000 Ml IV DIRECT FRANCOIS Sodium Chloride 100 mls @ 999 mls/hr 10/08/20 19:53 Nacl 0.9% IV BRYAN PRN Hypotension Magnesium Sulfate 2 gm in 50 mls @ 25 mls/hr 10/12/20 09:30 Magnesium Sulfate 2gm/50ml IV 10/12/20 15:00 ONCE NR Insulin Human Lispro 0 unit 10/08/20 07:30 10/12/20 11:53 Humalog SUB-Q Not Given ACHS [facility] Protocol Lactobacillus Acidophilus 1 each 10/08/20 10:00 10/12/20 09:34 Lactinex PO Not Given QDAY [facility] Losartan Potassium 25 mg 10/08/20 10:00 10/12/20 09:34 Cozaar PO Not Given QDAY [facility] Magnesium Hydroxide 30 ml 10/07/20 23:14 Milk Of Magnesia PO Q4H PRN Constipation Metoclopramide HCl 5 mg 10/07/20 23:14 Reglan PO Q6H PRN Nausea And Vomiting Metoprolol Tartrate 100 mg 10/10/20 22:00 10/12/20 09:12 Metoprolol PO 100 mg BID FRANCOIS Administration Morphine Sulfate 2 mg 10/07/20 23:14 10/11/20 13:52 Morphine IV 2 mg Q4H PRN Administration Pain, Moderate (4-6) Ondansetron HCl 4 mg 10/07/20 23:14 Zofran IV Q8H PRN Nausea And Vomiting Pantoprazole Sodium 40 mg 10/08/20 10:00 10/12/20 09:12 Protonix PO 40 mg QDAY FRANCOIS Administration Promethazine HCl 25 mg 10/07/20 23:14 Phenergan [place] Q6H PRN Nausea And Vomiting Sodium Chloride 10 ml 10/08/20 10:00 10/12/20 09:13 Sodium Chloride Flush Syringe 10 Ml IV 10 ml BID FRANCOIS Administration Sodium Chloride 10 ml 10/07/20 23:14 Sodium Chloride Flush Syringe 10 Ml IV PRN PRN LINE FLUSH Vancomycin HCl 125 mg 10/10/20 18:00 10/12/20 05:48 Vancomycin Po PO 125 mg Q6HR FRANCOIS Administration Nutrition/Malnutrition Assess - Dietary Evaluation Nutrition/Malnutrition Findings: Nutrition Notes Start: 10/08/20 13:04 Freq: Status: Active Protocol: Document 10/12/20 12:32 SAM (Rec: 10/12/20 12:36 SAM [id number]) Co-Sign 10/12/20 12:32 MITRA Nutrition Notes Initial or Follow up Reassessment Current Diagnosis CKD (stage V CKD),Diabetes, Hypertension,Stroke, Hyperlipidemia Other Pertinent Diagnosis CVA Current Diet Mech soft w/ ground meats/ consistent CHO/renal Labs/Tests 10/11 K 3.2 Cr 5.1 Pertinent Medications Folic Acid Feosol Height 5 ft 7 in Weight 74.5 kg [place] Body Weight (kg) 67.27 BMI 25.7 Weight Status Appropriate Subjective/Other Information F/U for diet education and intakes. Pt at HD at time of visit. Per RN, pt consuming 100% meals. Percent of energy/protein needs met: 100%/100% Burn Absent Trauma Absent GI Symptoms None Food Allergy No Current % PO Good (75-100%) Minimum of two criteria No Reduced Sewing Machine Tester Strength Measurably Reduced (severe) #1 Nutrition Diagnosis Inadequate oral intake As Evidenced by Signs and Symptoms pt consuming 100% meals Diagnosis Progress(for reassessment Improved documentation) Is patient on ventilator? No Is Patient Ambulatory and/or Out of Bed No REE-([facility]-confined to bed) 1750.368 Calculation Used for Recommendations [facility] Additional Notes Pro needs >1.2g/kg: >91g/day Fluid needs 1-1.5L/day Nutrition Intervention Change Diet Order: Continue Goal #1 Meet at least 80% energy and protein needs via PO intakes Anticipated Discharge Needs: Renal/Consistent CHO Follow-Up By: 10/17/20 Additional Comments F/U for stroke diet education, intakes
--- NOTE | 2020-10-12 18:46 | Gastroenterology Consultation ---
History of Present Illness - Reason for Consult Consult date: 10/12/20 anemia Requesting physician: DELMY CARTER - History of Present Illness This is a 74 yo male with pmh of HTN, DM, CVA, recent b/l BKA, PAD, afib, h/o refractory C diff, and recent [place] [facility] [place] for GI bleed with gastric ulcer admitted for recurrent stroke. GI consulted for evaluation of anemia. Patient seen by bedside with his on the phone. Patient has not had any st ools today per nursing. Denies any abdominal pain, nausea/vomiting, or melena. Per chart review, patient had h/o refractory C diff with multiple courses of vancomycin with prolonged taper, bezlotoxumab infusion in 01/2020, and FMT with Dr. Alvarez in 03/2020, which showed normal colon exam on colonoscopy. Patient had EGD in earlier this month [place] [facility] [place] Aden for GI bleed with melena and Hgb down to 5. EGD showed gastric ulcer, gastritis, and multiple duodenal ulcers. Patient was previously on eliquis but was held due to recent GI bleed. Medication list reviewed. Past History Past Medical History: atrial fib, diabetes, GERD, hypertension, hyperlipidemia, stroke, other (GI bleed) Past Surgical History: No surgical history Social history: no significant social history Family history: no significant family history Medications and Allergies Allergies Allergy/AdvReac Type Severity Reaction Status Date / Time minoxidil Allergy Severe Angioedema Verified 07/30/13 01:36 Home Medications Medication Instructions Recorded Confirmed Last Taken Type Glimepiride [Amaryl] 1 mg PO QAM #30 tablet 08/09/13 10/07/20 1 Day Ago Rx ~10/06/20 Pantoprazole [Protonix] 40 mg PO QDAY #30 tablet 08/09/13 10/07/20 1 Day Ago Rx ~10/06/20 Apixaban [Eliquis] 2.5 mg PO BID 10/07/20 10/07/20 1 Day Ago History ~10/06/20 AtorvaSTATin [Lipitor] 40 mg PO QHS 10/07/20 10/07/20 1 Day Ago History ~10/06/20 Calcium Acetate [Phoslo] 667 mg PO TID 10/07/20 10/07/20 1 Day Ago History ~10/06/20 Cyproheptadine 4 mg PO DAILY 10/07/20 10/07/20 Unknown History Folic Acid 1 mg PO DAILY 10/07/20 10/07/20 1 Day Ago History ~10/06/20 L. Acidophilus/Bifid. Animalis 1 each PO DAILY 10/07/20 10/07/20 Unknown History [Dialyvite Chewable Probiotic] Losartan [Cozaar] 25 mg PO QDAY 10/07/20 10/07/20 1 Day Ago History ~10/06/20 Metoprolol [Lopressor TAB] 50 mg PO BID 10/07/20 10/07/20 1 Day Ago History ~10/06/20 Vancomycin 1,250 mg/12.5 ml Vl 125 mg PO DAILY 10/07/20 10/07/20 1 Day Ago History ~10/06/20 amLODIPine [Norvasc] 10 mg PO DAILY 10/07/20 10/07/20 1 Day Ago History ~10/06/20 Active Meds: Active Medications Acetaminophen (Tylenol) 650 mg PO Q4H PRN PRN Reason: Pain, Mild (1-3) Last Admin: 10/10/20 21:45 Dose: 650 mg Documented by: Amlodipine Besylate (Amlodipine) 10 mg PO DAILY@0800 [facility] Last Admin: 10/12/20 09:34 Dose: Not Given Documented by: Aspirin (Halfprin Ec) 81 mg PO QDAY [facility] Last Admin: 10/12/20 09:12 Dose: 81 mg Documented by: Atorvastatin Calcium (Lipitor) 40 mg PO QHS [facility] Last Admin: 10/11/20 21:49 Dose: 40 mg Documented by: Bisacodyl (Dulcolax) 10 mg AL QDAY PRN PRN Reason: Constipation Calcium Acetate (Phoslo) 667 mg PO TIDWM [facility] Last Admin: 10/12/20 17:54 Dose: 667 mg Documented by: Cyproheptadine HCl (Periactin) 4 mg PO DAILY [facility] Last Admin: 10/12/20 09:11 Dose: 4 mg Documented by: Dextrose (D50w (25gm) Syringe) 0 ml IV Q30MIN PRN; Protocol PRN Reason: Hypoglycemia Epoetin Theron (Procrit) 20,000 unit IV BRYAN PRN PRN Reason: hemodialysis Ferrous Sulfate (Feosol) 325 mg PO BID [facility] Last Admin: 10/12/20 09:12 Dose: 325 mg Documented by: Folic Acid (Folvite) 1 mg PO DAILY [facility] Last Admin: 10/12/20 09:12 Dose: 1 mg Documented by: Sodium Chloride (Nacl 0.9%) 100 mls @ 999 mls/hr IV BRYAN PRN PRN Reason: Hypotension Insulin Human Lispro (Humalog) 0 unit SUB-Q ACHS [facility]; Protocol Last Admin: 10/12/20 16:56 Dose: Not Given Documented by: Lactobacillus Acidophilus (Lactinex) 1 each PO QDAY [facility] Last Admin: 10/12/20 09:34 Dose: Not Given Documented by: Losartan Potassium (Cozaar) 25 mg PO QDAY [facility] Last Admin: 10/12/20 09:34 Dose: Not Given Documented by: Magnesium Hydroxide (Milk Of Magnesia) 30 ml PO Q4H PRN PRN Reason: Constipation Metoclopramide HCl (Reglan) 5 mg PO Q6H PRN PRN Reason: Nausea And Vomiting Metoprolol Tartrate (Metoprolol) 100 mg PO BID [facility] Last Admin: 10/12/20 09:12 Dose: 100 mg Documented by: Morphine Sulfate (Morphine) 2 mg IV Q4H PRN PRN Reason: Pain, Moderate (4-6) Last Admin: 10/11/20 13:52 Dose: 2 mg Documented by: Ondansetron HCl (Zofran) 4 mg IV Q8H PRN PRN Reason: Nausea And Vomiting Pantoprazole Sodium (Protonix) 40 mg PO QDAY [facility] Last Admin: 10/12/20 09:12 Dose: 40 mg Documented by: Promethazine HCl (Phenergan) 25 mg AL Q6H PRN PRN Reason: Nausea And Vomiting Sodium Chloride (Sodium Chloride Flush Syringe 10 Ml) 10 ml IV BID [facility] Last Admin: 10/12/20 09:13 Dose: 10 ml Documented by: Sodium Chloride (Sodium Chloride Flush Syringe 10 Ml) 10 ml IV PRN PRN PRN Reason: LINE FLUSH Vancomycin HCl (Vancomycin Po) 125 mg PO Q6HR [facility] Last Admin: 10/12/20 17:54 Dose: 125 mg Documented by: Review of Systems - Review of Systems All systems: negative Constitutional: no weight loss, no weight gain Cardiovascular: no chest pain, no edema Gastrointestinal: diarrhea, no abdominal pain, no nausea, no vomiting, no constipation Neurological: paralysis, sensory deficit Endocrine: no cold intolerance Hematologic/Lymphatic: no easy bruising Exam - Constitutional Vital Signs: Temp Pulse Resp BP Pulse Ox 98.6 F 86 20 112/68 99 10/12/20 16:59 10/12/20 16:59 10/12/20 15:22 10/12/20 16:59 10/12/20 10:15 General appearance: no acute distress - EENT ENT: hearing intact - Neck Neck: supple - Respiratory Respiratory effort: normal - Cardiovascular Rhythm: regular Heart Sounds: Present: S1 & S2 - Gastrointestinal General gastrointestinal: Present: soft, non-tender, non-distended, normal bowel sounds - Integumentary Integumentary: Present: clear, warm - Neurologic Neurological: alert and oriented x3 - Labs CBC & Chem 7: 10/11/20 09:36 10/11/20 09:36 Lab Results: Laboratory Results - last 24 hr 10/10/20 10/11/20 10/12/20 14:20 22:50 15:31 POC Glucose 121 H Magnesium 1.60 L Blood Type O POSITIVE Antibody Screen Negative Crossmatch See Detail 10/12/20 16:38 POC Glucose 111 H Magnesium Blood Type Antibody Screen Crossmatch Assessment and Plan This is a 74 yo male with pmh of HTN, DM, CVA, recent b/l BKA, PAD, afib, h/o refractory C diff, and recent [place] [facility] [place] for GI bleed with gastric ulcer admitted for recurrent stroke. GI consulted for evaluation of anemia. # H/o refractory C diff - s/p multiple courses of PO vancomycin, with prolonged taper, bezlotoxumab infusion in 01/2020, and FMT with Dr. Alvarez in 03/2020, which showed normal colon exam on colonoscopy. - per nursing, no BM today. - continue with PO vancomycin for ppx. # Anemia - Recent GI bleed during [place] [facility] [place]. Records indicating gastric ulcer and duodenal ulcers seen on EGD. Hgb was down to 5 at that time with melena. - currently no signs of active GI bleeding. 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 Anticoagulation was held, previously was on eliquis due to recent GI bleed. Ideally would need anticoagulation given recurrent stroke. Rec - will plan for EGD tomorrow to evaluate gastric ulcer and for healing. It appears that last EGD was done on 09/15/2020 and it has been about 4 weeks. - recommend evaluation for Watchman's procedure for afib given recent GI bleed. - keep NPO MN. - Patient Problems (1) Anemia Current Visit: Yes Status: Chronic
[2020-10-12] MEDS: ACETAMINOPHEN 325 MG TAB PO PRN (22:06)
[2020-10-13] MEDS: VANCOMYCIN 250 MG/10 ML ORAL LIQD PO SCH ×4 (00:26→17:39)
[2020-10-13] MEDS: INSULIN LISPRO 100 UNIT/ML VIAL 3 mL SUB-Q SCH ×4 (08:08→22:29)
[2020-10-13] MEDS: CALCIUM ACETATE 667 MG CAP PO SCH ×3 (08:09→17:39)
[2020-10-13] MEDS: amLODIPine 10 MG TAB PO SCH (08:09)
--- NOTE | 2020-10-13 12:28 | Progress Note ---
Assessment and Plan GI w/u in progress - pt for endoscopy today. Brain MRI shows small subacute infarctions. This is pt's 3rd stroke, per his . Neuro w/u in progress. Cont to hold home Eliquis pending neuro w/u and in setting of anemia. Recommend resumption of systemic AC if/when ok per neurology and GI teams. Pt reports full compliance with home NOAC (although some of our office records indicate that pt admitted to only taking Eliquis 2.5mg daily) and thus he may require transition to coumadin given recurrent CVA in spite of NOAC use. Additionally, compliance would be easier to monitor with Coumadin. Will defer resumption of systemic AC to neurology and GI teams. The patient has been seen in conjunction with Dr. Navarro who agrees with the a ssessment and plan of care. - Patient Problems (1) Atrial fibrillation Current Visit: Yes Status: Acute (2) CVA (cerebral vascular accident) Current Visit: Yes Status: Suspected (3) History of CVA (cerebrovascular accident) Current Visit: Yes Status: Chronic (4) ESRD on dialysis Current Visit: Yes Status: Chronic (5) Anemia Current Visit: Yes Status: Chronic (6) History of GI bleed Current Visit: Yes Status: Chronic (7) PVD (peripheral vascular disease) Current Visit: Yes Status: Chronic (8) History of leg amputation Current Visit: Yes Status: Chronic (9) Hypertension Current Visit: Yes Status: Chronic (10) Diabetes Current Visit: Yes Status: Chronic (11) NSTEMI (non-ST elevated myocardial infarction) Current Visit: Yes Status: Acute Plan to address problem: suspect type II Subjective Date of service: 10/13/20 Principal diagnosis: esrd Interval history: pt for endoscopy today. tele reviewed - in AFib HR 80s - 100s overnight. Objective Last Vital Signs Temp 98.4 F 10/13/20 07:38 Pulse 74 10/13/20 10:00 Resp 19 10/13/20 10:00 BP 139/83 10/13/20 07:38 Pulse Ox 98 10/13/20 07:38 - Physical Examination General: No Apparent Distress Cardiac: Positive: irregularly irregular, S1/S2 Lungs: Positive: Decreased Breath Sounds Abdomen: Negative: Tender Skin: Negative: Rash - Imaging and Cardiology EKG: report reviewed, image reviewed Echo: report reviewed (EF 50-55%, mild LVH, abnormal diastolic function, LA severely dilated, RA mod to severely dilated, mild TR, pulm HTN with RVSP 62mmHg, negative bubble study. ) - Telemetry EKG Rhythm: Atrial Fibrillation
--- NOTE | 2020-10-13 12:49 | Progress Note ---
Assessment and Plan Impression * End stage renal disease * Acute CVA * Atrial fibrillation * Peripheral artery disease * Anemia secondary to ESRD * Secondary hyperparathyroidism Plan * Will continue HD TTS schedule * Neurology recommendations reviewed * Transfuse pRBC prn * Epogen TIW * Renal diet * Dose medications for renal function * ok to dc from renal standpoint Subjective Date of service: 10/13/20 Principal diagnosis: esrd Interval history: resting in bed today Objective - Exam Narrative Exam: General appearance: well-developed, well-nourished EENT: ATNC Respiratory: Clear to Ascultation Heart: regular, S1S2 Gastrointestinal: Present: other (PD cathter in place). Absent: normal, tenderness, distended Integumentary: no rash, warm and dry Neurologic: other (slurred speech) Musculoskeletal: Present: other (Bilateral BKA) Psychiatric: cooperative - Vital Signs Vital signs: Vital Signs - 12hr 10/13/20 10/13/20 10/13/20 04:34 07:38 10:00 Temperature 97.8 F 98.4 F Pulse Rate 74 92 H 82 Pulse Rate [ 74 From Monitor] Pulse Rate [ 74 Radial] Respiratory 17 17 19 Rate Blood Pressure 131/83 139/83 O2 Sat by Pulse 98 98 Oximetry - Lab 10/11/20 09:36 10/11/20 09:36 Most recent lab results Calcium 10.0 mg/dL (8.4-10.2) 10/11/20 09:36 Magnesium 1.60 mg/dL (1.7-2.3) L 10/12/20 15:31 Medications & Allergies - Medications Allergies/Adverse Reactions: Allergies minoxidil Allergy (Severe, Verified 07/30/13 01:36) Angioedema Home Medications: Home Medications Medication Instructions Recorded Confirmed Last Taken Type Glimepiride [Amaryl] 1 mg PO QAM #30 tablet 08/09/13 10/07/20 1 Day Ago Rx ~10/06/20 Pantoprazole [Protonix] 40 mg PO QDAY #30 tablet 08/09/13 10/07/20 1 Day Ago Rx ~10/06/20 Apixaban [Eliquis] 2.5 mg PO BID 10/07/20 10/07/20 1 Day Ago History ~10/06/20 AtorvaSTATin [Lipitor] 40 mg PO QHS 10/07/20 10/07/20 1 Day Ago History ~10/06/20 Calcium Acetate [Phoslo] 667 mg PO TID 10/07/20 10/07/20 1 Day Ago History ~10/06/20 Cyproheptadine 4 mg PO DAILY 10/07/20 10/07/20 Unknown History Folic Acid 1 mg PO DAILY 10/07/20 10/07/20 1 Day Ago History ~10/06/20 L. Acidophilus/Bifid. Animalis 1 each PO DAILY 10/07/20 10/07/20 Unknown History [Dialyvite Chewable Probiotic] Losartan [Cozaar] 25 mg PO QDAY 10/07/20 10/07/20 1 Day Ago History ~10/06/20 Metoprolol [Lopressor TAB] 50 mg PO BID 10/07/20 10/07/20 1 Day Ago History ~10/06/20 Vancomycin 1,250 mg/12.5 ml Vl 125 mg PO DAILY 10/07/20 10/07/20 1 Day Ago History ~10/06/20 amLODIPine [Norvasc] 10 mg PO DAILY 10/07/20 10/07/20 1 Day Ago History ~10/06/20 Active Medications: Generic Name Dose Route Start Last Admin Trade Name Freq PRN Reason Stop Dose Admin Acetaminophen 650 mg 10/07/20 23:14 10/12/20 22:06 Tylenol PO 650 mg Q4H PRN Administration Pain, Mild (1-3) Amlodipine Besylate 10 mg 10/08/20 08:00 10/13/20 08:09 Amlodipine PO Not Given DAILY@0800 [facility] Aspirin 81 mg 10/08/20 10:00 10/12/20 09:12 Halfprin Ec PO 81 mg QDAY [facility] Administration Atorvastatin Calcium 40 mg 10/08/20 22:00 10/12/20 22:02 Lipitor PO 40 mg QHS [facility] Administration Bisacodyl 10 mg 10/07/20 23:14 Dulcolax DE QDAY PRN Constipation Calcium Acetate 667 mg 10/08/20 08:00 10/13/20 08:09 Phoslo PO Not Given TIDWM [facility] Cyproheptadine HCl 4 mg 10/08/20 10:00 10/12/20 09:11 Periactin PO 4 mg DAILY [facility] Administration Dextrose 0 ml 10/07/20 23:14 D50w (25gm) Syringe IV Q30MIN PRN Hypoglycemia Protocol Epoetin Theron 20,000 unit 10/08/20 19:53 Procrit IV BRYAN PRN hemodialysis Ferrous Sulfate 325 mg 10/09/20 10:00 10/12/20 22:02 Feosol PO 325 mg BID [facility] Administration Folic Acid 1 mg 10/08/20 10:00 10/12/20 09:12 Folvite PO 1 mg DAILY [facility] Administration Sodium Chloride 100 mls @ 999 mls/hr 10/08/20 19:53 Nacl 0.9% IV BRYAN PRN Hypotension Insulin Human Lispro 0 unit 10/08/20 07:30 10/13/20 12:21 Humalog SUB-Q Not Given ACHS [facility] Protocol Lactobacillus Acidophilus 1 each 10/08/20 10:00 10/12/20 09:34 Lactinex PO Not Given QDAY [facility] Losartan Potassium 25 mg 10/08/20 10:00 10/12/20 09:34 Cozaar PO Not Given QDAY [facility] Magnesium Hydroxide 30 ml 10/07/20 23:14 Milk Of Magnesia PO Q4H PRN Constipation Metoclopramide HCl 5 mg 10/07/20 23:14 Reglan PO Q6H PRN Nausea And Vomiting Metoprolol Tartrate 100 mg 10/10/20 22:00 10/12/20 22:02 Metoprolol PO 100 mg BID [facility] Administration Morphine Sulfate 2 mg 10/07/20 23:14 10/11/20 13:52 Morphine IV 2 mg Q4H PRN Administration Pain, Moderate (4-6) Ondansetron HCl 4 mg 10/07/20 23:14 Zofran IV Q8H PRN Nausea And Vomiting Pantoprazole Sodium 40 mg 10/08/20 10:00 10/12/20 09:12 Protonix PO 40 mg QDAY [facility] Administration Promethazine HCl 25 mg 10/07/20 23:14 Phenergan DE Q6H PRN Nausea And Vomiting Sodium Chloride 10 ml 10/08/20 10:00 10/12/20 22:03 Sodium Chloride Flush Syringe 10 Ml IV 10 ml BID [facility] Administration Sodium Chloride 10 ml 10/07/20 23:14 Sodium Chloride Flush Syringe 10 Ml IV PRN PRN LINE FLUSH Vancomycin HCl 125 mg 10/10/20 18:00 10/13/20 05:56 Vancomycin Po PO 125 mg Q6HR [facility] Administration
[2020-10-13] MEDS: ASPIRIN EC 81 MG TAB PO SCH (13:56)
[2020-10-13] MEDS: FOLIC ACID 1 MG TAB PO SCH (13:56)
[2020-10-13] MEDS: LOSARTAN 25 MG TAB PO SCH (13:56)
[2020-10-13] MEDS: FERROUS SULFATE 325 MG TAB PO SCH ×2 (13:56→21:07)
[2020-10-13] MEDS: LACTINEX CHEW TAB PO SCH (13:56)
[2020-10-13] MEDS: METOPROLOL TARTRATE 50 MG TAB PO SCH ×2 (13:57→21:07)
[2020-10-13] MEDS: PANTOPRAZOLE 40 MG TAB PO SCH (13:57)
[2020-10-13] MEDS: CYPROHEPTADINE 4 MG TAB PO SCH (13:57)
--- NOTE | 2020-10-13 15:02 | Anesthesia Day of Surgery ---
Anesthesia Day of Surgery - Day of Surgery Patient Examined: Yes Patient H&P Reviewed: Yes Patient is NPO: Yes
[2020-10-13] MEDS ORDERED: SODIUM CHLORIDE 0.9% 1000 ML 1,000 ML ONE (15:07)
--- NOTE | 2020-10-13 15:09 | Anesthesia Consultation ---
Anesthesia Consult and Med Hx Date of service: 10/13/20 - Airway Anesthetic Teeth Evaluation: Good ROM Head & Neck: Adequate Mental/Hyoid Distance: Adequate Mallampati Class: Class III Intubation Access Assessment: Probably Good - Pre-Operative Health Status ASA Pre-Surgery Classification: ASA3 Proposed Anesthetic Plan: MAC - Pulmonary Hx Smoking: No Hx Asthma: No COPD: No Hx Pneumonia: No Hx Sleep Apnea: No - Cardiovascular System Hx Hypertension: Yes Hx Coronary Artery Disease: No Hx Heart Attack/AMI: Yes (Type II STEMI) Hx Angina: No Hx Percutaneous Transluminal Coronary Angioplasty (PTCA): No Hx Cardia Arrhythmia: Yes (A-Fib) Hx Pacemaker: No Hx Internal Defibrillator: No Hx Valvular Heart Disease: No Hx Heart Murmur: No Hx Peripheral Vascular Disease: Yes - Central Nervous System Hx Seizures: No CVA: Yes Hx Psychiatric Problems: No - Gastrointestinal Hx Ulcer: Yes (Hx GI bleed) Hx Gastroesophageal Reflux Disease: Yes - Endocrine Hx Renal Disease: No Hx End Stage Renal Disease: Yes Hx Cirrhosis: No Hx Liver Disease: No Hx Hypothyroidism: No Hx Hyperthyroidism: No - Hematic Hx Anemia: Yes - Other Systems Hx Cancer: No - Additional Comments Anesthesia Medical History Comments: ECHO [id number]
[2020-10-13] MEDS ORDERED: propofoL 200 MG/20 ML VIAL IV ONE (16:01)
--- NOTE | 2020-10-13 16:43 | Operative Report ---
Operative Report Operative Report: Date:10/13/2020 Pre procedure diagnosis:recent GI bleed, gastric ulcer Post procedure diagnosis:antral gastric ulcer, gastritis, duodenitis Procedure: Esophagogastroduodenoscopy with biopsies Endoscopist: Donal Norris MD Medications: Per anesthesia- see separate records for details Complications:none Estimated blood loss: None After careful discussion of the nature and purpose of the procedure, details of the technique, risks, benefits and alternatives, the patient gave consent. The patient was placed in the left lateral decubitus position and medicated by anesthesia- see separate records for details. The tip of the olympus video upper scope was passed per orum under direct view through the mouth and into the esophagus, stomach and duodenum. The scope was advanced to the secondportion of the duodenum without difficulty. The second portion of the duodenumrevealed normal findings. The bulb revealed erythematous edematous mucosa. The scope was withdrawn back into the stomach and the stomach gently insufflated with air. The antrum revealed erythematous edematous mucosa. There was a small clean based ulcer in the antrum. No high risk stigmata noted. The scope was then retroflexed and partially withdrawn to inspect the proximal stomach. The cardia, fundus, and gastric body appeared normal. Biopsies were obtained from antrum and body. The scope was then withdrawn in the forward view. The EG junction was at 38 cm. The esophagus was normal. The procedure was well tolerated and the patient was observed in the GI recovery unit. IMPRESSION: 1. Antral gastritis with a small clean based ulcer without high risk stigmata. Biopsies obtained from the antrum and body. 2. Duodenitis in the bulb. 3. Normal esophagus exam. 4. No signs of active GI bleeding. Plan: 1. Resume diet. 2. Monitor H/H. 3. Resume anticoagulation as needed for afib and CVA. Recommend consideration for Watchman's procedure. 4. Spoke with [employer] service and updated on the phone. 5. Increased dose of protonix to bid. Continue for 6-8 weeks.
[2020-10-13] MEDS ORDERED: SODIUM CHLORIDE 0.9% 1000 ML 1,000 ML IV SCH ×2 (16:45→17:15)
--- NOTE | 2020-10-13 16:52 | Post Anesthesia Evaluation ---
- Post Anesthesia Evaluation Patient Participated: Yes Airway Patent: Yes Stable Respiratory Function: Yes Nausea/Vomiting: No Temp > 96.8F: Yes Pain Manageable: Yes Adequeate Hydration: Yes Anesthesia Complications: No Block Receding Appropriately: Not Applicable Patient on Ventilator: No
[2020-10-13] MEDS: MORPHINE 2 MG/1 ML INJ IV PRN (20:08)
--- NOTE | 2020-10-13 21:44 | Progress Note ---
Assessment and Plan Assessment and plan: Consulted GI for recommendations regarding chronic anticoagulation in this A. fib patient with recurrent CVA in the setting of history of severe GI bleeding. GI scheduled for EGD today --History of atrial fibrillation; rate controlled Continue AV octaviano blocking agents, not on anticoagulation Secondary to severe GI bleeding requiring blood transfusion. Patient is not on anticoagulation due to h/o severe GI bleeding. --Anemia/acute blood loss anemia; Status post 1 unit PRBC transfusion Hb improved from 6.8-9.2 Closely monitor, transfuse additional PRBC as needed --Acute CVA; Not a candidate for TPA, aspirin and statin Neurology evaluation noted and appreciated Patient was not on anticoagulation for A. fib due to Recent severe GI bleeding Decision to start anticoagulation per cardio/GI/Neurology Physical therapy occupational therapy rehabilitation --History of CVA; With residual weakness, continue PT OT supportive care MRI; small subacute infarction left centrum semiovale --End-stage renal disease; on hemodialysis Nephrology following, HD per schedule --History of GI bleeding in the past; Severe anemia, closely monitor H&H Transfuse if Hb is less than 7, GI consult as needed --Peripheral vascular disease; continue antiplatelets and statins Supportive care --History of bilateral BKA; Physical therapy occupational therapy supportive care --DVT prophylaxis; SCDs No pharmacologic anticoagulation in view of severe anemia And GI bleeding --Full CODE STATUS; We will closely monitor the patient and adjust management as needed [employer] Supervisor Maintenance recommendations noted and appreciated DC planning per case management when medically stable Plan of care reviewed with the patient and his nurse 10/12/2020 P2P:I also discussed with insurance physician Dr. Guerrero and discussed patient's condition discharge planning Possible acute rehab versus subacute versus SNF. He requested updated most recent PT evaluation report Plan of care reviewed with the patient, his nurse and the case management Brief history; 74-year-old male with known history of hypertension, end-stage renal disease, on HD, atrial fibrillation diabetes mellitus, bilateral BKA, history of GI bleed and CVA in the past was admitted through emergency room with acute CVA , not a candidate for TPA, patient had extensive neuro work-up, Though patient has A. fib, not on anticoagulation in view of severe GI bleeding, hence patient has been having recurrent CVA, cardiology, GI, neurology Following the patient, GI was consulted for recommendations for chronic anticoagulation from GI perspective, to prevent recurrent CVAs in the future. GI evaluated and scheduled for EGD for today, defer chronic anticoagulation to cardiology/neurology and GI. History Interval history: I have seen and examined the patient at the bedside this morning Patient's chart current medications, vital signs reviewed Patient is n.p.o. status, scheduled for EGD today per GI No new complaints Vital signs noted Hospitalist Physical - Constitutional Vitals: Temp Pulse Resp BP Pulse Ox 98.4 F 96 H 16 125/72 97 10/13/20 20:19 10/13/20 21:07 10/13/20 20:38 10/13/20 21:07 10/13/20 20:19 General appearance: Present: mild distress, well-nourished, other (Chronically ill looking) - EENT Eyes: Present: PERRL, EOM intact - Neck Neck: Present: supple, normal ROM - Respiratory Respiratory effort: normal Respiratory: bilateral: diminished, negative: rales, rhonchi, wheezing - Cardiovascular Rhythm: regular Heart Sounds: Present: S1 & S2 - Extremities Extremities: no ischemia, abnormal (Bilateral BKA) - Abdominal General gastrointestinal: soft, non-tender, non-distended, normal bowel sounds - Integumentary Integumentary: Present: clear, warm - Psychiatric Psychiatric: appropriate mood/affect, cooperative - Neurologic Neurologic: moves all extremities HEART Score - HEART Score Troponin: Troponin T 0.410 ng/mL (0.00-0.029) H* 10/10/20 04:32 Results - Labs CBC & Chem 7: 10/11/20 09:36 10/11/20 09:36 Labs: Laboratory Last Values WBC 7.5 K/mm3 (4.5-11.0) 10/10/20 04:32 RBC 2.30 M/mm3 (3.65-5.03) L 10/10/20 04:32 Hgb 9.2 gm/dl (11.8-15.2) L 10/11/20 09:36 Hct 28.1 % (35.5-45.6) L D 10/11/20 09:36 MCV 91 fl (84-94) 10/10/20 04:32 MCH 30 pg (28-32) 10/10/20 04:32 MCHC 33 % (32-34) 10/10/20 04:32 RDW 17.5 % (13.2-15.2) H 10/10/20 04:32 Plt Count 172 K/mm3 (140-440) 10/10/20 04:32 Lymph % (Auto) 15.7 % (13.4-35.0) 10/07/20 21:09 [place] % (Auto) 8.8 % (0.0-7.3) H 10/07/20 21:09 Eos % (Auto) 5.0 % (0.0-4.3) H 10/07/20 21:09 Baso % (Auto) 1.0 % (0.0-1.8) 10/07/20 21:09 Lymph # (Auto) 0.9 K/mm3 (1.2-5.4) L 10/07/20 21:09 [place] # (Auto) 0.5 K/mm3 (0.0-0.8) 10/07/20 21:09 Eos # (Auto) 0.3 K/mm3 (0.0-0.4) 10/07/20 21:09 Baso # (Auto) 0.1 K/mm3 (0.0-0.1) 10/07/20 21:09 Seg Neutrophils % 69.5 % (40.0-70.0) 10/07/20 21:09 Seg Neutrophils # 3.8 K/mm3 (1.8-7.7) 10/07/20 21:09 PT 14.8 Sec. (12.2-14.9) 10/07/20 21:09 INR 1.15 (0.87-1.13) H 10/07/20 21:09 APTT 33.0 Sec. (24.2-36.6) 10/07/20 21:09 Thrombin Time 15.0 Sec. (15.1-19.6) L 10/07/20 21:09 Sodium 140 mmol/L (137-145) 10/11/20 09:36 Potassium 3.2 mmol/L (3.6-5.0) L 10/11/20 09:36 Chloride 98.9 mmol/L (98-107) 10/11/20 09:36 Carbon Dioxide 28 mmol/L (22-30) 10/11/20 09:36 Anion Gap 16 mmol/L 10/11/20 09:36 BUN 20 mg/dL (9-20) 10/11/20 09:36 Creatinine 5.1 mg/dL (0.8-1.3) H 10/11/20 09:36 Estimated GFR 14 ml/min 10/11/20 09:36 BUN/Creatinine Ratio 4 % 10/11/20 09:36 Glucose 95 mg/dL (75-100) 10/11/20 09:36 POC Glucose 112 mg/dL (70-105) H 10/13/20 17:55 Calcium 10.0 mg/dL (8.4-10.2) 10/11/20 09:36 Magnesium 1.60 mg/dL (1.7-2.3) L 10/12/20 15:31 Troponin T 0.410 ng/mL (0.00-0.029) H* 10/10/20 04:32 Triglycerides 97 mg/dL (2-149) 10/07/20 21:09 Cholesterol 118 mg/dL (50-199) 10/07/20 21:09 LDL Cholesterol Direct 38 mg/dL (50-130) L 10/07/20 21:09 HDL Cholesterol 64 mg/dL (40-59) H 10/07/20 21:09 Cholesterol/HDL Ratio 1.84 % 10/07/20 21:09 Hepatitis A IgM Ab Non-reactive (NonReactive) 10/10/20 14:24 Hep Bs Antigen Non-reactive (Negative) 10/10/20 14:24 Hep B Core IgM Ab Non-reactive (NonReactive) 10/10/20 14:24 Hepatitis C Antibody Non-reactive (NonReactive) 10/10/20 14:24 Blood Type O POSITIVE 10/10/20 14:20 Antibody Screen Negative 10/10/20 14:20 Crossmatch See Detail 10/10/20 14:20 Microbiology: Microbiology 10/11/20 08:38 Nares - Right MRSA Culture - Final - Diagnostic Impressions Diagnostic Impressions: Echocardiogram 10/07/20 23:22 Transthoracic Echocardiogram Indication: Stroke BP: 136/83 HR: 92 Conclusions *The left ventricular chamber size is normal. *Mild concentric left ventricular hypertrophy is observed. *The estimated ejection fraction is 50-55%. *Abnormal left ventricular diastolic function is observed. *The left atrium is severely dilated. *The right ventricular global systolic function is mildly reduced. *The right atrium is moderate to severely dilated. *No atrial septal defected is demonstrated by agitated saline contrast. *There is mild tricuspid regurgitation. *The right ventricular systolic pressure is calculated at 62 mmHg. Findings Left Ventricle: The left ventricular chamber size is normal. Mild concentric left ventricular hypertrophy is observed. Global left ventricular wall motion and contractility are within normal limits. Global left ventricular systolic function is normal. The estimated ejection fraction is 50-55%. Abnormal left ventricular diastolic function is observed. Left Atrium: The left atrium is severely dilated. Right Ventricle: The right ventricular cavity size is normal. The right ventricular global systolic function is mildly reduced. Right Atrium: The right atrium is moderate to severely dilated. No atrial septal defected is demonstrated by agitated saline contrast. Mitral Valve: The mitral valve leaflets are mildly thickened. There is mild mitral regurgitation. Tricuspid Valve: The tricuspid valve leaflets are normal. There is mild tricuspid regurgitation. The right ventricular systolic pressure is calculated at 62 mmHg. Pulmonic Valve: The pulmonic valve appears normal. There is trace pulmonic regurgitation. Pericardium: There is no pericardial effusion. Venous: The inferior vena cava is dilated. Measurements Chambers 2D Name Value Normal Range IVSd (2D) 1.44 cm (0.6 - 1.1) LVPWd (2D) 1.18 cm (0.6 - 1.1) LVIDd (2D) 5.3 cm (3.7 - 5.6) LVIDs (2D) 4.25 cm (2 - 3.8) LV FS (2D) 19.78 % - EF Teichholz (2D) 40.24 % - Ao root diameter (2D) 3.15 cm (2 - 3.7) Volumes/Mass Name Value Normal Range LA ESV SP 4CH (A/L) 111.72 ml - LA ESV SP 2CH (A/L) 109.85 ml - LA ESV BP (A/L) 111.95 ml - LA ESV BP (A/L) index 62.93 ml/m2 - LA ESV SP 4CH (MOD) 105.89 ml - LA ESV SP 2CH (MOD) 103.64 ml - LA ESV BP (MOD) 110.1 ml - LA ESV BP (MOD) index 59.2 ml/m2 - Aortic Valve Name Value Normal Range AV Vmax 2.44 m/sec - AV VTI 42.43 cm - AV peak gradient 23.82 mmHg - AV mean gradient 11.98 mmHg - LVOT diameter 2.01 cm - LVOT Vmax 1.17 m/sec - LVOT VTI 21.23 cm - LVOT peak gradient 5.51 mmHg - LVOT mean gradient 2.95 mmHg - SV LVOT 67.48 ml - MARY (continuity Vmax) 1.53 cm2 - MARY (continuity VTI) 1.59 cm2 - Ascending Ao 3.99 cm - Mitral Valve Name Value Normal Range MV PHT 48.72 msec - MR Vmax 4.9 m/sec - MVA (PHT) 4.52 cm2 - Tricuspid Valve Name Value Normal Range TR Vmax 3.7 m/sec - TR peak gradient 54.73 mmHg - RAP 8 mmHg - RVSP 62 mmHg - IVC diameter 2.24 cm (1.2 - 2.3) Pulmonic Valve/Qp:Qs Name Value Normal Range PA end-diastolic Vmax 0.86 m/sec - PV acceleration time 68.51 msec - [place]aley/IV: Voiding Method Urinal IV Catheter Type [Right INT / Saline Lock Subclavian] IV Catheter Type [Right INT / Saline Lock Antecubital] Active Medications - Current Medications Current Medications: Generic Name Dose Route Start Last Admin Trade Name Freq PRN Reason Stop Dose Admin Acetaminophen 650 mg 10/07/20 23:14 10/12/20 22:06 Tylenol PO 650 mg Q4H PRN Administration Pain, Mild (1-3) Amlodipine Besylate 10 mg 10/08/20 08:00 10/13/20 08:09 Amlodipine PO Not Given DAILY@0800 FRANCOIS Aspirin 81 mg 10/08/20 10:00 10/13/20 13:56 Halfprin Ec PO Not Given QDAY [facility] Atorvastatin Calcium 40 mg 10/08/20 22:00 10/13/20 21:07 Lipitor PO 40 mg QHS [facility] Administration Bisacodyl 10 mg 10/07/20 23:14 Dulcolax PA QDAY PRN Constipation Calcium Acetate 667 mg 10/08/20 08:00 10/13/20 17:39 Phoslo PO 667 mg TIDWM [facility] Administration Cyproheptadine HCl 4 mg 10/08/20 10:00 10/13/20 13:57 Periactin PO Not Given DAILY [facility] Dextrose 0 ml 10/07/20 23:14 D50w (25gm) Syringe IV Q30MIN PRN Hypoglycemia Protocol Epoetin Theron 20,000 unit 10/08/20 19:53 Procrit IV BRYAN PRN hemodialysis Ferrous Sulfate 325 mg 10/09/20 10:00 10/13/20 21:07 Feosol PO 325 mg BID [facility] Administration Folic Acid 1 mg 10/08/20 10:00 10/13/20 13:56 Folvite PO Not Given DAILY [facility] Sodium Chloride 100 mls @ 999 mls/hr 10/08/20 19:53 Nacl 0.9% IV BRYAN PRN Hypotension Sodium Chloride 1,000 mls @ 50 mls/hr 10/13/20 17:15 10/13/20 17:40 Nacl 0.9% 1000 Ml IV 50 mls/hr DIRECT [facility]ANCOIS Administration Insulin Human Lispro 0 unit 10/08/20 07:30 10/13/20 18:05 Humalog SUB-Q Not Given ACHS [facility] Protocol Lactobacillus Acidophilus 1 each 10/08/20 10:00 10/13/20 13:56 Lactinex PO Not Given QDAY [facility] Losartan Potassium 25 mg 10/08/20 10:00 10/13/20 13:56 Cozaar PO Not Given QDAY [facility] Magnesium Hydroxide 30 ml 10/07/20 23:14 Milk Of Magnesia PO Q4H PRN Constipation Metoclopramide HCl 5 mg 10/07/20 23:14 Reglan PO Q6H PRN Nausea And Vomiting Metoprolol Tartrate 100 mg 10/10/20 22:00 10/13/20 21:07 Metoprolol PO 100 mg BID [facility] Administration Morphine Sulfate 2 mg 10/07/20 23:14 10/13/20 20:08 Morphine IV 2 mg Q4H PRN Administration Pain, Moderate (4-6) Ondansetron HCl 4 mg 10/07/20 23:14 Zofran IV Q8H PRN Nausea And Vomiting Pantoprazole Sodium 40 mg 10/14/20 07:30 Protonix PO BIDAC [facility] Promethazine HCl 25 mg 10/07/20 23:14 Phenergan PA Q6H PRN Nausea And Vomiting Sodium Chloride 10 ml 10/08/20 10:00 10/13/20 21:07 Sodium Chloride Flush Syringe 10 Ml IV 10 ml BID [facility] Administration Sodium Chloride 10 ml 10/07/20 23:14 Sodium Chloride Flush Syringe 10 Ml IV PRN PRN LINE FLUSH Vancomycin HCl 125 mg 10/10/20 18:00 10/13/20 17:39 Vancomycin Po PO 125 mg Q6HR [facility] Administration Nutrition/Malnutrition Assess - Dietary Evaluation Nutrition/Malnutrition Findings: Nutrition Notes Start: 10/08/20 13:04 Freq: Status: Active Protocol: Document 10/12/20 12:32 SAM (Rec: 10/12/20 12:36 BK [id number]) Co-Sign 10/12/20 12:32 MK Nutrition Notes Initial or Follow up Reassessment Current Diagnosis CKD (stage V CKD),Diabetes, Hypertension,Stroke, Hyperlipidemia Other Pertinent Diagnosis CVA Current Diet Mech soft w/ ground meats/ consistent CHO/renal Labs/Tests 10/11 K 3.2 Cr 5.1 Pertinent Medications Folic Acid Feosol Height 5 ft 7 in Weight 74.5 kg [place] Body Weight (kg) 67.27 BMI 25.7 Weight Status Appropriate Subjective/Other Information F/U for diet education and intakes. Pt at HD at time of visit. Per RN, pt consuming 100% meals. Percent of energy/protein needs met: 100%/100% Burn Absent Trauma Absent GI Symptoms None Food Allergy No Current % PO Good (75-100%) Minimum of two criteria No Reduced Electronics Tech Strength Measurably Reduced (severe) #1 Nutrition Diagnosis Inadequate oral intake As Evidenced by Signs and Symptoms pt consuming 100% meals Diagnosis Progress(for reassessment Improved documentation) Is patient on ventilator? No Is Patient Ambulatory and/or Out of Bed No REE-([place] Jeor-confined to bed) 9821.035 Calculation Used for Recommendations [place] or Additional Notes Pro needs >1.2g/kg: >91g/day Fluid needs 1-1.5L/day Nutrition Intervention Change Diet Order: Continue Goal #1 Meet at least 80% energy and protein needs via PO intakes Anticipated Discharge Needs: Renal/Consistent CHO Follow-Up By: 10/17/20 Additional Comments F/U for stroke diet education, intakes
[2020-10-14] MEDS: VANCOMYCIN 250 MG/10 ML ORAL LIQD PO SCH ×4 (00:18→19:47)
--- NOTE | 2020-10-14 07:56 | Progress Note ---
Assessment and Plan onsulted GI for recommendations regarding chronic anticoagulation in this A. fib patient with recurrent CVA in the setting of history of severe GI bleeding. GI scheduled for EGD today --History of atrial fibrillation; rate controlled Continue AV octaviano blocking agents, not on anticoagulation Secondary to severe GI bleeding requiring blood transfusion. Patient is not on anticoagulation due to h/o severe GI bleeding. --Anemia/acute blood loss anemia; Status post 1 unit PRBC transfusion Hb improved from 6.8-9.2 Closely monitor, transfuse additional PRBC as needed --Acute CVA; Not a candidate for TPA, aspirin and statin Neurology evaluation noted and appreciated Patient was not on anticoagulation for A. fib due to Recent severe GI bleeding Decision to start anticoagulation per cardio/GI/Neurology Physical therapy occupational therapy rehabilitation --History of CVA; With residual weakness, continue PT OT supportive care MRI; small subacute infarction left centrum semiovale --End-stage renal disease; on hemodialysis Nephrology following, HD per schedule --History of GI bleeding in the past; Severe anemia, closely monitor H&H Transfuse if Hb is less than 7, GI consult as needed --Peripheral vascular disease; continue antiplatelets and statins Supportive care --History of bilateral BKA; Physical therapy occupational therapy supportive care Subjective Date of service: 10/14/20 Principal diagnosis: esrd Interval history: Spoke with all questions and concerns answered. Patient's Accu-Chek and remained stable between 111 and 145. EGD showed antral gastritis with clear borders. No active bleeding. Patient restarted back on Eliquis. I did speak to and she stated that patient was taking 2.5 Eliquis twice daily. She would prefer not having to use Coumadin to have PT/INR checked. Objective - Constitutional Vitals: Vital Signs - 12hr 10/13/20 10/13/20 10/13/20 19:57 20:08 20:13 Temperature Pulse Rate 90 Pulse Rate [ Apical] Pulse Rate [ From Monitor] Respiratory 16 Rate Respiratory 16 Rate [Right Knee] Blood Pressure O2 Sat by Pulse Oximetry 10/13/20 10/13/20 10/13/20 20:19 20:38 21:07 Temperature 98.4 F Pulse Rate 96 H 96 H Pulse Rate [ Apical] Pulse Rate [ From Monitor] Respiratory 18 16 Rate Respiratory Rate [Right Knee] Blood Pressure 125/72 125/72 O2 Sat by Pulse 97 Oximetry 10/13/20 10/13/20 10/14/20 22:00 23:40 04:14 Temperature 97.8 F 97.4 F L Pulse Rate 85 72 Pulse Rate [ 96 H Apical] Pulse Rate [ 96 H From Monitor] Respiratory 18 18 17 Rate Respiratory Rate [Right Knee] Blood Pressure 140/79 O2 Sat by Pulse 97 98 96 Oximetry General appearance: Present: no acute distress, well-nourished - EENT Eyes: PERRL, EOM intact ENT: hearing intact, clear oral mucosa Ears: bilateral: normal - Neck Neck: supple, normal ROM - Respiratory Respiratory effort: normal Respiratory: bilateral: CTA - Breasts Breasts: normal - Cardiovascular Rhythm: regular Heart Sounds: Present: S1 & S2. Absent: gallop, rub Extremities: pulses intact, No edema, normal color, Full ROM - Gastrointestinal General gastrointestinal: Present: soft, non-tender, non-distended, normal bowel sounds - Genitourinary Male genitourinary: normal - Integumentary Integumentary: clear, warm, dry - Musculoskeletal Musculoskeletal: 1, strength equal bilaterally - Neurologic Neurologic: moves all extremities - Labs CBC & Chem 7: 10/14/20 08:26 10/11/20 09:36 Labs: Abnormal lab results 10/13/20 10/13/20 Range/Units 17:55 22:06 POC Glucose 112 H 165 H (70-105) mg/dL HEART Score - HEART Score Troponin: Troponin T 0.410 ng/mL (0.00-0.029) H* 10/10/20 04:32
--- NOTE | 2020-10-14 08:43 | Progress Note ---
Assessment and Plan Impression * End stage renal disease * Acute CVA * Atrial fibrillation * Peripheral artery disease * Anemia secondary to ESRD * Secondary hyperparathyroidism Plan * Will continue HD TTS schedule * Neurology recommendations reviewed * Transfuse pRBC prn * Gi following, recs and plans noted * Epogen TIW * Renal diet * Dose medications for renal function * ok to dc from renal standpoint Subjective Date of service: 10/14/20 Principal diagnosis: esrd Interval history: resting in bed today Objective - Exam Narrative Exam: General appearance: well-developed, well-nourished EENT: ATNC Respiratory: Clear to Ascultation Heart: regular, S1S2 Gastrointestinal: Present: other (PD cathter in place). Absent: normal, tenderness, distended Integumentary: no rash, warm and dry Neurologic: other (slurred speech) Musculoskeletal: Present: other (Bilateral BKA) Psychiatric: cooperative - Vital Signs Vital signs: Vital Signs - 12hr 10/13/20 10/13/20 10/13/20 21:07 22:00 23:40 Temperature 97.8 F Pulse Rate 96 H 85 Pulse Rate [ 96 H Apical] Pulse Rate [ 96 H From Monitor] Respiratory 18 18 Rate Blood Pressure 125/72 O2 Sat by Pulse 97 98 Oximetry 10/14/20 04:14 Temperature 97.4 F L Pulse Rate 72 Pulse Rate [ Apical] Pulse Rate [ From Monitor] Respiratory 17 Rate Blood Pressure 140/79 O2 Sat by Pulse 96 Oximetry - Lab 10/11/20 09:36 10/11/20 09:36 Most recent lab results Calcium 10.0 mg/dL (8.4-10.2) 10/11/20 09:36 Magnesium 1.60 mg/dL (1.7-2.3) L 10/12/20 15:31 Medications & Allergies - Medications Allergies/Adverse Reactions: Allergies minoxidil Allergy (Severe, Verified 07/30/13 01:36) Angioedema Home Medications: Home Medications Medication Instructions Recorded Confirmed Last Taken Type Glimepiride [Amaryl] 1 mg PO QAM #30 tablet 08/09/13 10/07/20 1 Day Ago Rx ~10/06/20 Pantoprazole [Protonix] 40 mg PO QDAY #30 tablet 08/09/13 10/07/20 1 Day Ago Rx ~10/06/20 Apixaban [Eliquis] 2.5 mg PO BID 10/07/20 10/07/20 1 Day Ago History ~10/06/20 AtorvaSTATin [Lipitor] 40 mg PO QHS 10/07/20 10/07/20 1 Day Ago History ~10/06/20 Calcium Acetate [Phoslo] 667 mg PO TID 10/07/20 10/07/20 1 Day Ago History ~10/06/20 Cyproheptadine 4 mg PO DAILY 10/07/20 10/07/20 Unknown History Folic Acid 1 mg PO DAILY 10/07/20 10/07/20 1 Day Ago History ~10/06/20 L. Acidophilus/Bifid. Animalis 1 each PO DAILY 10/07/20 10/07/20 Unknown History [Dialyvite Chewable Probiotic] Losartan [Cozaar] 25 mg PO QDAY 10/07/20 10/07/20 1 Day Ago History ~10/06/20 Metoprolol [Lopressor TAB] 50 mg PO BID 10/07/20 10/07/20 1 Day Ago History ~10/06/20 Vancomycin 1,250 mg/12.5 ml Vl 125 mg PO DAILY 10/07/20 10/07/20 1 Day Ago History ~10/06/20 amLODIPine [Norvasc] 10 mg PO DAILY 10/07/20 10/07/20 1 Day Ago History ~10/06/20 Active Medications: Generic Name Dose Route Start Last Admin Trade Name Freq PRN Reason Stop Dose Admin Acetaminophen 650 mg 10/07/20 23:14 10/12/20 22:06 Tylenol PO 650 mg Q4H PRN Administration Pain, Mild (1-3) Amlodipine Besylate 10 mg 10/08/20 08:00 10/13/20 08:09 Amlodipine PO Not Given DAILY@0800 FRANCOIS Aspirin 81 mg 10/08/20 10:00 10/13/20 13:56 Halfprin Ec PO Not Given QDAY [facility] Atorvastatin Calcium 40 mg 10/08/20 22:00 10/13/20 21:07 Lipitor PO 40 mg QHS [facility] Administration Bisacodyl 10 mg 10/07/20 23:14 Dulcolax [place] QDAY PRN Constipation Calcium Acetate 667 mg 10/08/20 08:00 10/13/20 17:39 Phoslo PO 667 mg TIDWM [facility] Administration Cyproheptadine HCl 4 mg 10/08/20 10:00 10/13/20 13:57 Periactin PO Not Given DAILY [facility] Dextrose 0 ml 10/07/20 23:14 D50w (25gm) Syringe IV Q30MIN PRN Hypoglycemia Protocol Epoetin Theron 20,000 unit 10/08/20 19:53 Procrit IV BRYAN PRN hemodialysis Ferrous Sulfate 325 mg 10/09/20 10:00 10/13/20 21:07 Feosol PO 325 mg BID [facility] Administration Folic Acid 1 mg 10/08/20 10:00 10/13/20 13:56 Folvite PO Not Given DAILY [facility] Sodium Chloride 100 mls @ 999 mls/hr 10/08/20 19:53 Nacl 0.9% IV BRYAN PRN Hypotension Sodium Chloride 1,000 mls @ 50 mls/hr 10/13/20 17:15 10/13/20 17:40 Nacl 0.9% 1000 Ml IV 50 mls/hr DIRECT [facility]ANCO[facility] Administration Insulin Human Lispro 0 unit 10/08/20 07:30 10/13/20 22:29 Humalog SUB-Q Not Given ACHS [facility] Protocol Lactobacillus Acidophilus 1 each 10/08/20 10:00 10/13/20 13:56 Lactinex PO Not Given QDAY [facility] Losartan Potassium 25 mg 10/08/20 10:00 10/13/20 13:56 Cozaar PO Not Given QDAY [facility] Magnesium Hydroxide 30 ml 10/07/20 23:14 Milk Of Magnesia PO Q4H PRN Constipation Metoclopramide HCl 5 mg 10/07/20 23:14 Reglan PO Q6H PRN Nausea And Vomiting Metoprolol Tartrate 100 mg 10/10/20 22:00 10/13/20 21:07 Metoprolol PO 100 mg BID [facility] Administration Morphine Sulfate 2 mg 10/07/20 23:14 10/13/20 20:08 Morphine IV 2 mg Q4H PRN Administration Pain, Moderate (4-6) Ondansetron HCl 4 mg 10/07/20 23:14 Zofran IV Q8H PRN Nausea And Vomiting Pantoprazole Sodium 40 mg 10/14/20 07:30 Protonix PO BIDAC [facility] Promethazine HCl 25 mg 10/07/20 23:14 Phenergan [place] Q6H PRN Nausea And Vomiting Sodium Chloride 10 ml 10/08/20 10:00 10/13/20 21:07 Sodium Chloride Flush Syringe 10 Ml IV 10 ml BID [facility]COIS Administration Sodium Chloride 10 ml 10/07/20 23:14 Sodium Chloride Flush Syringe 10 Ml IV PRN PRN LINE FLUSH Vancomycin HCl 125 mg 10/10/20 18:00 10/14/20 05:48 Vancomycin Po PO 125 mg Q6HR [facility] Administration
[2020-10-14 09:22] LABS: Hematocrit 31.2 % (35.5-45.6); Hemoglobin 10.3 gm/dl (11.8-15.2); Mean Corpuscular HGB Conc 33 % (32-34); Mean Corpuscular Volume 89 fl (84-94); Platelet Count 246 K/mm3 (140-440); Red Blood Count 3.52 M/mm3 (3.65-5.03); Red Cell Distribution Width 15.9 % (13.2-15.2)
[2020-10-14] MEDS: INSULIN LISPRO 100 UNIT/ML VIAL 3 mL SUB-Q SCH ×2 (10:14→16:08)
[2020-10-14] MEDS: PANTOPRAZOLE 40 MG TAB PO SCH ×3 (10:14→18:22)
[2020-10-14] MEDS: CALCIUM ACETATE 667 MG CAP PO SCH ×3 (10:24→18:23)
[2020-10-14] MEDS: amLODIPine 10 MG TAB PO SCH (10:24)
--- NOTE | 2020-10-14 13:16 | Gastroenterology Progress Note ---
Assessment and Plan This is a 74 yo male with pmh of HTN, DM, CVA, recent b/l BKA, PAD, afib, h/o refractory C diff, and recent admission at [facility] earlier this month for GI bleed with gastric ulcer admitted for recurrent stroke. GI consulted for evaluation of anemia. # H/o refractory C diff - s/p multiple courses of PO vancomycin, with prolonged taper, bezlotoxumab infusion in 01/2020, and FMT with Dr. Alvarez in 03/2020, which showed normal colon exam on colonoscopy. - per nursing, no BM today. - continue with PO vancomycin for ppx. # Anemia - Recent GI bleed during admission at [facility] earlier this month. Records indicating gastric ulcer and duodenal ulcers seen on EGD. Hgb was down to 5 at that time with melena. - currently no signs of active GI bleeding. 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 Anticoagulation was held, previously was on eliquis due to recent GI bleed. Ideally would need anticoagulation given recurrent stroke. - s/p EGD on 10/13/2020 with antral gastritis and a small clean based ulcer without high risk stigmata and duodenitis. - doing well without bleeding. - H/H stable. Rec - Resume anticoagulation as needed for afib and CVA. Recommend consideration for Watchman's procedure. - Monitor for signs of bleeding. - Protonix 40 mg bid for 6-8 weeks. - Follow up outpatient GI clinic. May need repeat EGD to ensure ulcer healing. - will sign off. please call as needed. - Patient Problems (1) Anemia Current Visit: Yes Status: Chronic Subjective Date of service: 10/14/20 Principal diagnosis: esrd Interval history: S/p EGD on 10/13/2020. Doing well this morning. Tolerating diet. No BM. Objective - Constitutional Vitals: Temp Pulse Resp BP Pulse Ox 98.4 F 89 16 128/82 99 10/14/20 10:10 10/14/20 10:30 10/14/20 10:10 10/14/20 10:30 10/14/20 09:06 General appearance: no acute distress - EENT Eyes: EOM intact ENT: hearing intact - Respiratory Respiratory effort: normal Respiratory: bilateral: CTA - Cardiovascular Rhythm: irregularly irregular Heart Sounds: Present: S1 & S2 - Gastrointestinal General gastrointestinal: Present: soft, non-tender, non-distended - Integumentary Integumentary: Present: clear, warm - Labs CBC & Chem 7: 10/14/20 08:26 10/11/20 09:36 Labs: Laboratory Results - last 24 hr 10/13/20 10/13/20 10/14/20 17:55 22:06 07:34 WBC RBC Hgb Hct MCV MCH MCHC RDW Plt Count POC Glucose 112 H 165 H 101 10/14/20 08:26 WBC 6.5 RBC 3.52 L Hgb 10.3 L Hct 31.2 L MCV 89 MCH 29 MCHC 33 RDW 15.9 H Plt Count 246 POC Glucose
[2020-10-14] MEDS: FERROUS SULFATE 325 MG TAB PO SCH (14:56)
[2020-10-14] MEDS: LOSARTAN 25 MG TAB PO SCH (14:56)
[2020-10-14] MEDS: ASPIRIN EC 81 MG TAB PO SCH (14:56)
[2020-10-14] MEDS: LACTINEX CHEW TAB PO SCH (14:56)
[2020-10-14] MEDS: FOLIC ACID 1 MG TAB PO SCH (14:57)
[2020-10-14] MEDS: METOPROLOL TARTRATE 50 MG TAB PO SCH (14:57)
[2020-10-14] MEDS: CYPROHEPTADINE 4 MG TAB PO SCH (14:58)
[2020-10-14 15:00] VITALS: BP 134/98
--- NOTE | 2020-10-14 16:00 | Discharge Summary ---
Providers - Providers Date of Admission: 10/07/20 23:06 Date of discharge: 10/14/20 Attending physician: DESTINY DALEY 10/07/20 23:14 Consult to Physician [CONS] Routine Comment: Consulting Provider: CORDELIA GUIDO Physician Instructions: Reason For Exam: Aphasia R/O CVA 10/07/20 23:16 Consult to Dietitian/Nutrition [CONS] Routine Physician Instructions: Reason For Exam: Reason for Consult: Nutrition Recommendations Reason for Consult: Diet education Occupational Therapy Evaluate and Treat [CONS] Routine Comment: Reason For Exam: Neuro deficits Physical Therapy Evaluation and Treat [CONS] Routine Comment: Reason For Exam: Neuro deficits 10/07/20 23:20 Speech Therapy Evaluation and Treat [CONS] Routine Reason For Exam: swallow eval 10/08/20 07:09 Consult to Physician [CONS] Routine Comment: Consulting Provider: MADDY TURNER Physician Instructions: Reason For Exam: ESRD 10/08/20 07:36 Consult to Physician [CONS] Routine Comment: Consulting Provider: JAVON TRIVEDI Physician Instructions: Reason For Exam: TYPE 2 MD 10/09/20 08:51 Consult to Wound/ET Nurse [CONS] Routine Reason For Exam: wound eval 10/09/20 09:11 Speech Therapy Evaluation and Treat [CONS] Routine Reason For Exam: APHASIA 10/12/20 13:46 Consult to Physician [CONS] Routine Comment: Consulting Provider: JACQUELINE HUNT Physician Instructions: Reason For Exam: GI bleeding/anemia/pt needs anticoag /advise [facility] Condition: Fair Hospital course: Patientnsulted GI for recommendations regarding chronic anticoagulation in this A. fib patient with recurrent CVA in the setting of history of severe GI bleeding. complet see results cont protonix --History of atrial fibrillation; rate controlled Continue AV octaviano blocking agents, on eliquis. --Anemia/acute blood loss anemia; Status post 1 unit PRBC transfusion Hb improved from 6.8-9.2 Closely monitor, transfuse additional PRBC as needed --Acute CVA; Not a candidate for TPA, aspirin and statin Neurology evaluation noted and appreciated Patient was not on anticoagulation for A. fib due to Recent severe GI bleeding Decision to start anticoagulation per cardio/GI/Neurology Patient scheduled to go to acute rehab from home. --History of CVA; With residual weakness, continue PT OT supportive care MRI; small subacute infarction left centrum semiovale' subacute nonacute. Stable to go to acute rehab upon discharge. --End-stage renal disease; on hemodialysis Nephrology following, HD per schedule --History of GI bleeding in the past; H&H is 10 and 32. --Peripheral vascular disease; continue antiplatelets and statins Supportive care --History of bilateral BKA; Physical therapy occupational therapy supportive care # H/o refractory C diff - s/p multiple courses of PO vancomycin, with prolonged taper, bezlotoxumab infusion in 01/2020, and FMT with Dr. Alvarez in 03/2020, which showed normal colon exam on colonoscopy. - per nursing, no BM today. - continue with PO vancomycin for ppx. Patient to be discharged with vancomycin. Family wants patient to be discharged today and take to fdc facility from home. -To cardiology for possible watchman procedure monitor evidence of bleeding at home. Protonix 40 mg twice daily for 6 weeks. May need repeat EGD. Patient to follow-up with GI in 4 weeks. # Anemia - Recent GI bleed patient EGD showed antral gastritis stable clear border. No active bleeding.. - currently no signs of active GI bleeding. - patient is with 3rd CVA. MRI no evidence of acute ischemic CVA at this time.. Anticoagulation was held, previously was on eliquis due to recent GI bleed. Patient has been reevaluated and stable to restart Eliquis. Family does not really want to start Coumadin at this time. Giving antistroke medication Eliquis. . - s/p EGD on 10/13/2020 with antral gastritis and a small clean based ulcer without high risk stigmata and duodenitis. - doing well without bleeding. - H/H stable. Disposition: [id number] INPT [facility]AB FACILITY Core Measure Documentation - Palliative Care Palliative Care/ Comfort Measures: Not Applicable - Core Measures Any of the following diagnoses?: stroke, none - Stroke Discharge Requirements Statin for LDL = or >70 mg/dl on DC: Yes Anticoag for atrial fib/atrial flutter: Yes Antithrombotic for ischemic stroke: Yes Exam - Constitutional Vitals: Temp Pulse Resp BP Pulse Ox 97.8 F 74 20 134/98 96 10/14/20 14:04 10/14/20 14:04 10/14/20 14:04 10/14/20 14:56 10/14/20 10:00 General appearance: Present: no acute distress, well-nourished - EENT Eyes: Present: PERRL ENT: hearing intact, clear oral mucosa - Neck Neck: Present: supple, normal ROM - Respiratory Respiratory effort: normal Respiratory: bilateral: CTA - Cardiovascular Heart Sounds: Present: S1 & S2. Absent: rub, click - Extremities Extremities: pulses symmetrical, No edema Peripheral Pulses: within normal limits - Abdominal General gastrointestinal: Present: soft, non-tender, non-distended, normal bowel sounds Male genitourinary: Present: normal - Integumentary Integumentary: Present: clear, warm, dry - Musculoskeletal Musculoskeletal: strength equal bilaterally, left sided weakness, generalized weakness - Psychiatric Psychiatric: appropriate mood/affect, intact judgment & insight - Neurologic Neurologic: CNII-XII intact, moves all extremities Plan Activity: up only with assistance, fall precautions Weight Bearing Status: Partial Weight Bearing Diet: low fat, low cholesterol, other (Await for rehab until bearing weight and physical activity.) Special Instructions: physical therapy, home health RN Follow up with: RERE [facility] MD KELSIE [Primary Care Provider] - 3-5 Days Prescriptions: amLODIPine 10 mg PO DAILY #30 Apixaban [Eliquis] 2.5 mg PO BID #60 Aspirin EC [Halfprin EC] 81 mg PO QDAY #30 tablet AtorvaSTATin [Lipitor] 40 mg PO QHS #30 tablet Calcium Acetate [Phoslo] 667 mg PO TID #30 cap Pantoprazole [Protonix TAB] 40 mg PO BIDAC #60 tablet Metoclopramide [Reglan TAB] 5 mg PO Q6H PRN #30 tablet PRN Reason: Nausea And Vomiting
== END 2020-10-14 19:45 | disposition home or self-care (01) | DRG 64 ==
LOC: ED 20:45 → 4A 23:06 → UNDODISIN 10-12 21:45
PROVIDERS: ADMIT Internal Medicine Geriatric Medicine; ATTEND Internal Medicine
PROC: 5A1D70Z Performance of Urinary Filtration, Intermittent, Less than 6 Hours Per Day (ICD-10-PCS; 2020-10-10)
PROC: 30233N1 Transfusion of Nonautologous Red Blood Cells into Peripheral Vein, Percutaneous Approach (ICD-10-PCS; 2020-10-11)
PROC: 5A1D70Z Performance of Urinary Filtration, Intermittent, Less than 6 Hours Per Day (ICD-10-PCS; 2020-10-12)
PROC: 0DB68ZX Excision of Stomach, Via Natural or Artificial Opening Endoscopic, Diagnostic (ICD-10-PCS; principal; 2020-10-13)
PROC: 5A1D70Z Performance of Urinary Filtration, Intermittent, Less than 6 Hours Per Day (ICD-10-PCS; 2020-10-14)
DX: I63.9 Cerebral infarction, unspecified (principal); N18.6 End stage renal disease; I21.4 Non-ST elevation (NSTEMI) myocardial infarction; I12.0 Hypertensive chronic kidney disease with stage 5 chronic kidney disease or end stage renal disease; N25.81 Secondary hyperparathyroidism of renal origin; D62 Acute posthemorrhagic anemia; I48.91 Unspecified atrial fibrillation; E11.22 Type 2 diabetes mellitus with diabetic chronic kidney disease; K21.9 Gastro-esophageal reflux disease without esophagitis; R47.1 Dysarthria and anarthria; E78.5 Hyperlipidemia, unspecified; R13.10 Dysphagia, unspecified; E11.51 Type 2 diabetes mellitus with diabetic peripheral angiopathy without gangrene; D63.1 Anemia in chronic kidney disease; K29.00 Acute gastritis without bleeding; R47.01 Aphasia; K29.80 Duodenitis without bleeding; R29.714 NIHSS score 14; Z89.511 Acquired absence of right leg below knee; Z89.512 Acquired absence of left leg below knee; Z79.899 Other long term (current) drug therapy; Z79.01 Long term (current) use of anticoagulants
CPT/HCPCS: 36415; 70450; 70496; 70498; 70551; 80048; 80061; 80074; 82962; 83735; 84484; 85014; 85018; 85025; 85027; 85610; 85670; 85730; 86850; 86900; 86901; 86920; 87116; 87641; 88305; 88342; 93005; 93306; 93880; 94760; 96365; 96375; G0378; A9270-GY; J0885; J2270; J2704; J3370; J7030; P9016; Q9967